=== PATIENT | male | born 1955 | race Caucasian/White ===

== ENCOUNTER → 2020-03-17 15:31 | Outpatient (BNVA) | payer OTHER, SELFPAY | PROVIDERS: PCP Nurse Practitioner; Referring Provider Nurse Practitioner; Visit Provider Urology | DX: R39.12 Poor urinary stream (principal); R35.1 Nocturia; R97.20 Elevated prostate specific antigen [PSA]; N40.1 Benign prostatic hyperplasia with lower urinary tract symptoms; Z12.5 Encounter for screening for malignant neoplasm of prostate | CPT/HCPCS: 99212; Q3014 ==

== ENCOUNTER → 2020-10-25 13:28 | Outpatient (BNVA) | payer OTHER, SELFPAY | PROVIDERS: Visit Provider Student in an Organized Health Care Education/Training Program | DX: R76.8 Other specified abnormal immunological findings in serum (principal) | CPT/HCPCS: 99212 ==

== ENCOUNTER 2020-12-15 06:02 | Outpatient (REF) | payer OTHER, SELFPAY ==
[2020-12-15 11:56] LABS: Alanine Aminotransferase 12 U/L (0-40); Albumin Level 4.4 g/dL (3.5-5.0); Alkaline Phosphatase 126 U/L (39-117); Anion Gap 13 (12-20); Aspartate Amino Transferase 17 U/L (5-37); Bilirubin Total 1.8 mg/dL (0.0-1.0); Blood Urea Nitrogen 9 mg/dL (9-16); Calcium 9.5 mg/dL (8.4-10.2); Carbon Dioxide 26 mmol/L (22-29); Chloride 106 mmol/L (96-108); Cholesterol 173 mg/dL; Estimated Glomerular Filt Rate > 60; Glucose Fasting 87 mg/dL (60-99); HDL Cholesterol 46 mg/dL; LDL Cholesterol Calculated 108 mg/dl; Potassium 4.5 mmol/L (3.3-5.1); Sodium 140 mmol/L (135-145); Total Protein 6.6 g/dL (6.5-8.0); Triglycerides 99 mg/dL
[2020-12-15 12:19] LABS: TSH reflex Free T4 1.37 uIU/mL (0.32-4.0); Vitamin D 25-OH Total 28.1 ng/mL (>30)
== END 2020-12-15 06:03 | disposition home or self-care (01) ==
LOC: HO.HMGCLDS 06:02
PROVIDERS: PCP Nurse Practitioner Family; Visit Provider Nurse Practitioner Family
DX: Z00.00 Encounter for general adult medical examination without abnormal findings (principal)
CPT/HCPCS: 36415; 80053; 80061; 82306; 84443

== ENCOUNTER 2021-03-15 13:13 | Outpatient (REF) | payer OTHER, SELFPAY ==
[2021-03-15 14:43] LABS: PSA,Total (Free>4and<10) 2.87 ng/mL (0.00-4.00)
== END 2021-03-15 13:14 | disposition home or self-care (01) ==
LOC: HO.HMGCLDS 13:13
PROVIDERS: PCP Nurse Practitioner Family; Visit Provider Urology
DX: R97.20 Elevated prostate specific antigen [PSA] (principal); Z12.5 Encounter for screening for malignant neoplasm of prostate
CPT/HCPCS: 36415; 84153

== ENCOUNTER → 2021-04-05 13:38 | Outpatient (BNVA) | payer OTHER, SELFPAY | PROVIDERS: PCP Nurse Practitioner Family; Referring Provider Nurse Practitioner Family; Visit Provider Nurse Practitioner | DX: R17 Unspecified jaundice (principal); R74.8 Abnormal levels of other serum enzymes; Z80.0 Family history of malignant neoplasm of digestive organs | CPT/HCPCS: 99212 ==

== ENCOUNTER 2021-06-01 13:38 | Outpatient (REF) | payer OTHER, SELFPAY ==
[2021-06-01 17:30] LABS: Prostate Specific Antigen 2.71 ng/mL (<0.05-4.0)
== END 2021-06-01 13:39 | disposition home or self-care (01) ==
LOC: HO.HMGCLDS 13:38
PROVIDERS: PCP Nurse Practitioner Family; Visit Provider Urology
DX: Z12.5 Encounter for screening for malignant neoplasm of prostate (principal); R97.20 Elevated prostate specific antigen [PSA]
CPT/HCPCS: 36415; 84153

== ENCOUNTER → 2021-06-19 15:33 | Outpatient (BNVA) | payer MEDICARE, SELFPAY | PROVIDERS: PCP Nurse Practitioner Family; Visit Provider Urology | DX: R97.20 Elevated prostate specific antigen [PSA] (principal) ==

== ENCOUNTER → 2021-06-20 11:16 | Outpatient (BNVA) | payer MEDICARE, SELFPAY | PROVIDERS: Visit Provider Urology | CPT/HCPCS: Q3014 ==

== ENCOUNTER 2021-06-26 09:24 | Outpatient (REF) | payer MEDICARE, SELFPAY ==
[2021-06-26 12:11] LABS: Alanine Aminotransferase 19 U/L (0-40); Albumin Level 4.4 g/dL (3.5-5.0); Alkaline Phosphatase 141 U/L (39-117); Aspartate Amino Transferase 17 U/L (5-37); Bilirubin Direct 0.6 mg/dL (0.0-0.5); Bilirubin Total 1.9 mg/dL (0.0-1.0); Total Protein 6.8 g/dL (6.5-8.0)
[2021-06-26 12:13] LABS: Gamma Glutamyl Transpeptidase 19 U/L (11-51)
[2021-06-26 12:27] LABS: Ferritin 78 ng/mL (20-250)
[2021-06-27 07:47] LABS: HBc Num1 0.09 S/CO (0.00-0.79); HBsAGNum1 0.19 S/CO (0.00-0.99); Hepatitis B Core Antibody Nonreactive (Nonreactive); Hepatitis B Surface Antigen Negative (Negative); ~HepC Num1 0.06 S/CO (0.00-0.79); ~Hepatitis C Antibody Nonreactive (Nonreactive)
[2021-06-27 08:27] LABS: HBS Num1 0.36 mIU/mL (0-7.99); Hepatitis A Antibody IgM 0.16 Index (0-0.79); ~Hepatitis A Antibody IgM Nonreactive (Nonreactive); ~Hepatitis B Surface Antibody NONREACTIVE (Nonreactive)
[2021-06-28 12:16] LABS: Alpha Fetoprotein 3.3 ng/mL (<6.1)
[2021-06-28 13:12] LABS: Anti Nuclear Antibody Screen NEGATIVE (NEGATIVE)
[2021-06-28 15:31] LABS: Mitochondrial Antibodies NEGATIVE (NEGATIVE)
[2021-07-02 10:22] LABS: Smooth Muscle Antibody <20 U (<20)
== END 2021-06-26 09:25 | disposition home or self-care (01) ==
LOC: HO.HMGCLDS 09:24
PROVIDERS: PCP Nurse Practitioner Family; Visit Provider Nurse Practitioner
DX: R17 Unspecified jaundice (principal); R74.8 Abnormal levels of other serum enzymes
CPT/HCPCS: 36415; 80076; 82105; 82728; 82977; 86015; 86038; 86039; 86255; 86256; 86704; 86706; 86709; 86803; 87340

== ENCOUNTER 2021-07-05 08:09 | Outpatient (REF) | payer MEDICARE, SELFPAY ==
--- NOTE | ~2021-07-05 | US_ITS ---
EXAMINATION: US ABDOMEN COMPLETE CLINICAL INFORMATION: Unspecified jaundice. COMPARISON: Ultrasound abdomen complete 04/16/2019. TECHNIQUE: Real-time imaging of the abdominal viscera. FINDINGS: PANCREAS: Normal. ABDOMINAL AORTA: The mid and the distal abdominal aorta are normal caliber. The proximal abdominal aorta is not visualized. INFERIOR VENA CAVA: Visualized portions are normal. LIVER: The liver is normal in size. The liver contour is normal. There is increased liver echogenicity. No focal hepatic lesion. There is no intrahepatic biliary duct dilatation seen. GALLBLADDER: The gallbladder is physiologically distended. Multiple mobile gallstones are present. No evidence of gallbladder wall thickening or pericholecystic fluid. COMMON BILE DUCT: Normal in caliber measuring 0.43 cm in diameter. RIGHT KIDNEY: No hydronephrosis or renal calculi. The kidney measures 11.2 cm in maximum dimension. There are several anechoic cysts. A lower pole cyst measures 0.76 x 0.63 x 0.47 cm, in midpole cyst measures 1.4 x 0.98 x 1.6 cm and a midpole cyst measures 3.3 x 2.4 x 2.7 cm. LEFT KIDNEY: No hydronephrosis or renal calculi. The kidney measures 12.1 cm in maximum dimension. There is anechoic cyst in the lower pole measuring 2.1 x 1.5 x 1.3 cm. SPLEEN: Normal. The spleen measures 10.7 cm in maximum dimension. FREE FLUID: None. US/US abdomen complete IMPRESSION: Bilateral simple renal cyst. No echogenic renal calculi or hydronephrosis. Gallstones with borderline wall thickness of 0.27 cm. Mild hepatic steatosis without focal lesions.
== END 2021-07-05 08:10 | disposition home or self-care (01) ==
LOC: HO.HMGCX 08:09
PROVIDERS: Visit Provider Nurse Practitioner
DX: R17 Unspecified jaundice (principal); R74.8 Abnormal levels of other serum enzymes
CPT/HCPCS: 76700

== ENCOUNTER → 2021-08-28 13:13 | Outpatient (BNVA) | payer MEDICARE, SELFPAY | PROVIDERS: PCP Nurse Practitioner Family; Visit Provider Nurse Practitioner | DX: K80.20 Calculus of gallbladder without cholecystitis without obstruction (principal); R74.8 Abnormal levels of other serum enzymes; R17 Unspecified jaundice | CPT/HCPCS: 99212 ==

== ENCOUNTER 2021-10-10 12:18 | Outpatient (REF) | payer MEDICARE, SELFPAY ==
[2021-10-10 14:00] LABS: Alanine Aminotransferase 24 U/L (0-40); Albumin Level 4.5 g/dL (3.5-5.0); Alkaline Phosphatase 121 U/L (39-117); Aspartate Amino Transferase 30 U/L (5-37); Bilirubin Direct 0.7 mg/dL (0.0-0.5); Bilirubin Total 2.6 mg/dL (0.0-1.0); Total Protein 6.7 g/dL (6.5-8.0)
== END 2021-10-10 12:19 | disposition home or self-care (01) ==
LOC: HO.LAB 12:18
PROVIDERS: PCP Nurse Practitioner Family; Visit Provider Nurse Practitioner
DX: K80.20 Calculus of gallbladder without cholecystitis without obstruction (principal); R17 Unspecified jaundice; R74.8 Abnormal levels of other serum enzymes
CPT/HCPCS: 36415; 80076

== ENCOUNTER → 2021-10-22 14:26 | Outpatient (BNVA) | payer MEDICARE, SELFPAY | PROVIDERS: PCP Nurse Practitioner Family; Referring Provider Nurse Practitioner Family; Visit Provider Nurse Practitioner | DX: K80.20 Calculus of gallbladder without cholecystitis without obstruction (principal); R74.8 Abnormal levels of other serum enzymes; R17 Unspecified jaundice | CPT/HCPCS: 99212 ==

== ENCOUNTER → 2021-10-24 15:12 | Outpatient (BNVA) | payer MEDICARE, SELFPAY | PROVIDERS: PCP Nurse Practitioner Family; Visit Provider Surgery | DX: K80.20 Calculus of gallbladder without cholecystitis without obstruction (principal) | CPT/HCPCS: 99202 ==

== ENCOUNTER → 2022-05-02 13:47 | Outpatient (BNVA) | payer MEDICARE, SELFPAY | PROVIDERS: PCP Nurse Practitioner Family; Visit Provider Nurse Practitioner | DX: K80.20 Calculus of gallbladder without cholecystitis without obstruction (principal); R74.8 Abnormal levels of other serum enzymes; R17 Unspecified jaundice; Z98.890 Other specified postprocedural states | CPT/HCPCS: 99212 ==

== ENCOUNTER 2022-06-07 09:32 | Outpatient (REF) | payer MEDICARE, SELFPAY ==
[2022-06-07 11:22] LABS: MANUAL DIFF FLAG NO
[2022-06-07 11:29] LABS: Basophils Absolute Auto 0.1 X10*3/uL (0.0-0.2); Basophils Percent Auto 1.3 % (0-2); Eosinophils Absolute Auto 0.2 X10*3/uL (0.0-0.4); Eosinophils Percent Auto 4.1 % (0-4); Hematocrit 45.7 % (42.0-52.0); Hemoglobin 15.3 g/dl (14.0-18.0); Lymphocytes Absolute Auto 1.3 X10*3/uL (1.2-4.9); Lymphocytes Percent Auto 29.1 % (20-40); Mean Corpuscular HGB Conc 33.5 g/dl (31.0-36.0); Mean Corpuscular Hemoglobin 30.9 pg (27.0-33.0); Mean Corpuscular Volume 92.3 fL (80.0-98.0); Mean Platelet Volume 10.2 fL (9.4-12.4); Monocytes Absolute Auto 0.6 X10*3/uL (0.1-1.2); Monocytes Percent Auto 13.7 % (2-11); Neutrophils Absolute Auto 2.4 x10*3/uL (2.0-8.3); Neutrophils Percent Auto 51.8 % (45-73); Platelet Count 233 X10*3/uL (160-400); Red Blood Count 4.95 X10*6/uL (4.60-5.80); White Blood Count 4.6 X10*3/uL (4.8-10.8)
[2022-06-07 11:32] LABS: Appearance Urine Cloudy; Color Urine Yellow; Glucose Urine UA Negative (Negative); Leukocyte Esterase Urine Trace (Negative); Nitrite Urine Negative (Negative); PH 8.5 (5.0-9.0); Specific Gravity - Urine 1.015 (1.005-1.025); UMIC TRIGGER UACC YES; Urine Blood Negative (Negative); Urine Ketones Negative (Negative); Urine Protein Negative (Neg-Trace)
[2022-06-07 11:38] LABS: Bacteria Urine None Seen (None Seen); Hyaline Casts Urine 0-2 /LPF (0-2); RBC Urine 0-2 /HPF (0-2); Squamous Epithelial Cell Urine 0-2 /HPF (0-2); UACC Culture Trigger YES
[2022-06-07 12:02] LABS: Alanine Aminotransferase 40 U/L (0-40); Albumin Level 4.2 g/dL (3.5-5.0); Alkaline Phosphatase 129 U/L (39-117); Anion Gap 11 (12-20); Aspartate Amino Transferase 28 U/L (5-37); Bilirubin Total 1.9 mg/dL (0.0-1.0); Blood Urea Nitrogen 10 mg/dL (9-16); Calcium 9.5 mg/dL (8.4-10.2); Carbon Dioxide 31 mmol/L (22-29); Chloride 104 mmol/L (96-108); Cholesterol 158 mg/dL; Estimated Glomerular Filt Rate > 60; Glucose Fasting 96 mg/dL (60-99); HDL Cholesterol 36 mg/dL; LDL Cholesterol Calculated 94 mg/dl; Potassium 4.2 mmol/L (3.3-5.1); Prostate Specific Antigen 1.93 ng/mL (<0.05-4.0); Sodium 142 mmol/L (135-145); Total Protein 6.5 g/dL (6.5-8.0); Triglycerides 141 mg/dL
== END 2022-06-07 09:33 | disposition home or self-care (01) ==
LOC: HO.HMGCLDS 09:32
PROVIDERS: Absent Provider Urology; PCP Nurse Practitioner Family; Visit Provider Nurse Practitioner Family
DX: Z00.00 Encounter for general adult medical examination without abnormal findings (principal); Z12.5 Encounter for screening for malignant neoplasm of prostate; N40.1 Benign prostatic hyperplasia with lower urinary tract symptoms; N13.8 Other obstructive and reflux uropathy
CPT/HCPCS: 36415; 80053; 80061; 81001; 84153; 84443; 85025; 87086

== ENCOUNTER → 2022-06-19 14:26 | Outpatient (BNVA) | payer MEDICARE, SELFPAY | PROVIDERS: PCP Nurse Practitioner Family; Visit Provider Urology | DX: N40.1 Benign prostatic hyperplasia with lower urinary tract symptoms (principal); N13.8 Other obstructive and reflux uropathy; R35.1 Nocturia | CPT/HCPCS: 51798; 99212 ==

== ENCOUNTER 2022-07-01 09:58 | Outpatient (REF) | payer MEDICARE, SELFPAY ==
[2022-07-05 13:33] LABS: Alk.Phos Iso. Macrohepatic 0 % (<=0); Alk.Phos Isoenzymes Bone 32 % (28-66); Alk.Phos Isoenzymes Intest 10 % (1-24); Alk.Phos Isoenzymes Liver 58 % (25-69); Alk.Phos Isoenzymes Placental 0 % (<=0); Alk.Phos Isoenzymes Total 108 U/L (35-144)
== END 2022-07-01 09:59 | disposition home or self-care (01) ==
LOC: HO.HMGCLDS 09:58
PROVIDERS: PCP Nurse Practitioner Family; Visit Provider Nurse Practitioner Family
DX: R74.8 Abnormal levels of other serum enzymes (principal)
CPT/HCPCS: 36415; 84080

== ENCOUNTER 2023-01-07 08:47 | Outpatient (AMB) | payer MEDICARE, SELFPAY ==
--- NOTE | 2023-01-07 09:02 | MHC.OFFVIS ---
Intake Vital Signs 01/07/23 09:03 Height 6 ft 3 in Weight 252 lb 10.396 oz BMI 31.6 BP 135/75 Blood Pressure Location Lt brachial Position Sitting Pulse 65 Intake Visit Reasons: 6 months follow up. Intake Note: Patient presents to in office visit today in 6 months follow up of elevated alkaline phosphate level. CC: Patient states he is doing fine. Denies having any GI symptoms or concerns today. C.O.D. Audit Clerk Required: No Accompanied by: Self / Same As Patient Allergies chlorthalidone [CHLORTHALIDONE] Allergy (Mild, Verified 01/07/23 09:04) RASH , Rash zinc [ZINC] Allergy (Mild, Verified 01/07/23 09:04) RASH, TINGLING IN MOUTH, Rash HPI 6 months follow up. HPI Details Assessment & Plan (1) Gallstones: Code(s): K80.20 - Calculus of gallbladder without cholecystitis without obstruction Plan: e lost his job so he is not taking the creon - but no worse for this. Say surgery and they do not feel the GB needs to come out. He will be eligible for Medicare in Jul.. At that time we can decide if he wants to go back on the Creon depending on how he is feeling. Will continue to monitor his bilirubin level but I strongly feel that this is probably Gilbert's syndrome syndrome. He will be flying out to see his daughter since they have frequent Flyer miles available and she feeds them and puts them out at her house in [place] so this is a nice little get away for he and his . ROV 6 mos. (2) Elevated alkaline phosphatase level: Code(s): R74.8 - Abnormal levels of other serum enzymes (3) Elevated bilirubin: Code(s): R17 - Unspecified jaundice (4) H/O colonoscopy: Code(s): Z98.890 - Other specified postprocedural states TODAY'S VISIT He is asymptomatic with regards to the the gallstones. Will repeat labs, (adding chol panel for his PCP ad favor). Reviewed alarm sg/sx. He is originally sent here because of concerns of elevated bilirubin alk-phos but since he is asymptomatic I think this is mostly Gilbert's syndrome syndrome. Again, he consult to General surgery and they did not feel cholecystectomy was appropriate. Given his lack of symptoms I do not think he needs Creon. His only new diagnosis is MGUS. He continues to go to [place] to visit grand daughter! ROV 6 mos. At the next appointment we should again discussed possible repeat colonoscopy since he has a family history of colon cancer any put office 2019 procedure because of an insurance lapse. He is now on Medicare. [facility], [facility] Medical History (Updated 01/07/23 @ 09:34 by SANKET Hardin) NARINDER positive BPH (benign prostatic hyperplasia) Elevated PSA Heart murmur History of recurrent UTIs Hyperlipidemia Hypertension Monoclonal gammopathy of unknown significance (MGUS) Normal colonoscopy Osteoarthritis Surgical History (Updated 01/07/23 @ 09:07 by CATY Ghosh) H/O colonoscopy H/O vasectomy History of arthroscopy of knee Family History Father Lung cancer HTN (hypertension) Mother CVD (cardiovascular disease) Kidney disease Cancer Other Mental health disorder Substance use disorder Social History Housing: House Alcohol intake: never Patient Tobacco Use Status: Never used Tobacco e-Cigarette/Vaping Use: Never Used Second Hand Smoke Exposure: Yes service: No Current 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 occupational exposures/hazards: No Cognitive needs: No Hearing needs: No Vision needs: Yes Review of Systems Const Denies fatigue, Denies fever(s), Denies night sweats, Denies poor appetite and Denies weight loss Eyes Details: glasses Reports requires corrective lenses ENT Reports Normal hearing present, Denies dental pain, Denies dysphagia, Denies hearing loss, Denies mouth pain, Denies odynophagia, Denies throat swelling, Denies tongue swelling and Reports other (Dentition adequate) Card Reports no additional complaints Resp Reports no additional complaints GI Denies abdominal pain, Denies melena, Denies bloating, Denies hematochezia, Denies constipation, Denies GI cramping, Denies dysphagia, Denies excessive flatus, Denies early satiety, Denies heartburn, Denies diarrhea, Denies nausea, Denies odynophagia, Denies vomiting and Denies hematemesis Skin/Breast Denies pruritus, Denies lesions, Denies rash and Denies jaundice Neuro Reports Normal hearing present and Denies Abnormal speech present Endo Denies fatigue Aller/Immun Denies throat swelling and Denies tongue swelling Physical Exam Vital Signs: Last Vital Signs Pulse 65 01/07/23 09:03 BP 135/75 01/07/23 09:03 BMI result Body Mass Index 31.6 Const General: cooperative, no acute distress, well developed and well groomed Nutritional Appearance: well nourished and overweight Orientation/consciousness: oriented to person, oriented to place and oriented to time Limitations: No language barrier HEENT Head: Yes normocephalic and Yes atraumatic Eyes General: appearance normal, both eyes and all related structures Pupils: Equal, round and reactive pupils present Neck Neck: Yes normal visual inspection and Yes no lymphadenopathy Thyroid: Thyroid normal Resp Effort & Inspection: normal respiratory effort and able to speak in complete sentences Auscultation: clear to auscultation bilaterally Cardio Rate: regular rate Rhythm: regular rhythm Heart sounds: Normal, physiologic split S2 sound present Peripheral pulses: radial pulses present and posterior tibial pulses present GI Inspection: No distended, No Abdominal panniculus present and Yes obesity Palpation (GI): Soft to palpation, nontender, no guarding, not rigid and No hepatosplenomegaly present Percussion: Yes normal to percussion Auscultation: normal bowel sounds Rectal Exam - Male: Yes deferred Skin General skin exam: no rashes or lesions noted, turgor normal, skin not dry, no jaundice, No spider nevi and no striae Rashes: no rashes Nails: normal Neuro General: oriented to person, oriented to place and oriented to time Cranial nerves: Yes Equal, round and reactive pupils present and Yes Normal hearing present Speech: No Abnormal speech present Extrem General: Yes normal to inspection, No clubbing, No cyanosis and No edema Psych Appearance: grossly normal and well kempt Mental Status: mental status grossly normal Speech and movement: Normal speech and movement present Affect: normal affect Attitude: cooperative Thought process: Normal thought process present and not confabulating Thought content: Normal thought content present Insight: Fair insight present (Psych) Judgement: Fair judgement present (Psych) Assessment & Plan Assessment & Plan (1) Gallstones: Code(s): K80.20 - Calculus of gallbladder without cholecystitis without obstruction Plan: He is asymptomatic with regards to the the gallstones. Will repeat labs, (adding chol panel for his PCP ad favor). Reviewed alarm sg/sx. He is originally sent here because of concerns of elevated bilirubin alk-phos but since he is asymptomatic I think this is mostly Gilbert's syndrome syndrome. Again, he consult to General surgery and they did not feel cholecystectomy was appropriate. Given his lack of symptoms I do not think he needs Creon. His only new diagnosis is MGUS. He continues to go to [place] to visit grand daughter! ROV 6 mos. At the next appointment we should again discussed possible repeat colonoscopy since he has a family history of colon cancer any put office 2019 procedure because of an insurance lapse. He is now on Medicare. (2) Elevated alkaline phosphatase level: Code(s): R74.8 - Abnormal levels of other serum enzymes (3) Elevated bilirubin: Code(s): R17 - Unspecified jaundice (4) High cholesterol: Code(s): E78.00 - Pure hypercholesterolemia, unspecified Orders: Orders Comprehensive Met. Panel Today E78.00 - Pure hypercholesterolemia, unspecified, R17 - Unspecified jaundice, R74.8 - Abnormal levels of other serum enzymes Lipid Panel Today E78.00 - Pure hypercholesterolemia, unspecified, R17 - Unspecified jaundice, R74.8 - Abnormal levels of other serum enzymes Bilirubin Direct Today E78.00 - Pure hypercholesterolemia, unspecified, R17 - Unspecified jaundice, R74.8 - Abnormal levels of other serum enzymes TSH reflex Free T4 Today E78.00 - Pure hypercholesterolemia, unspecified, R17 - Unspecified jaundice, R74.8 - Abnormal levels of other serum enzymes Coding Level of Care Code Est Pt Level 3 (71782) Diagnoses Gallstones K80.20 Elevated alkaline phosphatase level R74.8 Elevated bilirubin R17 High cholesterol E78.00
[2023-01-07 09:03] VITALS: BP 135/75; PULSE 65; BMI 31.6
== END 2023-01-07 09:38 | disposition home or self-care (01) ==
PROVIDERS: PCP Nurse Practitioner Family; Visit Provider Nurse Practitioner
DX: K80.20 Calculus of gallbladder without cholecystitis without obstruction (principal); R74.8 Abnormal levels of other serum enzymes; R17 Unspecified jaundice; E78.00 Pure hypercholesterolemia, unspecified
CPT/HCPCS: 99213

== ENCOUNTER → 2023-01-07 08:47 | Outpatient (BNVA) | payer MEDICARE, SELFPAY | PROVIDERS: PCP Nurse Practitioner Family; Visit Provider Nurse Practitioner | DX: K80.20 Calculus of gallbladder without cholecystitis without obstruction (principal); R74.8 Abnormal levels of other serum enzymes; R17 Unspecified jaundice; E78.00 Pure hypercholesterolemia, unspecified | CPT/HCPCS: 99212 ==

== ENCOUNTER 2023-01-08 08:06 | Outpatient (REF) | payer MEDICARE, SELFPAY ==
[2023-01-08 12:07] LABS: Alanine Aminotransferase 22 U/L (0-40); Albumin Level 4.3 g/dL (3.5-5.0); Alkaline Phosphatase 118 U/L (39-117); Anion Gap 10 (12-20); Aspartate Amino Transferase 21 U/L (5-37); Bilirubin Direct 0.5 mg/dL (0.0-0.5); Bilirubin Total 1.7 mg/dL (0.0-1.0); Blood Urea Nitrogen 13 mg/dL (9-16); Calcium 9.5 mg/dL (8.4-10.2); Carbon Dioxide 26 mmol/L (22-29); Chloride 109 mmol/L (96-108); Cholesterol 169 mg/dL; Estimated Glomerular Filt Rate > 60; Glucose Random 93 mg/dL (60-115); HDL Cholesterol 41 mg/dL; LDL Cholesterol Calculated 109 mg/dl; Potassium 4.3 mmol/L (3.3-5.1); Sodium 141 mmol/L (135-145); Total Protein 6.7 g/dL (6.5-8.0); Triglycerides 97 mg/dL
[2023-01-08 12:19] LABS: TSH reflex Free T4 1.03 uIU/mL (0.32-4.0)
== END 2023-01-08 08:07 | disposition home or self-care (01) ==
LOC: HO.HMGCLDS 08:06
PROVIDERS: PCP Nurse Practitioner Family; Visit Provider Nurse Practitioner
DX: R17 Unspecified jaundice (principal); R74.8 Abnormal levels of other serum enzymes; E78.00 Pure hypercholesterolemia, unspecified
CPT/HCPCS: 36415; 80053; 80061; 82248; 84443

== ENCOUNTER 2023-02-03 09:18 | Outpatient (AMB) | payer MEDICARE, SELFPAY ==
--- NOTE | 2023-02-03 09:18 | A.OFFPC_ITS ---
Vital Signs 02/03/23 09:20 Height 6 ft 3 in Weight 259 lb 2 oz BMI 32.4 BP 132/68 Blood Pressure Location Lt brachial Position Sitting Pulse 63 Pulse Source Pulse Oximeter Pulse Oximetry (%) 97 Oxygen Delivery Method Room Air Intake Visit Reasons: 4 month follow up Allergies chlorthalidone [CHLORTHALIDONE] Allergy (Mild, Verified 02/03/23 09:22) RASH , Rash zinc [ZINC] Allergy (Mild, Verified 02/03/23 09:22) RASH, TINGLING IN MOUTH, Rash Medication List - Last Reconciled 02/03/23 by FELICITAS Hunt-JOHN amlodipine 10 mg PO DAILY cholecalciferol (vitamin D3) (Vitamin D3) 50 mcg PO DAILY finasteride 5 mg PO .every other day lisinopril 40 mg PO DAILY metoprolol succinate ER 50 mg PO DAILY sildenafil 100 mg PO NEEDED PRN 20 days tamsulosin 0.4 mg PO BEDTIME 90 days vit C,B-Jw-xoucc-lutein-zeaxan 250-90-40-1 mg (PreserVision AREDS-2) 1 tab PO BID Tobacco use date assessed: 02/03/23 Fall risk assessment: No Falls in past year Last assessed Fall Risk: 02/03/23 Dental Screening Dental Screen Date: 02/03/23 Did you have a dental visit in the last 12 months?: No Did you have a dental problem in the last 6 months where you did not have access to dental care?: No Was dental information given to patient?: Patient has dentist HPI 4 month follow up HPI Details Pt reports one episode of hematuria. He does not have any pain with this. Will order US and UA. Pt has refused CT due to vertigo. Pt is also following up with urology. Denies any flank pain. HTN: Blood pressure is stable, managed with amlodipine 10mg, lisinopril 40mg, and metoprolol 50mg. Denies chest pain, shortness of breath, headache, dizziness, and blurred vision. [facility] Medical History (Updated 02/03/23 @ 09:43 by EVER Hunt) NARINDER positive BPH (benign prostatic hyperplasia) Elevated PSA Heart murmur History of recurrent UTIs Hyperlipidemia Hypertension Monoclonal gammopathy of unknown significance (MGUS) Normal colonoscopy Osteoarthritis Surgical History (Updated 01/07/23 @ 09:07 by CATY Ghosh) H/O colonoscopy H/O vasectomy History of arthroscopy of knee Family History Father Lung cancer HTN (hypertension) Mother CVD (cardiovascular disease) Kidney disease Cancer Other Mental health disorder Substance use disorder Social History Housing: House Alcohol intake: never Patient Tobacco Use Status: Never used Tobacco e-Cigarette/Vaping Use: Never Used Second Hand Smoke Exposure: Yes service: No Current 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 Rafi Johnson, Carla Thurman, Rivera Benites and colleagues, with an educational samir from [employer]. Review of Systems Const Reports as per HPI Physical exam (Primary Care) Vital Signs: Last Vital Signs Pulse 63 02/03/23 09:20 BP 132/68 02/03/23 09:20 Pulse Ox 97 02/03/23 09:20 Oxygen Delivery Method Room Air 02/03/23 09:20 BMI result Body Mass Index 32.4 Tobacco/Smoking Status: Tobacco use Status Tobacco use date assessed 02/03/23 02/03/23 09:26 Patient Tobacco Use Status Never used Tobacco 02/03/23 09:18 e-Cigarette/Vaping Use Never Used 02/03/23 09:18 Thrive Assessment: Date of Thrive Assessment Date Thrive assessed 07/01/22 02/03/23 09:18 Const General: cooperative Nutritional Appearance: obese Orientation/consciousness: patient oriented x3 Resp Effort & Inspection: normal respiratory effort Auscultation: clear to auscultation bilaterally Cardio Rate: regular rate Rhythm: regular rhythm Heart sounds: S1 normal heart sound present and S2 normal heart sound present Other: no CVA tenderness bilat Neuro General: patient oriented x3 Extrem Right lower extremity: edema (trace) Left lower extremity: edema (trace) Psych Appearance: grossly normal Mental Status: mental status grossly normal Speech and movement: Normal speech and movement present Affect: normal affect Attitude: cooperative Thought process: Normal thought process present Thought content: Normal thought content present Insight: Good insight present (Psych) Judgement: Good judgement present (Psych) Assessment and Plan Assessment & Plan (1) Hematuria: Code(s): R31.9 - Hematuria, unspecified Plan: ordering retro US, pt sees urology (2) Hypertension: Code(s): I10 - Essential (primary) hypertension Plan: Continue current meds Plan The patient agreed to the use of a medical attendant for this encounter. Scribed for FELICITAS Briceno-BC by Aretha Medley medical attendant, on 02/03/2023 at 09:40 EST. Orders: Orders UA CC w/rflx Micro + Cult Today R31.9 - Hematuria, unspecified US retroperitoneal comp Today R31.9 - Hematuria, unspecified Comprehensive Met. Panel Today R31.9 - Hematuria, unspecified Complete Blood Count Auto Diff Today R31.9 - Hematuria, unspecified Coding Level of Care Code Est Pt Level 3 (00476) Diagnoses Hematuria R31.9 Hypertension I10
[2023-02-03 09:20] VITALS: BP 132/68; PULSE 63; O2SAT 97; BMI 32.4
== END 2023-02-03 09:54 | disposition home or self-care (01) ==
PROVIDERS: Visit Provider Nurse Practitioner Family
DX: R31.9 Hematuria, unspecified (principal); I10 Essential (primary) hypertension
CPT/HCPCS: 99213

== ENCOUNTER 2023-02-14 11:19 | Outpatient (REF) | payer MEDICARE, SELFPAY ==
--- NOTE | ~2023-02-14 | US_ITS ---
EXAMINATION: US RETROPERITONEAL COMPLETE (RENAL) CLINICAL INFORMATION: Hematuria, unspecified. COMPARISON: Ultrasound abdomen complete 07/05/2021 and 04/16/2019. TECHNIQUE: Real-time imaging of the kidneys and bladder. FINDINGS: RIGHT KIDNEY: 13.7 x 6.5 x 7.1 cm (SAG x AP x TRV). The kidney is normal in size, contour, and echogenicity. Renal cortical thickness is normal. No renal calculi or hydronephrosis. There multiple simple anechoic cysts. They measure 3.6 x 3.2 x 3.6 and 1.4 x 1.1 x 1.3 cm in midpole and 0.8 x 0.6 x 0.7 cm in lower pole. LEFT KIDNEY: 12.2 x 5.4 x 5.3 cm (SAG x AP x TRV). The kidney is normal in size, contour, and echogenicity. Renal cortical thickness is normal. No renal calculi or hydronephrosis. There are multiple anechoic cysts. Upper pole cyst measures 2.3 x 2.3 x 2.3 cm and lower pole cyst measures 2.7 x 1.7 x 1.8 and 0.8 x 0.6 x 1.0). BLADDER: Well distended and normal. The bladder wall is calculated and mildly thickened measuring 0.29 seen. There is a mobile echogenic stone measuring 2.1 x 1.0 x 2.0 cm in the dependent portion. Bilateral ureteral jets are demonstrated. Prevoid bladder volume is 194 mL. Postvoid bladder volume is 104 mL. ADDITIONAL FINDINGS: Prostate volume measures 57 mL. US/US retroperitoneal comp IMPRESSION: Mobile echogenic bladder stone. Moderate postvoid residual volume of 10 4 mL. Normal bilateral ureteral jets. Mild prostate enlargement. Simple bilateral renal cysts for which no further workup is needed.
== END 2023-02-14 11:20 | disposition home or self-care (01) ==
LOC: HO.HMGCX 11:19
PROVIDERS: PCP Nurse Practitioner Family; Visit Provider Nurse Practitioner Family
DX: R31.9 Hematuria, unspecified (principal)
CPT/HCPCS: 76770

== ENCOUNTER 2023-05-05 09:26 | Outpatient (REF) | payer MEDICARE, SELFPAY ==
[2023-05-05 13:07] LABS: Prostate Specific Antigen 2.51 ng/mL (<0.05-4.0)
== END 2023-05-05 09:27 | disposition home or self-care (01) ==
LOC: HO.HMGCLDS 09:26
PROVIDERS: PCP Nurse Practitioner Family; Visit Provider Urology
DX: Z12.5 Encounter for screening for malignant neoplasm of prostate (principal); N40.1 Benign prostatic hyperplasia with lower urinary tract symptoms
CPT/HCPCS: 36415; 84153

== ENCOUNTER 2023-05-14 09:56 | Outpatient (AMB) | payer MEDICARE, SELFPAY ==
--- NOTE | 2023-05-14 10:27 | A.OFFVIS_ITS ---
Intake Intake Visit Reasons: 1Y PSA/Bladder Issues(set) Intake Note: Patient is present for PSA/PVR Follow Up Urology Med: Tamsulosin, Finasteride Blood Thinner: None PVR: 24mL Household Appliances Salesperson Required: No Accompanied by: Self / Same As Patient Allergies chlorthalidone [CHLORTHALIDONE] Allergy (Mild, Verified 05/14/23 10:28) RASH , Rash zinc [ZINC] Allergy (Mild, Verified 05/14/23 10:28) RASH, TINGLING IN MOUTH, Rash HPI HPI Comments History of Present Illness Details Shaka is a pleasant male. He is a patient of Dr. Monsivais. He is seen for the following urologic conditions - lower urinary tract symptoms - elevated PSA - erectile dysfunction - bladder stone Had been having urgency and frequency PCP did retroperitoneal ultrasound 2 cm stone noted in bladder Recommend cystoscopy with laser bladder stone PSA remains stable Bladder Stone Imaging - 05/08 There is a mobile echogenic ston e measuring 2.1 x 1.0 x 2.0 cm in the dependent portion. Bilateral ureteral jets are demonstrated. Prevoid bladder volume is 194 mL. Postvoid bladder volume is 104 mL. Prostate volume measures 57 mL. Elevated PSA/Abnormal MARY: Continue with finasteride PSA dropped appropriately to 50% initial value He presents for further evaluation of elevated PSA. Current management is observation. Laboratory investigations include 04/03 , a total PSA evaluation 5.4 - PSA 08/05 3.1, 03/05 3.1, 06/05 2.7, 06/06 2.0, 05/08 2.5 Therapeutic plan will be continue with finasteride and review in 12 months [facility] Medical History (Updated 02/03/23 @ 09:43 by Cole Zelaya, [facility]) Monoclonal gammopathy of unknown significance (MGUS) NARINDRE positive Normal colonoscopy Heart murmur Osteoarthritis Hyperlipidemia Elevated PSA History of recurrent UTIs BPH (benign prostatic hyperplasia) Hypertension Surgical History (Updated 01/07/23 @ 09:07 by CATY Ghosh) H/O colonoscopy H/O vasectomy History of arthroscopy of knee Family History Father Lung cancer HTN (hypertension) Mother CVD (cardiovascular disease) Kidney disease Cancer Other Mental health disorder Substance use disorder Social History Housing: House Alcohol intake: never Patient Tobacco Use Status: Never used Tobacco e-Cigarette/Vaping Use: Never Used Second Hand Smoke Exposure: Yes service: No Current 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 occupational exposures/hazards: No Cognitive needs: No Hearing needs: No Vision needs: Yes Review of Systems Const Denies chills and Denies fever(s) Card Reports no additional complaints and Denies syncope Resp Denies cough GI Denies abdominal pain and Denies heartburn Reports as per HPI and Denies change in libido Neuro Denies syncope Psych Denies change in libido Endo Denies change in libido Physical Exam Const General: cooperative, healthy appearing, comfortable and no acute distress Orientation/consciousness: patient oriented x3 HEENT Face and sinus: Yes normal facial exam Mouth: moist mucous membranes Neck Neck: Yes normal visual inspection, Yes full ROM and Yes trachea midline Chest Chest palpation & inspection: normal inspection of the chest Resp Effort & Inspection: normal respiratory effort, able to speak in complete sentences and no respiratory distress GI Inspection: Yes normal to inspection Back/Spine/Pelvis Cervical Spine: normal cervical lordosis Thoracic/Lumbar Spine: thoracic and lumbar spine normal to inspection Skin General skin exam: no rashes or lesions noted Neuro General: patient oriented x3, gait normal, tone normal and moves all extremities Extrem General: Yes normal to inspection and Yes capillary refill normal Office Procedures Post Void Residual Post Residual Void Post Void Residual (PVR): 24 [id number] Void Residual by ultrasound Assessment & Plan Assessment & Plan (1) BPH loc w urin obs/LUTS: Code(s): N40.1 - Benign prostatic hyperplasia with lower urinary tract symptoms (2) Nocturia more than twice per night: Code(s): R35.1 - Nocturia Plan Risks, benefits and alternatives to therapy were discussed. These include but are not limited to infection, bleeding, damage to local organs and tissues, need for further interventions. Anesthetic risks regarding cardiac arrhythmia, blood clots, and potential mortality were discussed. The patient understands the typical recovery time and the outpatient nature of the procedure. After consideration of these risks the patient gives full informed consent and they wish to move ahead with the procedure. Cystoscopy, bladder stone laser Orders: Orders AMB Post Void Residual by ultrasound Today N39.8 - Other specified disorders of urinary system Patient Instructions: Imaging studies, laboratory and physical exam results were discussed and reviewed in detail. No major barriers to patient understanding were identified. An opportunity to ask questions regarding the treatment plan was provided. All questions were answered. The patient expressed understanding and agreement with the above treatment plan. The patient is aware they should contact our office by phone for worsening of their current condition or the appearance of new urologic symptoms. Compliance is encouraged with any medications and followup testing that is ordered. It is a privilege to participate in the urologic care of your patient. If you have any questions or concerns regarding treatment for the above conditions, or other urologic issues, please do not hesitate to contact me. The office telephone contact is [phone]. This note is constructed using voice recognition software. While every effort has been made to ensure accuracy court messenger errors may have been included. Yours sincerely, Dr Jamal Vital MD, [facility] - Urology Providers of Expert, Compassionate Care for the Genitourinary System Coding Level of Care Code Est Pt Level 4 (88744) Diagnoses BPH loc w urin obs/LUTS N40.1 Nocturia more than twice per night R35.1 CPT Codes Post Residual Void - PVR CPT Code: 44546-Rulm Void Residual by ultrasound ([id number])
== END 2023-05-14 11:23 | disposition home or self-care (01) ==
PROVIDERS: Visit Provider Urology
DX: N40.1 Benign prostatic hyperplasia with lower urinary tract symptoms (principal); R35.1 Nocturia
CPT/HCPCS: 99214

== ENCOUNTER → 2023-05-14 09:56 | Outpatient (BNVA) | payer MEDICARE, SELFPAY | PROVIDERS: Visit Provider Urology | DX: N40.1 Benign prostatic hyperplasia with lower urinary tract symptoms (principal); R35.1 Nocturia | CPT/HCPCS: 51798; 99212 ==

== ENCOUNTER 2023-06-05 12:09 | Outpatient (REF) | payer MEDICARE, SELFPAY ==
[2023-06-05 13:19] LABS: MANUAL DIFF FLAG NO
[2023-06-05 13:37] LABS: Basophils Absolute Auto 0.1 X10*3/uL (0.0-0.2); Basophils Percent Auto 0.9 % (0-2); Eosinophils Absolute Auto 0.1 X10*3/uL (0.0-0.4); Eosinophils Percent Auto 1.7 % (0-4); Hematocrit 44.7 % (42.0-52.0); Imm Gran Abs Auto 0.03 X10*3/uL (0.00-0.03); Imm Gran Pct Auto 0.4 % (0.0-0.4); Lymphocytes Percent Auto 13.7 % (20-40); Mean Corpuscular HGB Conc 33.6 g/dl (31.0-36.0); Mean Corpuscular Hemoglobin 31.8 pg (27.0-33.0); Mean Corpuscular Volume 94.9 fL (80.0-98.0); Monocytes Absolute Auto 0.6 X10*3/uL (0.1-1.2); Monocytes Percent Auto 8.3 % (2-11); Neutrophils Absolute Auto 5.6 x10*3/uL (2.0-8.3); Platelet Count 257 X10*3/uL (160-400); Red Blood Count 4.71 X10*6/uL (4.60-5.80); Red Cell Distribution Width 12.5 % (11.0-16.0); White Blood Count 7.4 X10*3/uL (4.8-10.8)
[2023-06-05 14:24] LABS: Alanine Aminotransferase 17 U/L (0-40); Albumin Level 4.6 g/dL (3.5-5.0); Alkaline Phosphatase 130 U/L (39-117); Anion Gap 13 (12-20); Aspartate Amino Transferase 20 U/L (5-37); Blood Urea Nitrogen 17 mg/dL (9-16); Calcium 10.1 mg/dL (8.4-10.2); Carbon Dioxide 28 mmol/L (22-29); Chloride 106 mmol/L (96-108); Estimated Glomerular Filt Rate > 60; Glucose Random 99 mg/dL (60-115); Potassium 4.7 mmol/L (3.3-5.1); Sodium 142 mmol/L (135-145); Total Protein 7.2 g/dL (6.5-8.0)
[2023-06-05 16:16] LABS: Appearance Urine Cloudy; Color Urine Yellow; Glucose Urine UA Negative (Negative); Leukocyte Esterase Urine Moderate (2+) (Negative); Nitrite Urine Negative (Negative); PH 5.5 (5.0-9.0); Specific Gravity - Urine 1.025 (1.005-1.025); UMIC TRIGGER UACC YES; Urine Blood Moderate (2+) (Negative); Urine Ketones Trace mg/dL (Negative); Urine Protein 100 (2+) mg/dL (Neg-Trace)
[2023-06-05 16:50] LABS: Bacteria Urine 2+ (None Seen); Calcium Oxalate Crystals Urine Present; Hyaline Casts Urine 0-2 /LPF (0-2); RBC Urine >20 /HPF (0-2); Squamous Epithelial Cell Urine 0-2 /HPF (0-2); UACC Culture Trigger YES; WBC Urine >50 /HPF (0-5)
== END 2023-06-05 12:10 | disposition home or self-care (01) ==
LOC: HO.HMGCLDS 12:09
PROVIDERS: PCP Nurse Practitioner Family; Visit Provider Nurse Practitioner Family
DX: R31.9 Hematuria, unspecified (principal)
CPT/HCPCS: 36415; 80053; 81001; 85025; 87086; 87088

== ENCOUNTER 2023-06-30 06:06 | Day surgery (SDC) | payer MEDICARE, SELFPAY ==
[2023-06-25 14:41] VITALS: BMI 32.4
--- NOTE | 2023-06-27 10:18 | HO.ANESPROP2 ---
Documented by User: Abbi Stoner NP 06/27/23 10:19 HPI - Anesthesia Eval Consult details Narrative: 67yo M for Cystoscopy Bladder Stone Laser PMFSH Active Problems Active Problems: All Active Problems (Updated 02/03/23 @ 09:43 by Cole Zelaya, [facility]) Hematuria (Acute) High cholesterol (Acute) Gallstones (Acute) Family history of colon cancer (Acute) Elevated alkaline phosphatase level (Acute) Elevated bilirubin (Acute) Physical exam (Acute) NARINDER positive (Acute) Hypertension (Acute) Elevated PSA (Acute) BPH loc w urin obs/LUTS (Acute) Nocturia more than twice per night (Acute) Weak urinary stream (Acute) Abnormal SPEP (Acute) Past Medical History Medical History Monoclonal gammopathy of unknown significance (MGUS) NARINDER positive Normal colonoscopy Heart murmur Osteoarthritis Hyperlipidemia Elevated PSA History of recurrent UTIs BPH (benign prostatic hyperplasia) Hypertension Family History Family History Father Lung cancer HTN (hypertension) Mother CVD (cardiovascular disease) Kidney disease Cancer Other Mental health disorder Substance use disorder Surgical History Surgical History H/O colonoscopy H/O vasectomy History of arthroscopy of knee Social History Social History Housing: House Alcohol intake: never Patient Tobacco Use Status: Never used Tobacco e-Cigarette/Vaping Use: Never Used Second Hand Smoke Exposure: Yes Use of substances other than those prescribed or required for medical reasons: No Are you DNR?: No Advance Directives: No Advance Directives Information Provided: Yes service: No Current 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 occupational exposures/hazards: No Cognitive needs: No Hearing needs: No Vision needs: Yes Meds Allergies Allergy/AdvReac Type Severity Reaction Status Date / Time chlorthalidone Allergy Mild RASH , Rash Verified 06/30/23 06:54 [CHLORTHALIDONE] zinc [ZINC] Allergy Mild RASH, Verified 06/30/23 06:54 TINGLING IN MOUTH, Rash Home Medications Medication Instructions Recorded Confirmed Last Taken Type vit C 250 mg-vit E 90 mg-zinc 40 1 tab PO BID 10/25/20 06/30/23 06/30/23 00:05 History mg-copper 1 [id number] capsule (PreserVision AREDS-2) finasteride 5 mg tablet 5 mg PO .every other day 01/07/23 06/25/23 Unknown History Exam Height,Weight and Vital Signs: Height 6 ft 3 in Weight 117.48 kg Pertinent Lab Results Pertinent Lab Results: Laboratory Tests 06/05/23 12:20 WBC 7.4 Hgb 15.0 Hct 44.7 Plt Count 257 Sodium 142 Potassium 4.7 Chloride 106 Carbon Dioxide 28 BUN 17 H Creatinine 0.90 Assessment and Plan Assessment Anesthesia Assessment: Chart Reviewed Documented by User: Cat Miranda MD 06/30/23 08:04 PMFSH Past Medical History Medical History Monoclonal gammopathy of unknown significance (MGUS) NARINDER positive Normal colonoscopy Heart murmur Osteoarthritis Hyperlipidemia Elevated PSA History of recurrent UTIs BPH (benign prostatic hyperplasia) Hypertension Family History Family History Father Lung cancer HTN (hypertension) Mother CVD (cardiovascular disease) Kidney disease Cancer Other Mental health disorder Substance use disorder Family history of problems with anesthesia: No Surgical History Surgical History H/O colonoscopy H/O vasectomy History of arthroscopy of knee History of Problems with Anesthesia: No Social History Social History Housing: House Alcohol intake: never Patient Tobacco Use Status: Never used Tobacco e-Cigarette/Vaping Use: Never Used Second Hand Smoke Exposure: Yes Use of substances other than those prescribed or required for medical reasons: No Are you DNR?: No Advance Directives: No Advance Directives Information Provided: Yes service: No Current 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 occupational exposures/hazards: No Cognitive needs: No Hearing needs: No Vision needs: Yes Meds Allergies Allergy/AdvReac Type Severity Reaction Status Date / Time chlorthalidone Allergy Mild RASH , Rash Verified 06/30/23 06:54 [CHLORTHALIDONE] zinc [ZINC] Allergy Mild RASH, Verified 06/30/23 06:54 TINGLING IN MOUTH, Rash Home Medications Medication Instructions Recorded Confirmed Last Taken Type vit C 250 mg-vit E 90 mg-zinc 40 1 tab PO BID 10/25/20 06/30/23 06/30/23 00:05 History mg-copper 1 uq-beqhya-evjqag capsule (PreserVision AREDS-2) finasteride 5 mg tablet 5 mg PO .every other day 01/07/23 06/25/23 Unknown History Exam Airway Mallampati Class: III (morbid obesity) TM Dist: >3cm Neck ROM: Full Heart: rrr Lungs: cta Assessment and Plan Assessment Anesthesia Assessment: Anesthesia Plan Discussed Final Anesthetic Review Family History of Problems with Anesthesia: No History of Problems with Anesthesia: No NPO: Yes ASA Class: III (vertigo, with head movement and positioning, ok when sitting up) Final Preanesthetic Review: No Changes in Pt Med Stat, Meds/Allgs Chart Reviewed, Consent Obtained/Reviewed and Anes Risks/Benef Reviewed Patient Risk: Intermediate Procedure Risk: Low Anesthetic Plan Anesthetic Plan: GA Disposition: Standard PACU
[2023-06-30 06:46] VITALS: BMI 33.2
[2023-06-30 06:59] VITALS: BP 155/84; PULSE 60; RESP 16; TEMP 36.8; O2SAT 95
[2023-06-30] MEDS: Lactated Ringers 1,000 ML 100 ML IVCONT (07:16)
--- NOTE | 2023-06-30 07:46 | MHC.SHP ---
Pre-Procedural Eval Section A Date of Service: 06/30/23 The patient is an INPATIENT: No Changes since office visit: No Cold of Flu in the past 2 weeks, No New Medical Problems, No Changes in Medication and No Patient answered all questions The History & Physical has been completed within 30 days and I have reviewed it.: No Section B Chief Complaint: Benign prostatic hyperplasia with lower urinary tr Details of Present Illness: Bladder stone Relevant Family History (Specify if Yes): No Relevant Social History: None Present Medications: see Short Stay Collaborative assessment Medical History: No relevant PMH History of Previous Operations: No relevant previous surgery Allergies: Allergies Allergy/AdvReac Type Severity Reaction Status Date / Time chlorthalidone Allergy Mild RASH , Rash Verified 06/30/23 06:54 [CHLORTHALIDONE] zinc [ZINC] Allergy Mild RASH, Verified 06/30/23 06:54 TINGLING IN MOUTH, Rash Review of Systems Sugical H&P ROS: Negative: Constitution, Cardiovascular, Respiratory, Neurological, Psychiatric, Hem-Onc, Allergic/Immunologic, Gastrointestinal, Genitourinary, Musculoskeletal, Integumentary, Endocrine and Eyes/Ears/Nose/Throat Exam Surgical H&P Exam: Normal: HEENT, Normal: Heart, Normal: Lungs, Normal: Extremities, Normal: Abdomen, Normal: Skin and Normal: Neurological Plan Diagnosis/Plan: Unchanged (cystoscopy with bladder stone laser) I have reviewed the history and physical and performed a pertinent physical examination on my patient. No changes have occurred unless specified. Time Spent With Patient Time: Total time managing care of this patient today ____ minutes.
[2023-06-30] MEDS: levoFLOXacin 500 MG TABLET PO (08:05)
--- NOTE | 2023-06-30 09:04 | W.PM.OPN ---
Operative Note Operative Note Date of Service: 06/30/23 Narrative: PreOperative Diagnosis: bladder stone Post Operative Diagnosis: greater than 2cm bladder stone Procedure: Cystoscopy with laser of bladder stone Surgeon: Dr Jamal Vital Anesthesia: LMA Indications for procedure: urinary urgency and frequency, ultrasound with 2 cm bladder stone Procedure: After informed consent was verified the patient was brought to the operating room and placed in a supine position. Anesthesia was administered per protocol. The patient was prepped and draped in a sterile fashion. Safety pause time-out was performed. Antibiotics being given. 24 [place] continuous-flow resectoscope was placed per urethra. Noted to have high-riding bladder neck. 2 cm bladder stone seen on entry to bladder. Inflamed bladder mucosa seen. Ureteric orifices normal position. Using the 940nm holmium laser fiber and laser settings to equal 30 w the stone was broken into small pieces and removed. No other pathology was detected during the procedure. He tolerated the procedure well and was extubated in operating room transferred in stable condition to recovery area total power used 150 KJ Pathology: stones Drains:
[2023-06-30 09:06] VITALS: BP 128/77; PULSE 62; RESP 14; TEMP 37.2; O2SAT 93
[2023-06-30 09:11] VITALS: BP 136/71; PULSE 64; RESP 14; O2SAT 95
[2023-06-30 09:16] VITALS: BP 131/75; PULSE 62; RESP 16; O2SAT 96
[2023-06-30] MEDS: Phenazopyridine HCL 100 MG TABLET PO (09:20)
[2023-06-30] MEDS: Acetaminophen 325 MG TABLET 975 MG PO (09:20)
[2023-06-30 09:21] VITALS: BP 128/66; PULSE 62; RESP 16; O2SAT 96
[2023-06-30 09:36] VITALS: BP 125/70; PULSE 59; RESP 16; TEMP 36.6; O2SAT 95
== END 2023-06-30 10:10 | disposition home or self-care (01) ==
PROVIDERS: PCP Nurse Practitioner Family; Visit Provider Urology
PROC: (CPT 52317; principal; 2023-06-30 08:20)
DX: N40.1 Benign prostatic hyperplasia with lower urinary tract symptoms (principal); R35.1 Nocturia; R39.15 Urgency of urination; R35.0 Frequency of micturition; N21.0 Calculus in bladder; I10 Essential (primary) hypertension; E78.5 Hyperlipidemia, unspecified; D47.2 Monoclonal gammopathy; Z79.899 Other long term (current) drug therapy; Z88.8 Allergy status to other drugs, medicaments and biological substances; Z98.52 Vasectomy status
CPT/HCPCS: 52317; 88300; J2704; J3010

== ENCOUNTER → 2023-06-30 06:06 | Outpatient (BNV) | payer MEDICARE, SELFPAY | PROVIDERS: PCP Nurse Practitioner Family; Visit Provider Urology | DX: N21.0 Calculus in bladder (principal) | CPT/HCPCS: 52317 ==

== ENCOUNTER → 2023-07-04 08:43 | Outpatient (BNVA) | payer MEDICARE, SELFPAY | PROVIDERS: PCP Nurse Practitioner Family; Visit Provider Urology | DX: N40.1 Benign prostatic hyperplasia with lower urinary tract symptoms (principal) | CPT/HCPCS: 51700; 51798 ==

== ENCOUNTER 2023-07-14 09:28 | Outpatient (AMB) | payer MEDICARE, SELFPAY ==
--- NOTE | 2023-07-14 10:51 | AM.OFFWIN_ITS ---
Intake Vital Signs 07/14/23 10:59 Height 6 ft 3 in Weight 273 lb BMI 34.1 BP 150/80 H Blood Pressure Location Lt brachial Position Sitting Pulse 63 Pulse Source Pulse Oximeter Pulse Oximetry (%) 96 Oxygen Delivery Method Room Air Intake Visit Reasons: EP Blister on Big toe/blister [id number] Intake Note: pt is here today for blister on big toe started friday Patient Tobacco Use Status: Never used Tobacco Allergies chlorthalidone [CHLORTHALIDONE] Allergy (Mild, Verified 07/14/23 11:23) RASH , Rash zinc [ZINC] Allergy (Mild, Verified 07/14/23 11:23) RASH, TINGLING IN MOUTH, Rash Medication List - Last Reconciled 07/14/23 by Diego Serna MD amlodipine 10 mg PO DAILY cholecalciferol (vitamin D3) (Vitamin D3) 50 mcg PO DAILY finasteride 5 mg PO .every other day lisinopril 40 mg PO DAILY metoprolol succinate ER 50 mg PO DAILY sildenafil 100 mg PO NEEDED PRN 20 days sulfamethoxazole-trimethoprim 400-80 mg (Bactrim) 1 tab PO DAILY Do you need a note to return to daycare/school/sports/work: No HPI EP Blister on Big toe/blister [id number] HPI Details 67-year-old male presents to the office for a sick visit. Over the weekend a large piece of wood fell on the left foot. The great toe his badly bruised. [facility] Medical History Monoclonal gammopathy of unknown significance (MGUS) NARINDER positive Normal colonoscopy Heart murmur Osteoarthritis Hyperlipidemia Elevated PSA History of recurrent UTIs BPH (benign prostatic hyperplasia) Hypertension Surgical History H/O colonoscopy H/O vasectomy History of arthroscopy of knee Family History Father Lung cancer HTN (hypertension) Mother CVD (cardiovascular disease) Kidney disease Cancer Other Mental health disorder Substance use disorder Social History Housing: House Alcohol intake: never Patient Tobacco Use Status: Never used Tobacco e-Cigarette/Vaping Use: Never Used Second Hand Smoke Exposure: Yes service: No Current 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 Office Procedures I&D Drain Details: Area cleaned with betadine and using a sterile needle the heamatoma was evacuated. [id number] of Hematoma/Fluid (Left foot) All charges added?: Additional procedure code (CPT) needed Assessment & Plan Assessment & Plan (1) Contusion, foot: Code(s): S90.30XA - Contusion of unspecified foot, initial encounter Plan: X-ray images were personally reviewed by me. Nondisplaced fracture of the distal phalanx of the left foot.. Dressing was applied to covered the hematoma on the left foot. Boot given. Ortho appointment was given for appropriate splinting. Orders: Orders AMB Incision & Drainage Today S90.30XA - Contusion of unspecified foot, initial encounter XR foot LT 2V Today S90.30XA - Contusion of unspecified foot, initial encounter Referrals Orthopedics Referral S90.30XA - Contusion of unspecified foot, initial encounter Coding Level of Care Code Est Pt Level 4 (40447) Diagnoses Contusion, foot S90.30XA CPT Codes I&D Drain - Drain 5: [id number] of Hematoma/Fluid ([id number])
[2023-07-14 10:59] VITALS: BP 150/80; PULSE 63; O2SAT 96; BMI 34.1
== END 2023-07-14 13:38 | disposition home or self-care (01) ==
PROVIDERS: PCP Nurse Practitioner Family; Visit Provider Internal Medicine
DX: S90.32XA Contusion of left foot, initial encounter (principal)
CPT/HCPCS: 10140; 99214

== ENCOUNTER 2023-07-14 11:21 | Outpatient (REF) | payer MEDICARE, SELFPAY ==
--- NOTE | ~2023-07-14 | XR_ITS ---
EXAMINATION: XR FOOT, LEFT CLINICAL INFORMATION: Left foot contusion. COMPARISON: None available. TECHNIQUE: AP, lateral, and oblique views of the left foot. FINDINGS: Oblique, linear lucency through the medial aspect of the 1st distal phalanx which likely represents an oblique, nondisplaced fracture. Correlate for focal tenderness. Mild joint space narrowing with small marginal osteophytes at the tibiotalar joint. No concerning lytic or blastic osseous lesion. Prominent plantar calcaneal enthesophyte. Atherosclerotic calcifications. XR/XR foot LT 2V IMPRESSION: 1. Oblique, nondisplaced fracture through the medial aspect of the 1st distal phalanx. Correlate for focal tenderness. 2. 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
== END 2023-07-14 11:22 | disposition home or self-care (01) ==
LOC: HO.HMGCX 11:21
PROVIDERS: PCP Nurse Practitioner Family; Visit Provider Internal Medicine
DX: S90.32XA Contusion of left foot, initial encounter (principal)
CPT/HCPCS: 73620

== ENCOUNTER 2023-07-21 09:24 | Outpatient (AMB) | payer MEDICARE, SELFPAY ==
--- NOTE | 2023-07-21 09:30 | MHC.OFFVIS ---
Intake Vital Signs 07/21/23 09:33 Height 6 ft 3 in Weight 273 lb BMI 34.1 Intake Visit Reasons: fc- Contusion, left foot Intake Note: Shaka titus 68 year old male presents today as a new patient for an evaluation of left foot, DOI 07/12/23. Patient reports that he dropped a piece of wood on his foot, injuring his big toe and bruising his 2nd toe. He was seen [place] [facility] [place] where his blister was drained and placed in a post op shoe. Currently complains of some discomfort with walking. States blister continues to have a little drainage. Allergies chlorthalidone [CHLORTHALIDONE] Allergy (Mild, Verified 07/21/23 09:35) RASH , Rash zinc [ZINC] Allergy (Mild, Verified 07/21/23 09:35) RASH, TINGLING IN MOUTH, Rash HPI fc- Contusion, left foot HPI Details 68-year-old male who presents to the office today for evaluation of left foot injury s/p dropping a piece of wood on his foot, injuring his big toe and bruising his 2nd toe, 07/12/23. He was seen at walk-in clinic where his blister was drained and he was placed in a post op shoe. He currently states he has mild discomfort in his foot with walking as well as his blister continues to have some drainage. He has tried cortisone injection in the past with no relief. [facility] Medical History Monoclonal gammopathy of unknown significance (MGUS) NARINDER positive Normal colonoscopy Heart murmur Osteoarthritis Hyperlipidemia Elevated PSA History of recurrent UTIs BPH (benign prostatic hyperplasia) Hypertension Surgical History H/O colonoscopy H/O vasectomy History of arthroscopy of knee Family History Father Lung cancer HTN (hypertension) Mother CVD (cardiovascular disease) Kidney disease Cancer Other Mental health disorder Substance use disorder Social History Housing: House Alcohol intake: never Patient Tobacco Use Status: Never used Tobacco e-Cigarette/Vaping Use: Never Used Second Hand Smoke Exposure: Yes service: No Current 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 There is tenderness to palpation over distal end of the great toe and faint bruising over the 2nd toe. NVI. Office Procedures Fracture Care Fracture Billing Code: Fracture Billing Code Results Reviewed Results Reviewed: X-rays of the left foot obtained at ED on 07/14/23 show a nondisplaced fracture through the 1st distal phalanx of the great toe. Assessment & Plan Assessment & Plan (1) Toe fracture, right: Code(s): S92.911A - Unspecified fracture of right toe(s), initial encounter for closed fracture Qualifiers: Encounter type: initial encounter Toe: unspecified toe Fracture type: closed Fracture alignment: nondisplaced Qualified Code(s): S92.911A - Unspecified fracture of right toe(s), initial encounter for closed fracture Plan He was fit a for a short toe in the office today and he will weight bearing as tolerated. I did explain that this will heal on its own without any surgical intervention. As far as wearing regular street shoe, he can transition based on his tolerance and pain level. He can increase activity as tolerated. I did educate him that it usually takes about 6-8 weeks before he can perform activities without discomfort and 12 weeks before his fracture is strong. If symptoms persist or worsens, patient will contact the office, otherwise follow-up as needed. Patient Instructions: Scribed for Alyx Madison PA-C, by Jose Alvarez biomedical scientist, on 07/21/2023 at 9:45 AM EST. I, Alyx Madison PA-C, have personally reviewed and agree with the information entered by the scribe. Coding Level of Care Code New Pt Level 3 (43169) Diagnoses Closed nondisplaced fracture of phalanx of toe of right foot, unspecified toe, initial encounter S92.911A Encounter type: initial encounter Toe: unspecified toe Fracture type: closed Fracture alignment: nondisplaced CPT Codes Fracture Care - Fracture Billing Code: Fracture Billing Code ([id number])
[2023-07-21 09:33] VITALS: BMI 34.1
== END 2023-07-21 09:57 | disposition home or self-care (01) ==
PROVIDERS: PCP Nurse Practitioner Family; Visit Provider Physician Assistant
DX: S92.911A Unspecified fracture of right toe(s), initial encounter for closed fracture (principal); W20.8XXA Other cause of strike by thrown, projected or falling object, initial encounter
CPT/HCPCS: 99203

== ENCOUNTER → 2023-07-21 09:24 | Outpatient (BNVA) | payer MEDICARE, SELFPAY | PROVIDERS: PCP Nurse Practitioner Family; Visit Provider Physician Assistant | DX: S92.911A Unspecified fracture of right toe(s), initial encounter for closed fracture (principal) | CPT/HCPCS: 99202 ==

== ENCOUNTER 2023-07-24 08:26 | Outpatient (AMB) | payer MEDICARE, SELFPAY ==
--- NOTE | 2023-07-24 08:26 | A.OFFVIS_ITS ---
Intake Intake Visit Reasons: Post-Op (Bladder Stone removal) Intake Note: Patient presents today for a follow-up Meds- Finasteride, Sildenafil Allergies to Antibiotic- No Known Allergies Blood Thinner- None Allergies chlorthalidone [CHLORTHALIDONE] Allergy (Mild, Verified 07/24/23 08:28) RASH , Rash zinc [ZINC] Allergy (Mild, Verified 07/24/23 08:28) RASH, TINGLING IN MOUTH, Rash HPI HPI Comments History of Present Illness Details Shaka is a pleasant male. He is a patient of Dr. Alvaro moore. He is seen for the following urologic conditions - lower urinary tract symptoms - elevated PSA - erectile dysfunction - bladder stone Telemedicine Evaluation 15 min Consultation [employer] Regine Video attempted Significant improvement following stone Procedure States 90% improvement in symptoms Will continue with finasteride and review in 6 months Understands that laser procedure on prostate may be likely in future Bladder Stone Imaging - 05/08 There is a mobile echogenic ston e measuring 2.1 x 1.0 x 2.0 cm in the dependent portion. Bilateral ureteral jets are demonstrated. Prevoid bladder volume is 194 mL. Postvoid bladder volume is 104 mL. Prostate volume measures 57 mL. Elevated PSA/Abnormal MARY: Continue with finasteride PSA dropped appropriately to 50% initial value He presents for further evaluation of elevated PSA. Current management is observation. Laboratory investigations include 04/03 , a total PSA evaluation 5.4 - PSA 08/05 3.1, 03/05 3.1, 06/05 2.7, 06/06 2.0, 05/08 2.5 Therapeutic plan will be continue with finasteride and review in 12 months [facility] Medical History Monoclonal gammopathy of unknown significance (MGUS) NARINDER positive Normal colonoscopy Heart murmur Osteoarthritis Hyperlipidemia Elevated PSA History of recurrent UTIs BPH (benign prostatic hyperplasia) Hypertension Surgical History H/O colonoscopy H/O vasectomy History of arthroscopy of knee Family History Father Lung cancer HTN (hypertension) Mother CVD (cardiovascular disease) Kidney disease Cancer Other Mental health disorder Substance use disorder Social History Housing: House Alcohol intake: never Patient Tobacco Use Status: Never used Tobacco e-Cigarette/Vaping Use: Never Used Second Hand Smoke Exposure: Yes service: No Current 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 occupational exposures/hazards: No Cognitive needs: No Hearing needs: No Vision needs: Yes Review of Systems Const All systems reviewed & are unremarkable except as noted in HPI and below Reports no additional complaints Resp Reports no additional complaints GI Reports no additional complaints Reports as per HPI Musc Reports no additional complaints Physical Exam Telemedicine evaluation Appropriate responses Regular breathing rate and rhythm HEENT Head: Yes normal to inspection Ears: hearing grossly normal bilaterally Eyes General: appearance normal, both eyes and all related structures Neck Neck: Yes normal visual inspection Chest Chest palpation & inspection: normal inspection of the chest Resp Effort & Inspection: normal respiratory effort and able to speak in complete sentences Assessment & Plan Assessment & Plan (1) BPH loc w urin obs/LUTS: Code(s): N40.1 - Benign prostatic hyperplasia with lower urinary tract symptoms (2) Elevated PSA: Code(s): R97.20 - Elevated prostate specific antigen [PSA] Plan 6m f/u PVR Patient Instructions: Imaging studies, laboratory and physical exam results were discussed and reviewed in detail. No major barriers to patient understanding were identified. An opportunity to ask questions regarding the treatment plan was provided. All questions were answered. The patient expressed understanding and agreement with the above treatment plan. The patient is aware they should contact our office by phone for worsening of their current condition or the appearance of new urologic symptoms. Compliance is encouraged with any medications and followup testing that is ordered. It is a privilege to participate in the urologic care of your patient. If you have any questions or concerns regarding treatment for the above conditions, or other urologic issues, please do not hesitate to contact me. The office telephone contact is [phone]. This note is constructed using voice recognition software. While every effort has been made to ensure accuracy medical billing instructor errors may have been included. Yours sincerely, Dr Jamal Vital MD, [facility] Providers of Expert, Compassionate Care for the Genitourinary System Telehealth Telehealth Location of provider rendering services: practice address Location of patient: address on file Patient Identification confirmed using: Name, : Yes Telehealth method: voice only Patient verbally consented to treatment: Yes Patient verbally consented to billing insurance company: Yes Patient informed of any privacy concerns related to visit: Yes Coding Level of Care Code Tele Est Pt Level 3 (99297) Diagnoses BPH loc w urin obs/LUTS N40.1 Elevated PSA R97.20
== END 2023-07-24 09:43 | disposition home or self-care (01) ==
LOC: HO.HUSH 08:26
PROVIDERS: PCP Nurse Practitioner Family; Visit Provider Urology
DX: N40.1 Benign prostatic hyperplasia with lower urinary tract symptoms (principal); R97.20 Elevated prostate specific antigen [PSA]
CPT/HCPCS: 99442

== ENCOUNTER → 2023-07-24 08:26 | Outpatient (BNVA) | payer MEDICARE, SELFPAY | PROVIDERS: PCP Nurse Practitioner Family; Visit Provider Urology ==

== ENCOUNTER 2023-08-19 08:13 | Outpatient (AMB) | payer MEDICARE, SELFPAY ==
--- NOTE | 2023-08-19 08:17 | MHC.OFFVIS ---
Intake Vital Signs 08/19/23 08:35 Height 6 ft 3 in Weight 268 lb 15.423 oz BMI 33.6 BP 141/74 H Blood Pressure Location Lt brachial Position Sitting Pulse 67 Intake Visit Reasons: 6 month follow up Intake Note: Patient presents to in office visit today in 6 months follow up of elevated alkaline phosphate level. CC: Patient denies having any GI symptoms or concerns today. He reports he had a fractured toe and underwent cystoscopy back in [facility].. Leader Writer Required: No Accompanied by: Self / Same As Patient Allergies chlorthalidone [CHLORTHALIDONE] Allergy (Mild, Verified 08/19/23 08:47) RASH , Rash zinc [ZINC] Allergy (Mild, Verified 08/19/23 08:47) RASH, TINGLING IN MOUTH, Rash HPI 6 month follow up HPI Details Assessment & Plan (1) Gallstones: Code(s): K80.20 - Calculus of gallbladder without cholecystitis without obstruction Plan: He is asymptomatic with regards to the the gallstones. Will repeat labs, (adding chol panel for his PCP ad favor). Reviewed alarm sg/sx. He is originally sent here because of concerns of elevated bilirubin alk-phos but since he is asymptomatic I think this is mostly Gilbert's syndrome syndrome. Again, he consult to General surgery and they did not feel cholecystectomy was appropriate. Given his lack of symptoms I do not think he needs Creon. His only new diagnosis is MGUS. He continues to go to [place] to visit grand daughter! ROV 6 mos. At the next appointment we should again discussed possible repeat colonoscopy since he has a family history of colon cancer any put office 2019 procedure because of an insurance lapse. He is now on Medicare. (2) Elevated alkaline phosphatase level: Code(s): R74.8 - Abnormal levels of other serum enzymes (3) Elevated bilirubin: Code(s): R17 - Unspecified jaundice (4) High cholesterol: Code(s): E78.00 - Pure hypercholesterolemia, unspecified Orders: Orders Comprehensive Met. Panel Today E78.00 - Pure hype rcholesterolemia, unspecified, R17 - Unspecified jaund ice, R74.8 - Abnor mal levels of othe r serum enzymes Lipid Panel Today E78.00 - Pure hype rcholesterolemia, unspecified, R17 - Unspecified jaund ice, R74.8 - Abnor mal levels of othe r serum enzymes Bilirubin Direct Today E78.00 - Pure hype rcholesterolemia, unspecified, R17 - Unspecified jaund ice, R74.8 - Abnor mal levels of othe r serum enzymes TSH reflex Free T4 Today E78.00 - Pure hype rcholesterolemia, unspecified, R17 - Unspecified jaund ice, R74.8 - Abnor mal levels of othe r serum enzymes Labs: Laboratory Tests 01/08/23 01/08/23 06/05/23 08:11 08:11 12:20 Estimated GFR > 60 Total Bilirubin 1.7 H 2.0 H Direct Bilirubin 0.5 AST 21 20 ALT 22 17 Alkaline Phosphata se 118 H 130 H TSH 1.03 TODAY'S VISIT. He just returned from [place] where he sees his grand daughter. He is gained some weight due to inactivity, mostly because he dropped a 4 x 4 on his toe and fractured it! On the good side he did have lithotripsy to remove a very large bladder stone and this has cure all of his urinary problems that really were impairing his quality of life. His alk-phos and his bilirubin a creeping up. I believe this is because he has multiple mobile gallstones. We again discussed possible alarm signs and symptoms that would necessitate an ER presentation, and he also was counseled to avoid fatty and fried foods as much as possible as this could trigger gallbladder attack. Will get some labs to check and see where he is at especially since he just returned from [place] where he admits he was not eating so well because there eating out at restaurants quite a lot. Return office visit in 6 months. [facility] Medical History Monoclonal gammopathy of unknown significance (MGUS) NARINDER positive Normal colonoscopy Heart murmur Osteoarthritis Hyperlipidemia Elevated PSA History of recurrent UTIs BPH (benign prostatic hyperplasia) Hypertension Surgical History H/O colonoscopy H/O vasectomy History of arthroscopy of knee Family History Father Lung cancer HTN (hypertension) Mother CVD (cardiovascular disease) Kidney disease Cancer Other Mental health disorder Substance use disorder Social History Housing: House Alcohol intake: never Patient Tobacco Use Status: Never used Tobacco e-Cigarette/Vaping Use: Never Used Second Hand Smoke Exposure: Yes service: No Current 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 occupational exposures/hazards: No Cognitive needs: No Hearing needs: No Vision needs: Yes Review of Systems Const Denies fatigue, Denies fever(s), Denies night sweats, Denies poor appetite and Denies weight loss Eyes Details: glasses Reports requires corrective lenses ENT Reports Normal hearing present, Denies dental pain, Denies dysphagia, Denies hearing loss, Denies mouth pain, Denies odynophagia, Denies throat swelling, Denies tongue swelling and Reports other (Dentition adequate) Card Reports no additional complaints Resp Reports no additional complaints GI Details: Denies abdominal pain, Denies melena, Denies bloating, Denies hematochezia, Denies constipation, Denies GI cramping, Denies dysphagia, Denies excessive flatus, Denies early satiety, Denies heartburn, Denies diarrhea, Denies nausea, Denies odynophagia, Denies vomiting and Denies hematemesis Skin/Breast Denies pruritus, Denies lesions, Denies rash and Denies jaundice Neuro Reports Normal hearing present and Denies Abnormal speech present Endo Denies fatigue Aller/Immun Denies throat swelling and Denies tongue swelling Physical Exam Vital Signs: Last Vital Signs Pulse 67 08/19/23 08:35 BP 141/74 H 08/19/23 08:35 BMI result Body Mass Index 33.6 Const General: cooperative, no acute distress, well developed and well groomed Nutritional Appearance: well nourished and obese Orientation/consciousness: oriented to person, oriented to place and oriented to time Limitations: No language barrier HEENT Head: Yes normocephalic and Yes atraumatic Eyes General: appearance normal, both eyes and all related structures Pupils: Equal, round and reactive pupils present Neck Neck: Yes normal visual inspection and Yes no lymphadenopathy Thyroid: Thyroid normal Resp Effort & Inspection: normal respiratory effort and able to speak in complete sentences Auscultation: clear to auscultation bilaterally Cardio Rate: regular rate Rhythm: regular rhythm Heart sounds: Normal, physiologic split S2 sound present Peripheral pulses: radial pulses present and posterior tibial pulses present GI Inspection: No distended, No Abdominal panniculus present and Yes obesity Palpation (GI): Soft to palpation, nontender, no guarding, not rigid and No hepatosplenomegaly present Percussion: Yes normal to percussion Auscultation: normal bowel sounds Rectal Exam - Male: Yes deferred Skin General skin exam: no rashes or lesions noted, turgor normal, skin not dry, no jaundice, No spider nevi and no striae Rashes: no rashes Nails: normal Neuro General: oriented to person, oriented to place and oriented to time Cranial nerves: Yes Equal, round and reactive pupils present and Yes Normal hearing present Speech: No Abnormal speech present Extrem General: Yes normal to inspection, No clubbing, No cyanosis and No edema Psych Appearance: grossly normal and well kempt Mental Status: mental status grossly normal Speech and movement: Normal speech and movement present Affect: normal affect Attitude: cooperative Thought process: Normal thought process present and not confabulating Thought content: Normal thought content present Insight: Fair insight present (Psych) Judgement: Fair judgement present (Psych) Results Reviewed Results Reviewed: Laboratory Tests 01/08/23 01/08/23 06/05/23 08:11 08:11 12:20 Estimated GFR > 60 Total Bilirubin 1.7 H 2.0 H Direct Bilirubin 0.5 AST 21 20 ALT 22 17 Alkaline Phosphatase 118 H 130 H TSH 1.03 Assessment & Plan Assessment & Plan (1) Gallstones: Code(s): K80.20 - Calculus of gallbladder without cholecystitis without obstruction (2) Elevated alkaline phosphatase level: Code(s): R74.8 - Abnormal levels of other serum enzymes (3) Elevated bilirubin: Code(s): R17 - Unspecified jaundice Plan He just returned from [place] where he sees his grand daughter. He is gained some weight due to inactivity, mostly because he dropped a 4 x 4 on his toe and fractured it! On the good side he did have lithotripsy to remove a very large bladder stone and this has cure all of his urinary problems that really were impairing his quality of life. His alk-phos and his bilirubin a creeping up. I believe this is because he has multiple mobile gallstones. We again discussed possible alarm signs and symptoms that would necessitate an ER presentation, and he also was counseled to avoid fatty and fried foods as much as possible as this could trigger gallbladder attack. Will get some labs to check and see where he is at especially since he just returned from [place] where he admits he was not eating so well because there eating out at restaurants quite a lot. Return office visit in 6 months. Orders: Orders Mitochondrial Antibody Today R17 - Unspecified jaundice, R74.8 - Abnormal levels of other serum enzymes US abdomen complete Today K80.20 - Calculus of gallbladder without cholecystitis without obstruction, R17 - Unspecified jaundice, R74.8 - Abnormal levels of other serum enzymes Liver Panel Today R17 - Unspecified jaundice, R74.8 - Abnormal levels of other serum enzymes Coding Level of Care Code Est Pt Level 3 (91629) Diagnoses Gallstones K80.20 Elevated alkaline phosphatase level R74.8 Elevated bilirubin R17
[2023-08-19 08:35] VITALS: BP 141/74; PULSE 67; BMI 33.6
== END 2023-08-19 08:59 | disposition home or self-care (01) ==
PROVIDERS: PCP Nurse Practitioner Family; Visit Provider Nurse Practitioner
DX: K80.20 Calculus of gallbladder without cholecystitis without obstruction (principal); R74.8 Abnormal levels of other serum enzymes; R17 Unspecified jaundice
CPT/HCPCS: 99213

== ENCOUNTER 2023-08-19 08:13 | Outpatient (REF) | payer MEDICARE, SELFPAY ==
[2023-08-19 10:06] LABS: Alanine Aminotransferase 14 U/L (0-40); Albumin Level 4.3 g/dL (3.5-5.0); Alkaline Phosphatase 144 U/L (39-117); Aspartate Amino Transferase 18 U/L (5-37); Bilirubin Direct 0.3 mg/dL (0.0-0.5); Bilirubin Total 1.6 mg/dL (0.0-1.0); Total Protein 6.9 g/dL (6.5-8.0)
[2023-08-21 16:14] LABS: Mitochondrial Antibodies NEGATIVE (NEGATIVE)
== END 2023-08-19 08:14 | disposition home or self-care (01) ==
LOC: HO.LAB 08:13
PROVIDERS: PCP Nurse Practitioner Family; Visit Provider Nurse Practitioner
DX: R17 Unspecified jaundice (principal); R74.8 Abnormal levels of other serum enzymes; E78.00 Pure hypercholesterolemia, unspecified; R63.5 Abnormal weight gain; K80.20 Calculus of gallbladder without cholecystitis without obstruction
CPT/HCPCS: 36415; 80076; 86381; 99212

== ENCOUNTER 2023-08-20 06:32 | Outpatient (REF) | payer MEDICARE, SELFPAY ==
--- NOTE | ~2023-08-20 | XR_ITS ---
EXAMINATION: 1. RADIOGRAPHS STANDING BILATERAL KNEES 2. RADIOGRAPHS RIGHT KNEE 3. RADIOGRAPHS LEFT KNEE CLINICAL INFORMATION: Bilateral knee pain COMPARISON: None TECHNIQUE: Standing AP views of both knees were obtained in addition to lateral and patellar sunrise views of both knees. FINDINGS: Right knee: No fracture or dislocation. Trace suprapatellar joint effusion. Moderate to severe narrowing of the medial joint space height. Small tricompartmental marginal osteophytes. No localized soft tissue swelling of the anterior knee. Mild vascular calcifications. Left knee: No fracture or dislocation. No suprapatellar joint effusion. Moderate narrowing of the medial joint space height. Tiny tricompartmental marginal osteophytes. No localized soft tissue swelling of the anterior knee. Minimal vascular calcifications. XR/XR knee RT 2V IMPRESSION: Moderate degenerative changes of both knees, right greater than left.
--- NOTE | ~2023-08-20 | XR_ITS ---
EXAMINATION: 1. RADIOGRAPHS STANDING BILATERAL KNEES 2. RADIOGRAPHS RIGHT KNEE 3. RADIOGRAPHS LEFT KNEE CLINICAL INFORMATION: Bilateral knee pain COMPARISON: None TECHNIQUE: Standing AP views of both knees were obtained in addition to lateral and patellar sunrise views of both knees. FINDINGS: Right knee: No fracture or dislocation. Trace suprapatellar joint effusion. Moderate to severe narrowing of the medial joint space height. Small tricompartmental marginal osteophytes. No localized soft tissue swelling of the anterior knee. Mild vascular calcifications. Left knee: No fracture or dislocation. No suprapatellar joint effusion. Moderate narrowing of the medial joint space height. Tiny tricompartmental marginal osteophytes. No localized soft tissue swelling of the anterior knee. Minimal vascular calcifications. XR/XR knee standing BI IMPRESSION: Moderate degenerative changes of both knees, right greater than left.
--- NOTE | ~2023-08-20 | XR_ITS ---
EXAMINATION: 1. RADIOGRAPHS STANDING BILATERAL KNEES 2. RADIOGRAPHS RIGHT KNEE 3. RADIOGRAPHS LEFT KNEE CLINICAL INFORMATION: Bilateral knee pain COMPARISON: None TECHNIQUE: Standing AP views of both knees were obtained in addition to lateral and patellar sunrise views of both knees. FINDINGS: Right knee: No fracture or dislocation. Trace suprapatellar joint effusion. Moderate to severe narrowing of the medial joint space height. Small tricompartmental marginal osteophytes. No localized soft tissue swelling of the anterior knee. Mild vascular calcifications. Left knee: No fracture or dislocation. No suprapatellar joint effusion. Moderate narrowing of the medial joint space height. Tiny tricompartmental marginal osteophytes. No localized soft tissue swelling of the anterior knee. Minimal vascular calcifications. XR/XR knee LT 2V IMPRESSION: Moderate degenerative changes of both knees, right greater than left.
== END 2023-08-20 06:33 | disposition home or self-care (01) ==
LOC: HO.HOSX 06:32
PROVIDERS: Visit Provider Physician Assistant
DX: M17.0 Bilateral primary osteoarthritis of knee (principal); Z79.899 Other long term (current) drug therapy
CPT/HCPCS: 20610; 73560; 73565; 99212; J1040

== ENCOUNTER 2023-08-20 10:01 | Outpatient (AMB) | payer MEDICARE, SELFPAY ==
--- NOTE | 2023-08-20 10:16 | MHC.OFFVIS ---
Intake Vital Signs 08/20/23 10:17 Height 6 ft 3 in Weight 268 lb BMI 33.5 Intake Visit Reasons: Newprob-B/L knee pain/arthritis Intake Note: Shaka a 68 year old male presents today for an evaluation of bilateral knee pain. Patient reports his right knee is currently worse. States he has hx of O.A in knees for 10-15 years. Hx of last arthroscopic surgery in 2014 and 2004. Currently his knee locks when walking up or down stairs. Pain when walking on an incline. He has tried cortisone injection in with no help. Allergies chlorthalidone [CHLORTHALIDONE] Allergy (Mild, Verified 08/20/23 10:22) RASH , Rash zinc [ZINC] Allergy (Mild, Verified 08/20/23 10:22) RASH, TINGLING IN MOUTH, Rash Medication List - Last Reconciled 08/20/23 by Alyx Madison PA-C amlodipine 10 mg PO DAILY cholecalciferol (vitamin D3) (Vitamin D3) 50 mcg PO DAILY finasteride 5 mg PO .every other day lisinopril 40 mg PO DAILY metoprolol succinate ER 50 mg PO DAILY sildenafil 100 mg PO NEEDED PRN 20 days HPI Newprob-B/L knee pain/arthritis HPI Details 68-year-old male who presents to the office today for evaluation of bilateral knee pain. He was seen at [facility] in the past for his knee pain. He currently states he has pain in his bilateral knee which is worse on his right knee. His pain is aggravated with walking on an incline and he also c/o locking and cracking with stair use. He has tried cortisone injection on with no relief. He has a history of bilateral knee OA for 10-15 years. He also had his last arthroscopic surgery in 2014 and 2004. He does not have a history of diabetes. He is currently retired. [facility] Medical History Monoclonal gammopathy of unknown significance (MGUS) NARINDER positive Normal colonoscopy Heart murmur Osteoarthritis Hyperlipidemia Elevated PSA History of recurrent UTIs BPH (benign prostatic hyperplasia) Hypertension Surgical History H/O colonoscopy H/O vasectomy History of arthroscopy of knee Family History Father Lung cancer HTN (hypertension) Mother CVD (cardiovascular disease) Kidney disease Cancer Other Mental health disorder Substance use disorder Social History (Updated 08/20/23 @ 10:22 by Tamra Vicente [facility]) Housing: House Alcohol intake: never Patient Tobacco Use Status: Never used Tobacco e-Cigarette/Vaping Use: Never Used Second Hand Smoke Exposure: Yes service: No 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 No tenderness along the medial or lateral joint line. Full ROM with crepitus. Negative Reynaldo?s. No ligamentous laxity. NVI. Right knee: Skin intact, no erythema or joint effusion. Tenderness along the medial joint line. Full ROM with crepitus. Negative Reynaldo?s. No ligamentous laxity. NVI. Office Procedures Joint Injection/Drain Joint Injection/Drain Primary Site: right knee Prep: site was prepped using aseptic technique, ethochloride spray was applied and injection warnings given Injected: 80 mg of, DepoMedrol, with 8 mL of, 1% plain lidocaine and in the joint Approach Used: anterolateral Procedure: The patient tolerated the procedure well and there was some relief with the local anesthesia Coding 52623 - Glenohumeral/Tronchanteric Bursa/Intraarticular Procedure code (CPT) selection complete Assessment & Plan Assessment & Plan (1) Osteoarthritis of knees, bilateral: Code(s): M17.0 - Bilateral primary osteoarthritis of knee Qualifiers: Osteoarthritis type: primary Qualified Code(s): M17.0 - Bilateral primary osteoarthritis of knee Plan We discussed options today which include steroid injection. They did consent to move forward with the right knee injection, which was tolerated well. I recommended rest, ice and elevation and OTC anti-inflammatories PRN for discomfort. We will also obtain a prior authorization for gel injection on bilateral knees. If symptoms persist or worsens over the next 6-8 weeks, patient will contact the office, otherwise follow-up as needed. Orders: Orders XR knee standing BI 08/20/23 M25.561 - Pain in right knee, M25.562 - Pain in left knee XR knee RT 2V 08/20/23 M25.569 - Pain in unspecified knee XR knee LT 2V 08/20/23 M25.562 - Pain in left knee Patient Instructions: Scribed for Alyx Madison PA-C, by Jose Alvarez medical registrar, on 08/20/2023 at 10:15 AM RICKIE. Alyx De La Cruz PA-C, have personally reviewed and agree with the information entered by the scribe. Coding Level of Care Code Est Pt Level 3 (34625) Diagnoses Primary osteoarthritis of both knees M17.0 Osteoarthritis type: primary CPT Codes Coding - Joint 7: 52857 - Glenohumeral/Tronchanteric Bursa/Intraarticular ([id number])
[2023-08-20 10:17] VITALS: BMI 33.5
== END 2023-08-20 11:10 | disposition home or self-care (01) ==
PROVIDERS: PCP Nurse Practitioner Family; Visit Provider Physician Assistant
DX: M17.0 Bilateral primary osteoarthritis of knee (principal)
CPT/HCPCS: 20610; 99213

== ENCOUNTER 2023-08-28 09:42 | Outpatient (REF) | payer MEDICARE, SELFPAY ==
--- NOTE | ~2023-08-28 | US_ITS ---
EXAMINATION: US ABDOMEN COMPLETE CLINICAL INFORMATION: Calculus of gallbladder without cholecystitis without obstruction. COMPARISON: Ultrasound kidneys and bladder 02/14/2023. Ultrasound abdomen complete 07/05/2021. TECHNIQUE: Real-time imaging of the abdominal viscera. Limited visualization due to bowel gas. FINDINGS: PANCREAS: Limited visualization of pancreatic tail and head. Imaged portion of pancreatic body is unremarkable. ABDOMINAL AORTA: Limited visualization. INFERIOR VENA CAVA: Visualized portions are normal. LIVER: Increased hepatic parenchymal heterogeneity and echogenicity could be associated with hepatocellular disease/hepatic steatosis and severely limits visualization. Correlation with liver function tests and clinical exam recommended to determine further management. GALLBLADDER: Borderline gallbladder wall thickening 0.33 cm. Cholelithiasis. COMMON BILE DUCT: Normal in caliber measuring 0.5 cm in diameter. RIGHT KIDNEY: No hydronephrosis. No renal calculi. Renal cortical thickness is normal. Redemonstration of 1.4 cm and 3.5 cm mid pole right renal cysts. There is no indication for additional imaging at this time. The kidney measures 11.5 cm in maximum dimension. LEFT KIDNEY: No hydronephrosis. No renal calculi. Limited visualization. Redemonstration of 2.2 cm lower pole cyst. There is no indication for additional imaging. A 2.4 cm upper pole cyst. The kidney measures 11.5 cm in maximum dimension. SPLEEN: Normal. The spleen measures 10.9 cm in maximum dimension. FREE FLUID: None. US/US abdomen complete IMPRESSION: 1 Increased hepatic parenchymal heterogeneity and echogenicity could be associated with hepatocellular disease/hepatic steatosis and severely limits visualization. Correlation with liver function tests and clinical exam recommended to determine further management. 2. Borderline gallbladder wall thickening 0.33 cm. Cholelithiasis.
== END 2023-08-28 09:43 | disposition home or self-care (01) ==
LOC: HO.HMGCX 09:42
PROVIDERS: PCP Nurse Practitioner Family; Visit Provider Nurse Practitioner
DX: K80.20 Calculus of gallbladder without cholecystitis without obstruction (principal); R17 Unspecified jaundice; R74.8 Abnormal levels of other serum enzymes
CPT/HCPCS: 76700

== ENCOUNTER 2023-09-03 09:13 | Outpatient (AMB) | payer MEDICARE, SELFPAY ==
[2023-09-03 09:15] VITALS: BP 150/80; PULSE 68; O2SAT 97; BMI 33.7
--- NOTE | 2023-09-03 09:15 | MHC.PC.OV ---
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 Chipper Required: No Accompanied by: Self / Same As Patient Allergies chlorthalidone [CHLORTHALIDONE] Allergy (Mild, Verified 09/03/23 09:54) RASH , Rash zinc [ZINC] Allergy (Mild, Verified 09/03/23 09:54) RASH, TINGLING IN MOUTH, Rash Medication List - Last Reconciled 09/03/23 by FELICITAS Hunt- amlodipine 10 mg PO DAILY cholecalciferol (vitamin D3) (Vitamin D3) 50 mcg PO DAILY finasteride 5 mg PO .every other day lisinopril 40 mg PO DAILY metoprolol succinate ER 50 mg PO DAILY sildenafil 100 mg PO NEEDED PRN 20 days Tobacco use date assessed: 09/03/23 Fall risk assessment: No Falls in past year Last assessed Fall Risk: 09/03/23 Dental Screening Dental Screen Date: 09/03/23 Did you have a dental visit in the last 12 months?: Yes Did you have a dental problem in the last 6 months where you did not have access to dental care?: No Was dental information given to patient?: Patient has dentist HPI 6M FU, rescheduled from 08/11/23 HPI Details HTN: Blood pressure is managed with amlodipine 10mg, lisinopril 40mg, and metopolol 50mg. Pt reports that his blood pressure is mostly in the 130s/70s at home. Pt will call me if he sustains above 140/90. Will order labs. Denies chest pain, shortness of breath, headache, dizziness, and blurred vision. [facility] Medical History Monoclonal gammopathy of unknown significance (MGUS) NARINDER positive Normal colonoscopy Heart murmur Osteoarthritis Hyperlipidemia Elevated PSA History of recurrent UTIs BPH (benign prostatic hyperplasia) Hypertension Surgical History H/O colonoscopy H/O vasectomy History of arthroscopy of knee Family History Father Lung cancer HTN (hypertension) Mother CVD (cardiovascular disease) Kidney disease Cancer Other Mental health disorder Substance use disorder Social History Housing: House Alcohol intake: never Patient Tobacco Use Status: Never used Tobacco e-Cigarette/Vaping Use: Never Used Second Hand Smoke Exposure: Yes service: No 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 1. Little interest or pleasure in doing things: not at all 2. Feeling down, depressed, or hopeless: not at all 3. Trouble falling or staying asleep, or sleeping too much: several days 4. Feeling tired or having little energy: not at all 5. Poor appetite or overeating: several days 6. Feeling bad about yourself - or that you are a failure or have let yourself or your family down: not at all 7. Trouble concentrating on things, such as reading the newspaper or watching television: not at all 8. Moving or speaking so slowly that other people could have noticed. Or the opposite - being so fidgety or restless that you have been moving around a lot more than usual: not at all 9. Thoughts that you would be better off or of hurting yourself in some way: not at all Total score: 2 Depression Screening Interpretation: Negative Depression Screening Done: Yes 38802 - PHQ-9 Billing: Yes Source: Developed by Drs. Rafi Johnson, Carla Thurman, Rivera Benites and colleagues, with an educational samir from [employer]. Thrive Questionnaire Date Thrive assessed: 07/01/22 CAILIN-7 AMB Questionnaire CAILIN-7 Date CAILIN - 7 assessed: 07/01/22 Source: Developed by Drs. Rafi Johnson, Carla Thurman, Rivera Benites and colleagues, with an educational samir from [employer] Review of Systems Const Reports as per HPI Physical exam (Primary Care) Vital Signs: Last Vital Signs Pulse 68 09/03/23 09:15 BP 150/80 H 09/03/23 09:15 Pulse Ox 97 09/03/23 09:15 BMI result Body Mass Index 33.7 Tobacco/Smoking Status: Tobacco use Status Tobacco use date assessed 09/03/23 09/03/23 09:18 Patient Tobacco Use Status Never used Tobacco 09/03/23 09:18 e-Cigarette/Vaping Use Never Used 09/03/23 09:18 PHQ-9: PHQ-9 Score PHQ-9: Total score 2 09/03/23 09:46 Depression Screening Interpretation: Negative Thrive Assessment: Date of Thrive Assessment Date Thrive assessed 07/01/22 09/03/23 09:18 Const General: cooperative Nutritional Appearance: obese Orientation/consciousness: patient oriented x3 Resp Effort & Inspection: normal respiratory effort Auscultation: clear to auscultation bilaterally Cardio Rate: regular rate Rhythm: regular rhythm Heart sounds: S1 normal heart sound present and S2 normal heart sound present Neuro General: patient oriented x3 Extrem Right lower extremity: no edema Left lower extremity: no edema Psych Appearance: grossly normal Mental Status: mental status grossly normal Speech and movement: Normal speech and movement present Affect: normal affect Attitude: cooperative Thought process: Normal thought process present Thought content: Normal thought content present Insight: Good insight present (Psych) Judgement: Good judgement present (Psych) Assessment and Plan Assessment & Plan (1) Hypertension: Code(s): I10 - Essential (primary) hypertension Plan: Pt will call me if BP sustains above 140/90, labs ordered Plan The patient agreed to the use of a medical imaging specialist for this encounter. Scribed for EVER Briceno by Aretha Medley medical imaging specialist, on 09/03/2023 at 09:45 EST. Orders: Orders Comprehensive [place]. Panel Fast Today I10 - Essential (primary) hypertension TSH reflex Free T4 Today I10 - Essential (primary) hypertension UA CC w/rflx Micro + Cult Today I10 - Essential (primary) hypertension Lipid Panel Today I10 - Essential (primary) hypertension Complete Blood Count Auto Diff Today I10 - Essential (primary) hypertension Coding Level of Care Code Est Pt Level 3 (62179) Diagnoses Hypertension I10
[2023-09-03 09:59] VITALS: BP 142/78
== END 2023-09-03 10:01 | disposition home or self-care (01) ==
PROVIDERS: PCP Nurse Practitioner Family; Visit Provider Nurse Practitioner Family
DX: I10 Essential (primary) hypertension (principal)
CPT/HCPCS: 99213

== ENCOUNTER 2023-09-22 12:43 | Outpatient (AMB) | payer MEDICARE, SELFPAY ==
--- NOTE | 2023-09-22 12:46 | A.OFFVIS_ITS ---
Intake Vital Signs 09/22/23 13:07 Height 6 ft 3 in Weight 270 lb BMI 33.7 Intake Visit Reasons: ov- Bilateral knee Durolane injection Intake Note: Shaka a 68 year old male who presents today for bilateral knee Durolane injections. Allergies chlorthalidone [CHLORTHALIDONE] Allergy (Mild, Verified 09/22/23 13:07) RASH , Rash zinc [ZINC] Allergy (Mild, Verified 09/22/23 13:07) RASH, TINGLING IN MOUTH, Rash HPI ov- Bilateral knee Durolane injection HPI Details 68-year-old male who returns to the [facility] today for a bilateral knee Durolane injection. [facility] Medical History Monoclonal gammopathy of unknown significance (MGUS) NARINDER positive Normal colonoscopy Heart murmur Osteoarthritis Hyperlipidemia Elevated PSA History of recurrent UTIs BPH (benign prostatic hyperplasia) Hypertension Surgical History H/O colonoscopy H/O vasectomy History of arthroscopy of knee Family History Father Lung cancer HTN (hypertension) Mother CVD (cardiovascular disease) Kidney disease Cancer Other Mental health disorder Substance use disorder Social History Housing: House Alcohol intake: never Patient Tobacco Use Status: Never used Tobacco e-Cigarette/Vaping Use: Never Used Second Hand Smoke Exposure: Yes service: No 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 No tenderness along the medial or lateral joint line. Full ROM with crepitus. Negative Reynaldo?s. No ligamentous laxity. NVI. Right knee: Skin intact, no erythema or joint effusion. Tenderness along the medial joint line. Full ROM with crepitus. Negative Reynaldo?s. No ligamentous laxity. NVI. Office Procedures Joint Injection/Drain Joint Injection/Drain Details: bilat knee durolane injections Primary Site: right knee Secondary Site: left knee Prep: site was prepped using aseptic technique, ethochloride spray was applied and injection warnings given Injected: in the joint Approach Used: anterolateral Procedure: The patient tolerated the procedure well Coding 81969 - Glenohumeral/Tronchanteric Bursa/Intraarticular Procedure code (CPT) selection complete Assessment & Plan Assessment & Plan (1) Osteoarthritis of knees, bilateral: Code(s): M17.0 - Bilateral primary osteoarthritis of knee Qualifiers: Osteoarthritis type: primary Qualified Code(s): M17.0 - Bilateral primary osteoarthritis of knee Plan We discussed options today which include Durolane injection. They did consent to move forward with the bilateral knee Durolane injection, which was tolerated well. I recommended rest, ice and elevation and OTC anti-inflammatories PRN for discomfort. If symptoms persist or worsens over the next 6-8 weeks, patient will contact the office, otherwise follow-up as needed. Patient Instructions: Scribed for Alyx Madison PA-C, by Jose Alvarez medical chief technician, on 09/22/2023 at 1:00 PM EST. I, Alyx Madison PA-C, have personally reviewed and agree with the information entered by the scribe. Coding Level of Care Code Procedure Only Diagnoses Primary osteoarthritis of both knees M17.0 Osteoarthritis type: primary CPT Codes Coding - Joint 7: 00665 - Glenohumeral/Tronchanteric Bursa/Intraarticular ([id number])
[2023-09-22 13:07] VITALS: BMI 33.7
== END 2023-09-22 14:04 | disposition home or self-care (01) ==
PROVIDERS: PCP Nurse Practitioner Family; Visit Provider Physician Assistant
DX: M17.0 Bilateral primary osteoarthritis of knee (principal)
CPT/HCPCS: 20610

== ENCOUNTER → 2023-09-22 12:43 | Outpatient (BNVA) | payer MEDICARE, SELFPAY | PROVIDERS: PCP Nurse Practitioner Family; Visit Provider Physician Assistant | DX: M17.0 Bilateral primary osteoarthritis of knee (principal) | CPT/HCPCS: 20610; J7318 ==

== ENCOUNTER 2023-11-04 09:00 | Outpatient (RCR) | payer MEDICARE, SELFPAY ==
--- NOTE | 2023-10-10 14:06 | MHC.PT.EP ---
[facility] [place] Office [place] Office [place] Office [address] [phone] F: [phone] F: [phone] F: [phone] F: [phone] Physical Therapy Plan of Care Date of Evaluation: 10/08/23 Date of Surgery: NA Diagnosis: KNEE OA (KP) Assessment: ALTAGRACIA IS A PLEASANT 68 YO MALE WHO PRESENTS WITH JARAD KNEE PAIN, RIGHT GREATER THAN LEFT. HE STATES RECENT GEL INJECTIONS HAVE HELPED PAIN LEVELS. HIS GREATEST DIFFICULTY IS ON STAIRS. DENIES BRUISING, SWELLING OR CHANGE IN SENSATION. DENIES NAYLA. UPON EXAM IMPAIRMENTS INCLUDE DECREASED ROM, DECREASED STRENGTH OF HIP MUSCULATURE, ALTERED GAIT AND INCREASED PAIN. FUNCTIONAL LIMITATIONS INCLUDE DECREASED STAIR NEGOTIATION, DECREASED TOLERANCE TO FITNESS AND RECREATIONAL ACTIVITIES. Frequency and Duration: The patient will be seen 2 X WEEK FOR 4 WEEKS Short Term Goals: INITIATE HEP AND PROMOTE SELF MANAGEMENT OF SYMPTOMS Hvac Tech Goals: FULL KNEE ROM FULL LE STRENGTH EQUAL JARAD TO PERFORM RECIPROCAL GAIT ON STAIRS WITHOUT PAIN TO RETURN TO FULL GYM PROGRAM Treatment Plan: Modalities to reduce pain, spasms and effusion. Manual therapy to restore motion and function. Therapeutic exercise to improve strength and flexibility. Neuromuscular re-education for posture and balance. Therapeutic activities to return to functional activities of daily living. Electronically signed by: JUSTICE RASHID PT DPT Please sign and return to therapist. Thank you for your referral.
== END 2023-11-04 10:54 | disposition home or self-care (01) ==
LOC: HO.PT 09:00
PROVIDERS: PCP Nurse Practitioner Family; Visit Provider Physician Assistant
DX: M17.0 Bilateral primary osteoarthritis of knee (principal)
CPT/HCPCS: 97110; 97161; 97530

== ENCOUNTER 2023-11-21 09:44 | Outpatient (REF) | payer MEDICARE, SELFPAY ==
[2023-11-21 13:15] LABS: MANUAL DIFF FLAG NO
[2023-11-21 13:18] LABS: Appearance Urine Clear; Color Urine Yellow; Glucose Urine UA Negative (Negative); Leukocyte Esterase Urine Negative (Negative); Nitrite Urine Negative (Negative); PH 7.5 (5.0-9.0); Urine Blood Negative (Negative); Urine Ketones Negative (Negative); Urine Protein Negative (Neg-Trace)
[2023-11-21 13:29] LABS: Basophils Absolute Auto 0.1 X10*3/uL (0.0-0.2); Basophils Percent Auto 0.5 % (0-2); Eosinophils Absolute Auto 0.1 X10*3/uL (0.0-0.4); Hematocrit 43.7 % (42.0-52.0); Hemoglobin 14.9 g/dl (14.0-18.0); Imm Gran Abs Auto 0.03 X10*3/uL (0.00-0.03); Imm Gran Pct Auto 0.3 % (0.0-0.4); Lymphocytes Absolute Auto 1.1 X10*3/uL (1.2-4.9); Lymphocytes Percent Auto 10.9 % (20-40); Mean Corpuscular HGB Conc 34.1 g/dl (31.0-36.0); Mean Corpuscular Volume 93.8 fL (80.0-98.0); Mean Platelet Volume 10.8 fL (9.4-12.4); Monocytes Absolute Auto 0.9 X10*3/uL (0.1-1.2); Monocytes Percent Auto 9.1 % (2-11); Neutrophils Absolute Auto 7.7 x10*3/uL (2.0-8.3); Neutrophils Percent Auto 78.2 % (45-73); Platelet Count 229 X10*3/uL (160-400); Red Blood Count 4.66 X10*6/uL (4.60-5.80); Red Cell Distribution Width 12.7 % (11.0-16.0); White Blood Count 9.9 X10*3/uL (4.8-10.8)
[2023-11-21 13:50] LABS: Alanine Aminotransferase 20 U/L (0-40); Albumin Level 4.1 g/dL (3.5-5.0); Alkaline Phosphatase 125 U/L (39-117); Anion Gap 12 (12-20); Aspartate Amino Transferase 20 U/L (5-37); Bilirubin Total 1.8 mg/dL (0.0-1.0); Blood Urea Nitrogen 12 mg/dL (9-16); Calcium 9.1 mg/dL (8.4-10.2); Carbon Dioxide 26 mmol/L (22-29); Chloride 106 mmol/L (96-108); Cholesterol 159 mg/dL (<200); Estimated Glomerular Filt Rate > 60; Glucose Fasting 96 mg/dL (60-99); HDL Cholesterol 34 mg/dL (>40); LDL Cholesterol Calculated 101 mg/dL (<100); Potassium 3.9 mmol/L (3.3-5.1); Sodium 140 mmol/L (135-145); Total Protein 6.5 g/dL (6.5-8.0); Triglycerides 123 mg/dL (<150)
== END 2023-11-21 09:45 | disposition home or self-care (01) ==
LOC: HO.HMGCLDS 09:44
PROVIDERS: PCP Nurse Practitioner Family; Visit Provider Nurse Practitioner Family
DX: I10 Essential (primary) hypertension (principal)
CPT/HCPCS: 36415; 80053; 80061; 81003; 84443; 85025

== ENCOUNTER 2024-01-19 10:00 | Outpatient (REF) | payer MEDICARE, SELFPAY ==
[2024-01-19 14:00] LABS: Prostate Specific Antigen 2.41 ng/mL (<0.05-4.0)
== END 2024-01-19 10:01 | disposition home or self-care (01) ==
LOC: HO.HMGCLDS 10:00
PROVIDERS: PCP Nurse Practitioner Family; Visit Provider Urology
DX: R97.20 Elevated prostate specific antigen [PSA] (principal); Z12.5 Encounter for screening for malignant neoplasm of prostate
CPT/HCPCS: 36415; 84153

== ENCOUNTER 2024-01-28 10:31 | Outpatient (AMB) | payer MEDICARE, SELFPAY ==
--- NOTE | 2024-01-28 10:46 | A.OFFVIS_ITS ---
Intake Visit Reasons: 6M Follow Up-PVR/PSA(set) Intake Note: Patient is Present for PVR/PSA Urology Med: Finasteride, Sildenafil Antibiotic Allergy: None Blood Thinner: None Last PVR: 24 Todays PVR:18 Web Marketing Strategist Required: No Accompanied by: Self / Same As Patient Allergies chlorthalidone [CHLORTHALIDONE] Allergy (Mild, Verified 01/28/24 10:48) RASH , Rash zinc [ZINC] Allergy (Mild, Verified 01/28/24 10:48) RASH, TINGLING IN MOUTH, Rash Medication List - Last Reconciled 01/28/24 by Jamal Vital MD amlodipine 10 mg PO DAILY cholecalciferol (vitamin D3) (Vitamin D3) 50 mcg PO DAILY finasteride 5 mg PO ONCE 90 days lisinopril 40 mg PO DAILY metoprolol succinate ER 50 mg PO DAILY sildenafil 100 mg PO NEEDED PRN 20 days tamsulosin (Flomax) 0.4 mg PO BEDTIME 30 days HPI Comments Details: Shaka is a pleasant male. He is a patient of Dr. Monsivais. He is seen for the following urologic conditions - lower urinary tract symptoms - elevated PSA - erectile dysfunction - bladder stone PVR 20 cc Six-month follow-up Has been on finasteride since stones procedure. Prior recommendation for laser prostate. Would like to try tamsulosin for nocturia. Prescription provided. If not successful would recommend GreenLight laser prostatectomy Refill finasteride Bladder Stone Imaging - 05/08 There is a mobile echogenic stone measuring 2.1 x 1.0 x 2.0 cm in the dependent portion. Bilateral ureteral jets are demonstrated. Prevoid bladder volume is 194 mL. Postvoid bladder volume is 104 mL. Prostate volume measures 57 mL. Elevated PSA/Abnormal MARY: Continue with finasteride PSA dropped appropriately to 50% initial value He presents for further evaluation of elevated PSA. Current management is observation. Laboratory investigations include 04/03 , a total PSA evaluation 5.4 - PSA 08/05 3.1, 03/05 3.1, 06/05 2.7, 06/06 2.0, 05/08 2.5, 02/06 2.4 [facility] Medical History [place] syndrome Monoclonal gammopathy of unknown significance (MGUS) NARINDER positive Normal colonoscopy Heart murmur Osteoarthritis Hyperlipidemia Elevated PSA History of recurrent UTIs BPH (benign prostatic hyperplasia) Hypertension Surgical History H/O colonoscopy H/O vasectomy History of arthroscopy of knee Family History Father Lung cancer HTN (hypertension) Mother CVD (cardiovascular disease) Kidney disease Cancer Other Mental health disorder Substance use disorder Social History Housing: House Alcohol intake: never Patient Tobacco Use Status: Never used Tobacco e-Cigarette/Vaping Use: Never Used Second Hand Smoke Exposure: Yes service: No 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 Current occupational exposures/hazards: No Cognitive needs: No Hearing needs: No Vision needs: Yes Review of Systems Const Denies chills and Denies fever(s) Card Reports no additional complaints and Denies syncope Resp Denies cough GI Denies abdominal pain and Denies heartburn Reports as per HPI and Denies change in libido Neuro Denies syncope Psych Denies change in libido Endo Denies change in libido Physical Exam Const General: cooperative, healthy appearing, comfortable and no acute distress Orientation/consciousness: patient oriented x3 HEENT Face and sinus: Yes normal facial exam Mouth: moist mucous membranes Neck Neck: Yes normal visual inspection, Yes full ROM and Yes trachea midline Chest Chest palpation & inspection: normal inspection of the chest Resp Effort & Inspection: normal respiratory effort, able to speak in complete sentences and no respiratory distress GI Inspection: Yes normal to inspection Back/Spine/Pelvis Cervical Spine: normal cervical lordosis Thoracic/Lumbar Spine: thoracic and lumbar spine normal to inspection Skin General skin exam: no rashes or lesions noted Neuro General: patient oriented x3, gait normal, tone normal and moves all extremities Extrem General: Yes normal to inspection and Yes capillary refill normal Office Procedures Post Void Residual Post Residual Void Post Void Residual (PVR): 18 [id number] Void Residual by ultrasound Assessment & Plan Assessment & Plan (1) BPH loc w urin obs/LUTS: Code(s): N40.1 - Benign prostatic hyperplasia with lower urinary tract symptoms Category: Medical (2) Nocturia more than twice per night: Code(s): R35.1 - Nocturia Category: Medical Plan Add tamsulosin Six-month follow-up He will call if effective Orders: Orders Prostate Specific Antigen 01/19/24 R97.20 - Elevated prostate specific antigen [PSA] AMB Post Void Residual by ultrasound Today N40.1 - Benign prostatic hyperplasia with lower urinary tract symptoms Medications: New tamsulosin (Flomax) 0.4 mg PO BEDTIME 30 days 30 tabs 0RF R39.12 - Poor urinary stream Patient Instructions: Imaging studies, laboratory and physical exam results were discussed and reviewed in detail. No major barriers to patient understanding were identified. An opportunity to ask questions regarding the treatment plan was provided. All questions were answered. The patient expressed understanding and agreement with the above treatment plan. The patient is aware they should contact our office by phone for worsening of their current condition or the appearance of new urologic symptoms. Compliance is encouraged with any medications and followup testing that is ordered. It is a privilege to participate in the urologic care of your patient. If you have any questions or concerns regarding treatment for the above conditions, or other urologic issues, please do not hesitate to contact me. The office telephone contact is [phone]. This note is constructed using voice recognition software. While every effort has been made to ensure accuracy entry level chemist errors may have been included. Yours sincerely, Dr Jamal Vital MD, [facility] - Urology Providers of Expert, Compassionate Care for the Genitourinary System Coding Level of Care Code Est Pt Level 4 (54820) Diagnoses BPH loc w urin obs/LUTS N40.1 Nocturia more than twice per night R35.1 CPT Codes Post Residual Void - PVR CPT Code: 07157-Gntx Void Residual by ultrasound ([id number])
== END 2024-01-28 11:08 | disposition home or self-care (01) ==
PROVIDERS: PCP Nurse Practitioner Family; Visit Provider Urology
DX: N40.1 Benign prostatic hyperplasia with lower urinary tract symptoms (principal); R35.1 Nocturia
CPT/HCPCS: 99214

== ENCOUNTER → 2024-01-28 10:31 | Outpatient (BNVA) | payer MEDICARE, SELFPAY | PROVIDERS: PCP Nurse Practitioner Family; Visit Provider Urology | DX: N40.1 Benign prostatic hyperplasia with lower urinary tract symptoms (principal); N52.9 Male erectile dysfunction, unspecified; R35.1 Nocturia; R39.12 Poor urinary stream; Z79.899 Other long term (current) drug therapy | CPT/HCPCS: 51798; 99212 ==

== ENCOUNTER 2024-02-17 11:58 | Outpatient (AMB) | payer MEDICARE, SELFPAY ==
--- NOTE | 2024-02-17 12:00 | A.OFFVIS_ITS ---
Vital Signs 02/17/24 12:03 Height 6 ft 3 in Weight 256 lb 2.834 oz BMI 32.0 BP 150/72 H Blood Pressure Location Rt brachial Position Sitting Pulse 66 Pulse Source Pulse Oximeter Pulse Oximetry (%) 97 Oxygen Delivery Method Room Air Intake Visit Reasons: Follow up US Intake Note: Shaka presents in office today for a scheduled FUV. CC; Pt is here to discuss US results. Pt reports that they have remained stable since their last visit. Pt denies any new concerns or sx at this time. Pt does not need any medication refills. 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 He is gained some weight due to inactivity, mostly because he dropped a 4 x 4 on his toe and fractured it! On the good side he did have lithotripsy to remove a very large bladder stone a nd this has cure all of his urinary problems that really were impairing his quality of life. His alk-phos and his bilirubin a creeping up. I believe this is because he has multiple mobile gallstones. We again discussed possible alarm signs and symptoms that would necessitate an ER presentation, and he also was counseled to avoid fatty and fried foods as much as possible as this could trigger ga llbladder attack. Will get some labs to check and see where he is at especially since he just returned from [place] where he admits he was not eating so well because there eating out at restaurants quite a lot. Return office visit in 6 months. Orders: Orders Mitochondrial Antibody Today R17 - Unspecified jaundice, R74.8 - Abnormal levels of other serum enzymes US abdomen complete Today K80.20 - Calculus of gallbladder without cholecystitis without obstruction, R17 - Unspecified jaundice, R74.8 - Abnormal levels of other serum enzymes Liver Panel Today R17 - Unspecified jaundice, R74.8 - Abnormal levels of other serum enzymes Labs: Laboratory Tests 08/19/23 11/21/23 09:28 09:54 Total Bilirubin 1.8 H AST 20 ALT 20 Alkaline Phosphatase 125 H Anti-Mitochondrial Ab NEGATIVE Ultrasound of the abdomen 09/01/23 FINDINGS: PANCREAS: Limited visualization of pancreatic tail and head. Imaged portion of pancreatic body is unremarkable. ABDOMINAL AORTA: Limited visualization. INFERIOR VENA CAVA: Visualized portions are normal. LIVER: Increased hepatic parenchymal heterogeneity and echogenicity could be associated with hepatocellular disease/hepatic steatosis and severely limits visualization. Correlation with liver function tests and clinical exam recommended to determine further management. GALLBLADDER: Borderline gallbladder wall thickening 0.33 cm. Cholelithiasis. COMMON BILE DUCT: Normal in caliber measuring 0.5 cm in diameter. RIGHT KIDNEY: No hydronephrosis. No renal calculi. Renal cortical thickness is normal. Redemonstration of 1.4 cm and 3.5 cm mid pole right renal cysts. There is no indication for additional imaging at this time. The kidney measures 11.5 cm in maximum dimension. LEFT KIDNEY: No hydronephrosis. No renal calculi. Limited visualization. Redemonstration of 2.2 cm lower pole cyst. There is no indication for additional imaging. A 2.4 cm upper pole cyst. The kidney measures 11.5 cm in maximum dimension. SPLEEN: Normal. The spleen measures 10.9 cm in maximum dimension. FREE FLUID: None. US/US abdomen complete IMPRESSION: 1 Increased hepatic parenchymal heterogeneity and echogenicity could be associated with hepatocellular disease/hepatic steatosis and severely limits visualization. Correlation with liver function tests and clinical exam recommended to determine further management. 2. Borderline gallbladder wall thickening 0.33 cm. Cholelithiasis. TODAY'S VISIT He continues to be well and w/o any GB sx. He does not have any autoimmune markers to indicate PBC, so we again discuss sn/sx that would necessitate and ER visit. At this time he is not in favor of an elective gavin, and he saw Dr. Santos who also agreed. ZOEY westn. [facility] Medical History (Updated 02/17/24 @ 12:35 by SANKET Hardin) Physical exam Bladder stone (~07/2023) [place] syndrome Monoclonal gammopathy of unknown significance (MGUS) NARINDER positive Normal colonoscopy Heart murmur Osteoarthritis Hyperlipidemia Elevated PSA History of recurrent UTIs BPH (benign prostatic hyperplasia) Hypertension Surgical History H/O colonoscopy H/O vasectomy History of arthroscopy of knee Family History Father Lung cancer HTN (hypertension) Mother CVD (cardiovascular disease) Kidney disease Cancer Other Mental health disorder Substance use disorder Social History Housing: House Alcohol intake: never Patient Tobacco Use Status: Never used Tobacco e-Cigarette/Vaping Use: Never Used Second Hand Smoke Exposure: Yes service: No 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 Current occupational exposures/hazards: No Cognitive needs: No Hearing needs: No Vision needs: Yes Review of Systems Const Denies fatigue, Denies fever(s), Denies night sweats, Denies poor appetite and Denies weight loss Eyes Details: glasses Reports requires corrective lenses ENT Reports Normal hearing present, Denies dental pain, Denies dysphagia, Denies hearing loss, Denies mouth pain, Denies odynophagia, Denies throat swelling, Denies tongue swelling and Reports other (Dentition adequate) Card Reports no additional complaints Resp Reports no additional complaints GI Details: Denies abdominal pain, Denies melena, Denies bloating, Denies hematochezia, Denies constipation, Denies GI cramping, Denies dysphagia, Denies excessive flatus, Denies early satiety, Denies heartburn, Denies diarrhea, Denies nausea, Denies odynophagia, Denies vomiting and Denies hematemesis Skin/Breast Denies pruritus, Denies lesions, Denies rash and Denies jaundice Neuro Reports Normal hearing present and Denies Abnormal speech present Endo Denies fatigue Aller/Immun Denies throat swelling and Denies tongue swelling Physical Exam Vital Signs: Last Vital Signs Pulse 66 02/17/24 12:03 BP 150/72 H 02/17/24 12:03 Pulse Ox 97 02/17/24 12:03 Oxygen Delivery Method Room Air 02/17/24 12:03 BMI result Body Mass Index 32.0 Const General: cooperative, no acute distress, well developed and well groomed Nutritional Appearance: well nourished and obese Orientation/consciousness: oriented to person, oriented to place and oriented to time Limitations: No language barrier HEENT Head: Yes normocephalic and Yes atraumatic Eyes General: appearance normal, both eyes and all related structures Pupils: Equal, round and reactive pupils present Neck Neck: Yes normal visual inspection and Yes no lymphadenopathy Thyroid: Thyroid normal Resp Effort & Inspection: normal respiratory effort and able to speak in complete sentences Auscultation: clear to auscultation bilaterally Cardio Rate: regular rate Rhythm: regular rhythm Heart sounds: Normal, physiologic split S2 sound present Peripheral pulses: radial pulses present and posterior tibial pulses present GI Inspection: No distended, Yes Abdominal panniculus present and Yes obesity Palpation (GI): Soft to palpation, nontender, no guarding, not rigid and No hepatosplenomegaly present Percussion: Yes normal to percussion Auscultation: normal bowel sounds Rectal Exam - Male: Yes deferred Skin General skin exam: no rashes or lesions noted, turgor normal, skin not dry, no jaundice, No spider nevi and no striae Rashes: no rashes Nails: normal Neuro General: oriented to person, oriented to place and oriented to time Cranial nerves: Yes Equal, round and reactive pupils present and Yes Normal hearing present Speech: No Abnormal speech present Extrem General: Yes normal to inspection, No clubbing, No cyanosis and No edema Psych Appearance: grossly normal and well kempt Mental Status: mental status grossly normal Speech and movement: Normal speech and movement present Affect: normal affect Attitude: cooperative Thought process: Normal thought process present and not confabulating Thought content: Normal thought content present Insight: Good insight present (Psych) Judgement: Good judgement present (Psych) Results Reviewed Results Reviewed: Laboratory Tests 08/19/23 11/21/23 09:28 09:54 Total Bilirubin 1.8 H AST 20 ALT 20 Alkaline Phosphatase 125 H Anti-Mitochondrial Ab NEGATIVE Ultrasound of the abdomen 09/01/23 FINDINGS: PANCREAS: Limited visualization of pancreatic tail and head. Imaged portion of pancreatic body is unremarkable. ABDOMINAL AORTA: Limited visualization. INFERIOR VENA CAVA: Visualized portions are normal. LIVER: Increased hepatic parenchymal heterogeneity and echogenicity could be associated with hepatocellular disease/hepatic steatosis and severely limits visualization. Correlation with liver function tests and clinical exam recommended to determine further management. GALLBLADDER: Borderline gallbladder wall thickening 0.33 cm. Cholelithiasis. COMMON BILE DUCT: Normal in caliber measuring 0.5 cm in diameter. RIGHT KIDNEY: No hydronephrosis. No renal calculi. Renal cortical thickness is normal. Redemonstration of 1.4 cm and 3.5 cm mid pole right renal cysts. There is no indication for additional imaging at this time. The kidney measures 11.5 cm in maximum dimension. LEFT KIDNEY: No hydronephrosis. No renal calculi. Limited visualization. Redemonstration of 2.2 cm lower pole cyst. There is no indication for additional imaging. A 2.4 cm upper pole cyst. The kidney measures 11.5 cm in maximum dimension. SPLEEN: Normal. The spleen measures 10.9 cm in maximum dimension. FREE FLUID: None. US/US abdomen complete IMPRESSION: 1 Increased hepatic parenchymal heterogeneity and echogenicity could be associated with hepatocellular disease/hepatic steatosis and severely limits visualization. Correlation with liver function tests and clinical exam recommended to determine further management. 2. Borderline gallbladder wall thickening 0.33 cm. Cholelithiasis. Assessment & Plan Assessment & Plan (1) Gallstones: Code(s): K80.20 - Calculus of gallbladder without cholecystitis without obstruction Category: Medical (2) Elevated alkaline phosphatase level: Code(s): R74.8 - Abnormal levels of other serum enzymes Category: Medical (3) Elevated bilirubin: Code(s): R17 - Unspecified jaundice Category: Medical Plan He continues to be well and w/o any GB sx. He does not have any autoimmune markers to indicate PBC, so we again discuss sn/sx that would necessitate and ER visit. At this time he is not in favor of an elective gavin, and he saw Dr. Santos who also agreed. ROV prn. Coding Level of Care Code Est Pt Level 3 (93468) Diagnoses Gallstones K80.20 Elevated alkaline phosphatase level R74.8 Elevated bilirubin R17
[2024-02-17 12:03] VITALS: BP 150/72; PULSE 66; O2SAT 97; BMI 32.0
== END 2024-02-17 12:49 | disposition home or self-care (01) ==
PROVIDERS: PCP Nurse Practitioner Family; Visit Provider Nurse Practitioner
DX: K80.20 Calculus of gallbladder without cholecystitis without obstruction (principal); R74.8 Abnormal levels of other serum enzymes; R17 Unspecified jaundice
CPT/HCPCS: 99213

== ENCOUNTER → 2024-02-17 11:58 | Outpatient (BNVA) | payer MEDICARE, SELFPAY | PROVIDERS: PCP Nurse Practitioner Family; Visit Provider Nurse Practitioner | DX: K80.20 Calculus of gallbladder without cholecystitis without obstruction (principal); R74.8 Abnormal levels of other serum enzymes; R17 Unspecified jaundice | CPT/HCPCS: 99212 ==

== ENCOUNTER 2024-03-04 10:15 | Outpatient (AMB) | payer MEDICARE, SELFPAY ==
--- NOTE | 2024-03-04 10:28 | AM.OFFVISMDC ---
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 Required: No Allergies chlorthalidone [CHLORTHALIDONE] Allergy (Mild, Verified 03/04/24 10:30) RASH , Rash zinc [ZINC] Allergy (Mild, Verified 03/04/24 10:30) RASH, TINGLING IN MOUTH, Rash Medication List - Last Reconciled 03/04/24 by EVER Hunt amlodipine 10 mg PO DAILY cholecalciferol (vitamin D3) (Vitamin D3) 50 mcg PO DAILY finasteride 5 mg PO DAILY 90 days lisinopril 40 mg PO DAILY metoprolol succinate ER 50 mg PO DAILY sildenafil 100 mg PO NEEDED PRN 20 days tamsulosin (Flomax) 0.4 mg PO BEDTIME 90 days Do you need a note to return to daycare/school/sports/work: No HPI AWV G4038 HPI Details Pt is here for an AWV. Denies fever, chills, and dizziness. [place] of care in scan pile. PPP will be scanned in chart and copy will be given to pt. [facility] Medical History Macular degeneration Physical exam Bladder stone (~07/2023) [place] syndrome Monoclonal gammopathy of unknown significance (MGUS) NARINDER positive Normal colonoscopy Heart murmur Osteoarthritis Hyperlipidemia Elevated PSA History of recurrent UTIs BPH (benign prostatic hyperplasia) Hypertension Surgical History H/O colonoscopy H/O vasectomy History of arthroscopy of knee Family History Father Lung cancer HTN (hypertension) Mother CVD (cardiovascular disease) Kidney disease Cancer Other Mental health disorder Substance use disorder Social History Housing: House Alcohol intake: never Patient Tobacco Use Status: Never used Tobacco e-Cigarette/Vaping Use: Never Used Second Hand Smoke Exposure: Yes service: No 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 Current occupational exposures/hazards: No Cognitive needs: No Hearing needs: No Vision needs: Yes Questionnaire Medicare Wellness Checkup [age] 65-70 What gender do you identify with?: male During the past 4 weeks, how much have you been bothered by emotional problems such as feeling anxious, depressed, irritable, sad or downhearted, and blue?: slightly During the past 4 weeks, has your physical & emotional health limited your social activities with family, friends, neighbors, or groups?: not at all During the past 4 weeks, how much bodily pain have you generally had?: mild pain During the past 4 weeks, was someone available to help you if you needed & wanted help?: yes, as much as I wanted During the past 4 weeks, what was the hardest physical activity you could do for at least 2 minutes?: moderate Can you get to places out of walking distance without help? (For eg., can you travel alone on buses, taxis or drive your car?): Yes Can you go shopping for groceries or clothes without someone's help?: Yes Can you prepare your own meals?: Yes Can you do your housework without help?: Yes Because of any health problems, do you need the help of another person with your personal care needs such as eating, bathing, dressing or getting around the house?: No Can you handle your own money without help?: Yes During the past 4 weeks, how would you rate your health in general?: good During the past 4 weeks how have things been going for you?: pretty well Are you having difficulties driving your car?: no Do you always fasten your seat belt when you are in a car?: yes, usually During past 4 weeks, have you been bothered by the following: never: Falling or dizzy when standing up, Sexual problems?, Trouble eating well?, Teeth or denture problems?, Problems using the telephone? and Tiredness or fatigue? Have you fallen 2 or more times in the past year?: No Are you afraid of falling?: Yes Are you a smoker?: no During the past 4 weeks, how many drinks of wine, beer, or other alcoholic beverages did you have?: no alcohol at all Do you exercise for about 20 minutes 3 or more times a week?: yes, most of the time Have you been given information to help with the following?: no: Hazards in your house that might hurt you? and no: Keeping track of your medications? How often do you have trouble taking medicines the way you have been told to take them?: I always take medicine as prescribed How confident are you that you can control & manage most of your health problems?: very confident What is your race?: White Mini Mental State Exam (MMSE) Orientation What is the (year) (season) (date) (day) (month)?: year, season, date, day and month Where are we (state) (county) (town or city) (hospital) (floor)?: state, county, town or city, hospital/clinic and floor Registration Name of 3 unrelated objects clearly and slowly, then ask patient to repeat all 3 of them. (1st repeat determines score. Make sure they can repeat all three): object 1, object 2 and object 3 Attention & Calculation (CHOOSE ONE) Spell WORLD backwards (DLROW): 5 letters Recall Ask patient to repeat the 3 items from question #3.: object 1, object 2 and object 3 Language Show patient a wristwatch & ask what it is. Repeat for pencil.: watch and pencil Ask the patient to repeat the phrase 'No ifs, ands, or buts' after you.: correct Ask the patient to 'take a piece of paper with their right hand' 'fold paper in half' 'place paper on floor': take paper in right hand, fold paper in half and place paper on floor Print the sentence 'CLOSE YOUR EYES' on a piece. If patient actually closes eyes then score.: followed written direction Give patient a blank piece of paper & ask to write a sentence. Score if it contains a noun & verb.: sentence contains subject and verb Ask patient to copy figure of intersecting pentagons exactly. Score if all 10 angles & 2 intersects are included.: all 10 angles present & 2 are intersected Score Score: 30 Activity of Daily Living Bathing - sponge bath, tub bath or shower: receives no assistance (gets in/out by self, if usual bathing means Dressing - getting clothes from closets & drawers, including inner/outer garments & fasteners.: gets clothes & gets completely dressed without help Toileting - going to the 'toilet room' for urine/bowel elimination & cleaning self/arranging clothes: goes to toilet room, cleans self, arranges clothes without help Transfer: moves in & out of bed and chair without help (may use support object) Continence: controls urination/bowel movements completely by self Feeding: feeds self without help Total Score: 0 Information obtained from: patient Using telephone: independent Traveling: independent Shopping: independent Preparing meals: independent Housework: independent Taking medicine: independent Managing money: independent PHQ-9 Over the last 2 weeks, how often have you been bothered by any of the following problems? 1. Little interest or pleasure in doing things: not at all 2. Feeling down, depressed, or hopeless: not at all 3. Trouble falling or staying asleep, or sleeping too much: not at all 4. Feeling tired or having little energy: not at all 5. Poor appetite or overeating: not at all 6. Feeling bad about yourself - or that you are a failure or have let yourself or your family down: not at all 7. Trouble concentrating on things, such as reading the newspaper or watching television: not at all 8. Moving or speaking so slowly that other people could have noticed. Or the opposite - being so fidgety or restless that you have been moving around a lot more than usual: not at all 9. Thoughts that you would be better off or of hurting yourself in some way: not at all Total score: 0 Depression Screening Interpretation: Negative Depression Screening Done: Yes 25048 - PHQ-9 Billing: Yes Source: Developed by Drs. Rafi Johnson, Carla Thurman, iRvera Benites and colleagues, with an educational samir from [employer] Review of Systems Const Reports as per HPI Physical Exam Vital Signs: Last Vital Signs Pulse 86 03/04/24 10:29 BP 132/80 03/04/24 10:29 Pulse Ox 97 03/04/24 10:29 BMI result Body Mass Index 32.0 Const General: cooperative Orientation/consciousness: patient oriented x3 Neuro Other: - romberg, can tandem walk, can walk and turn, can rise from sitting to standing, passed whisper test General: patient oriented x3 Psych Appearance: grossly normal Mental Status: mental status grossly normal Speech and movement: Normal speech and movement present Affect: normal affect Attitude: cooperative Thought process: Normal thought process present Thought content: Normal thought content present Insight: Good insight present (Psych) Judgement: Good judgement present (Psych) Assessment & Plan Assessment & Plan (1) Vertigo: Code(s): R42 - Dizziness and giddiness (2) Screening for colon cancer: Code(s): Z12.11 - Encounter for screening for malignant neoplasm of colon (3) Encounter for subsequent annual wellness visit (AWV) in Medicare patient: Code(s): Z00.00 - Encounter for general adult medical examination without abnormal findings Plan The patient agreed to the use of a medical records specialist for this encounter. Scribed for EVER Briceno by Aretha Medley medical records specialist, on 03/04/2024 at 10:45 EST. Orders: Orders PT Evaluation and Treatment Today R42 - Dizziness and giddiness Referrals Gastroenterology Referral Z12.11 - Encounter for screening for malignant neoplasm of colon Quality Reporting (2019) Depression/Bipolar (159/160/161/177) PHQ-9: Total score: 0 Coding Level of Care Code Medicare First (G0438) Diagnoses Vertigo R42 Screening for colon cancer Z12.11 Encounter for subsequent annual wellness visit (AWV) in Medicare patient Z00.00 CPT Codes Advance Care Planning - Time spent: 1-15 minutes, on File ([id number]) Advance Care Planning Forms completed: Health Care Proxy (form given to pt), MOLST (form given to pt to fill out) and Living will (recommended this gets completed) Time spent: 1-15 minutes, on File Actual minutes spent: 15
[2024-03-04 10:29] VITALS: BP 132/80; PULSE 86; O2SAT 97; BMI 32.0
== END 2024-03-04 11:06 | disposition home or self-care (01) ==
PROVIDERS: PCP Nurse Practitioner Family; Visit Provider Nurse Practitioner Family
DX: Z00.00 Encounter for general adult medical examination without abnormal findings (principal); R42 Dizziness and giddiness; Z12.11 Encounter for screening for malignant neoplasm of colon

== ENCOUNTER → 2024-03-04 10:15 | Outpatient (BNVA) | payer MEDICARE, SELFPAY | PROVIDERS: PCP Nurse Practitioner Family; Visit Provider Nurse Practitioner Family ==

== ENCOUNTER 2024-04-05 14:00 | Outpatient (RCR) | payer MEDICARE, SELFPAY ==
[2024-03-31 10:01] VITALS: BP 131/63; PULSE 63
--- NOTE | 2024-03-31 10:43 | MHC.PT.EP ---
[facility] [place] [facility] [place] [facility] [place] [facility] [address] Tricia Pinon [address] [phone] F: [phone] F: [phone] F: [phone] F: [phone] Physical Therapy Plan of Care Date of Evaluation: 03/31/24 Date of Surgery: NA Diagnosis: Dizziness and giddiness Assessment: Shaka is a 68 year old male who is referred to PT for dizziness and giddiness . He reports of having symptoms of dizziness for about 1 month. He has had vertigo in the past and it was managed by PT. He currently reports of room spinning dizziness with looking up, sit to supine and rolling in bed. His symptoms lasts for a few seconds. He also reports of having mild nausea. Denies vomiting. On PT examination he presented with intact saccades, smooth pursuit, intact visual tracking, negative VBI and head thrust. He was positive for R PC BPPV- only reported of dizziness, no nystagmus noted. He is independent with all ADLS but moves slowly through them due to dizziness. He is retired. He would benefit from skilled PT to address the aforementioned impairments and improve tolerance to functional activities. Frequency and Duration: The patient will be seen 2/week for 4 weeks Short Term Goals: Hand Iii Cutter Goals: Patient to be educated on symptoms and indications to return to therapy when needed min 4 weeks. Pt will be negative for nystagmus or reports of vertigo in all diagnostic positions bilaterally to resolution of BPPV in 4 weeks. Patient to be able to functionally move in all planes and directions without provocation of dizziness to show return to PLOF in 4 weeks. Treatment Plan: Modalities to reduce pain, spasms and effusion. Manual therapy to restore motion and function. Therapeutic exercise to improve strength and flexibility. Neuromuscular re-education for posture and balance. Therapeutic activities to return to functional activities of daily living. Electronically signed by: Madyson Caldwell PT DPT Please sign and return to therapist. Thank you for your referral.
--- NOTE | 2024-05-07 16:02 | MHC.PT.DC ---
[facility] [place] Office [place] Office [place] Office [address] Pin[address] [phone] F: [phone] F: [phone] F: [phone] F: [phone] Physical Therapy Discharge Report Diagnosis: Dizziness and giddiness Date of Surgery: NA Date of Evaluation: 03/31/24 Date of Discharge: 05/07/24 Treatments to Date: 2 Cancellations to Date: 0 No Shows to Date: 0 Discharge Status: Achieved Goals Improved Function Independent with HEP Discharge Summary: Shaka has not had any symptoms of vestibular dysfunction in over a month. He is therefore being d/c from PT. Electronically signed by: Madyson Caldwell PT DPT Please sign and return to therapist. Thank you for your referral.
== END 2024-05-07 16:02 | disposition home or self-care (01) ==
LOC: HO.PT 14:00
PROVIDERS: PCP Nurse Practitioner Family; Visit Provider Nurse Practitioner Family
DX: H81.399 Other peripheral vertigo, unspecified ear (principal)
CPT/HCPCS: 95992; 97112; 97161

== ENCOUNTER 2024-07-03 08:47 | Emergency (ER) | payer MEDICARE, SELFPAY ==
--- NOTE | ~2024-07-03 | XR_ITS ---
CLINICAL HISTORY: cough 2 view chest x-ray Comparison: None Findings: Lungs are well inflated. Heart size and pulmonary vasculature are within normal limits. No focal areas of consolidation. No pleural effusions. IMPRESSION: 1. No acute findings. This document has been electronically signed by: Tino Matute MD on 07/03/2024 09:22:11
[2024-07-03 08:53] VITALS: BP 138/71; PULSE 95; RESP 19; TEMP 36.6; O2SAT 95; BMI 31.2
--- NOTE | 2024-07-03 09:44 | ED.URI ---
HPI - URI/Sore Throat General Chief Complaint: Upper Respiratory Symptoms Stated Complaint: cough chest congestion Time Seen by Provider: 07/03/24 09:09 Source: patient Mode of arrival: ambulatory Limitations: no limitations History of Present Illness ED Provider: Karely Tobin NP HPI Narrative: Patient is a 68-year-old male who presents emergency department for evaluation of intermittent productive cough and chest congestion progressive over the past week. Reports that he was visiting with his granddaughter for the entirety of last week who became quite ill with cough and congestion, she was brought to the hospital and tested positive for Haemophilus influenzae in addition to human metapneumovirus. He became ill soon after that. Denies fevers, chills, headache, dizziness, neck pain, neck stiffness, chest pain, sore throat, nausea, vomiting, abdominal pain, numbness or tingling of the extremities, genitourinary symptoms. Related Data Previous Rx's ?Medication ?Instructions ?Recorded sildenafil 100 mg tablet 100 mg PO NEEDED PRN sexual 04/28/21 activity 20 days #20 tabs cholecalciferol (vitamin D3) 50 50 mcg PO DAILY #90 tabs 01/12/24 mcg (2,000 unit) tablet (Vitamin D3) finasteride 5 mg tablet 5 mg PO DAILY 90 days #90 tabs 01/29/24 amlodipine 10 mg tablet 10 mg PO DAILY #90 tabs 04/14/24 lisinopril 40 mg tablet 40 mg PO DAILY #90 tabs 04/14/24 metoprolol succinate 50 mg 50 mg PO DAILY #90 tabs 04/14/24 tablet,extended release 24 hr tamsulosin 0.4 mg capsule (Flomax) 0.4 mg PO BEDTIME 90 days #90 tabs 05/18/24 amoxicillin 875 mg-potassium 1 tab PO BID #13 tabs 07/03/24 clavulanate 125 mg tablet Allergies Allergy/AdvReac Type Severity Reaction Status Date / Time chlorthalidone Allergy Mild RASH , Rash Verified 07/03/24 08:56 [CHLORTHALIDONE] zinc [ZINC] Allergy Mild RASH, Verified 07/03/24 08:56 TINGLING IN MOUTH, Rash Review of Systems Review of Systems: Yes all other systems are reviewed and are negative PMFSH Past Medical History Attestation statement: The following information was validated with the patient. Source: old records reviewed Medical History Macular degeneration Physical exam Bladder stone (~07/2023) [place] syndrome Monoclonal gammopathy of unknown significance (MGUS) NARINDER positive Normal colonoscopy Heart murmur Osteoarthritis Hyperlipidemia Elevated PSA History of recurrent UTIs BPH (benign prostatic hyperplasia) Hypertension Surgical History H/O colonoscopy H/O vasectomy History of arthroscopy of knee Family History Family History Father Lung cancer HTN (hypertension) Mother CVD (cardiovascular disease) Kidney disease Cancer Other Mental health disorder Substance use disorder Social History Social History Housing: House Alcohol intake: never Patient Tobacco Use Status: Never used Tobacco e-Cigarette/Vaping Use: Never Used Second Hand Smoke Exposure: Yes Advance Directives: No Advance Directives Information Provided: No Do you have a plan to hurt others: No Plan service: No 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 No acute distress.?Normal affect. Eyes: Pupils equal, round and reactive to light.? ENT: TM normal bilaterally. Pharynx normal.?? Neck: Normal inspection.? Neck supple.??No cervical adenopathy CVS: Heart sounds normal. Normal heart rate and rhythm.? Pulses normal.?? Respiratory: No respiratory distress.? Lung sounds clear to auscultation bilaterally?? Abdomen: Soft and non-tender. Normoactive bowel sounds. Skin: Skin warm and dry.? Normal skin color.? ? Extremities: No lower extremity edema.? Neuro: Moves all extremities spontaneously. Sensation intact bilaterally. No motor deficits. Ambulates with normal steady gait. Medical Decision Making Medical Decision Making [facility] Narrative: Patient is a 68-year-old male with past medical history of macular degeneration, [place] syndrome, MGUS, osteoarthritis, hyperlipidemia, BPH, hypertension, presenting for evaluation of upper respiratory symptoms. COVID-19/influenza/RSV testing is negative. Chest x-ray reveals no consolidation or infiltrate to suggest pneumonia. At this time history and physical exam not consistent with ACS/PE. Well-appearing, nontoxic, afebrile, no tachycardia or tachypnea/hypoxia. Speaking clear full sentences, ambulatory with steady gait. Given his close and prolonged exposure to child who has tested positive for Haemophilus influenza will treat with a course of antibiotics, received 1st dose of Augmentin in the emergency department and sent remainder prescription to pharmacy. Discussed conservative treatment including rest, hydration, Tylenol/ibuprofen as needed for fever and body aches, saline nasal spray, humidifier, [id number] cold medication. Advised to follow-up with primary care provider as needed, discussed reasons to return back to the emergency department. All questions were answered. Patient discharged home in stable condition. Differential Diagnosis Differential Diagnoses: The differential diagnosis associated with the presentation includes ( See narrative above) Admission/Observation Consideration of admission/observation: Escalation of care including admission/observation considered ( see narrative above) Lab Data [facility] Lab Attestation statement: I reviewed the patient's lab results. ( see narrative above) Labs: Lab Results 07/03/24 Range/Units 09:02 Influenza Type A (PCR) NEGATIVE (Negative) Influenza Type B (PCR) NEGATIVE (Negative) RSV RNA Qual (PCR) NEGATIVE (Negative) SARS-CoV-2 RNA (RT-PCR) NEGATIVE (Negative) Independent Interpretation I performed an independent interpretation of an: Plain X-Ray (See narrative above) Radiology Impression Discussion of test interpretation with radiology: I have reviewed the radiologist's reading. Radiologist Impression: 2 view chest x-ray Comparison: None Findings: Lungs are well inflated. Heart size and pulmonary vasculature are within normal limits. No focal areas of consolidation. No pleural effusions. IMPRESSION: 1. No acute findings. External Record Review External record reviewed: Outpatient record Prescription Management I considered prescription management with: Pain Medication ( acetaminophen/ibuprofen) Chronic Conditions Patient?s care impacted by: Other (See narrative above) Discharge Plan Discharge Clinical Impression: Acute lower respiratory infection Patient Disposition: Home, Self-Care Additional Instructions: Testing today for COVID-19/influenza/RSV were negative. Chest x-ray does not show evidence of pneumonia. Given your close exposure to your granddaughter who tested positive for Haemophilus influenzae, you will be treated with a course of antibiotics. You received your first dose in the emergency department take your 2nd dose later this evening and then twice daily for the entirety of the prescription. Do not skip any doses were stop taking early even if you begin to feel better. Be sure to rest, stay well hydrated drinking plenty of fluids, eat small frequent meals. Tylenol/ibuprofen can be used as needed for fever/pain. [id number] cold medications may be helpful as well for symptoms. Saline nasal spray, humidifier may be helpful for nasal congestion. You may return to the emergency department with any new or worsening symptoms or concerns. Follow-up with your primary care provider as needed. Prescriptions: New amoxicillin-pot clavulanate 875-125 mg tablet 1 tab PO BID Qty: 13 0RF No Action sildenafil 100 mg tablet 100 mg PO NEEDED PRN (Reason: sexual activity) 20 Days Qty: 20 4RF cholecalciferol (vitamin D3) [Vitamin D3] 50 mcg (2,000 unit) tablet 50 mcg PO DAILY Qty: 90 1RF finasteride 5 mg tablet 5 mg PO DAILY 90 Days Qty: 90 1RF lisinopril 40 mg tablet 40 mg PO DAILY Qty: 90 1RF amlodipine 10 mg tablet 10 mg PO DAILY Qty: 90 1RF metoprolol succinate 50 mg tablet extended release 24 hr 50 mg PO DAILY Qty: 90 1RF tamsulosin [Flomax] 0.4 mg capsule 0.4 mg PO BEDTIME 90 Days Qty: 90 0RF Referrals: Cole Zelaya, [employer] [Primary Care Provider] - Print Language: Albanian
[2024-07-03 09:49] LABS: Influenza A PCR NEGATIVE (Negative); Influenza B PCR NEGATIVE (Negative); Resp Syncy Virus RNA Qual PCR NEGATIVE (Negative); SARS COV2 PCR INHOUSE NEGATIVE (Negative)
[2024-07-03 09:50] VITALS: BP 166/68; PULSE 94; RESP 18; TEMP 37.2; O2SAT 99
[2024-07-03] MEDS: Amoxicillin/Potassium Clav 875 MG TABLET PO (10:21)
[2024-07-03 10:24] VITALS: BP 166/68; PULSE 94; RESP 18; TEMP 37.2; O2SAT 99
== END 2024-07-03 10:24 | disposition home or self-care (01) ==
PROVIDERS: Emergency Provider Emergency Medicine; PCP Nurse Practitioner Family
DX: J22 Unspecified acute lower respiratory infection (principal); R05.9 Cough, unspecified; Z03.818 Encounter for observation for suspected exposure to other biological agents ruled out
CPT/HCPCS: 0241U; 71046; 99283

== ENCOUNTER → 2024-07-03 08:57 | Outpatient (BNV) | payer MEDICARE, SELFPAY | PROVIDERS: PCP Nurse Practitioner Family; Visit Provider Radiology Diagnostic Radiology | DX: R05.9 Cough, unspecified (principal) | CPT/HCPCS: 71046 ==

== ENCOUNTER 2024-08-17 10:33 | Outpatient (AMB) | payer MEDICARE, SELFPAY ==
--- NOTE | 2024-08-17 11:05 | MHC.OFFVIS ---
Intake Visit Reasons: 6m/PVR(SET) Intake Note: Patient is Present for 6 month/PVR Urology Med: Finasteride, Sildenafil, Tamsulosin Antibiotic Allergy: None Blood Thinner: None Todays PVR:38ml Patient Portal Representative Required: No Accompanied by: Self / Same As Patient Allergies chlorthalidone [CHLORTHALIDONE] Allergy (Mild, Verified 08/17/24 11:09) RASH , Rash zinc [ZINC] Allergy (Mild, Verified 08/17/24 11:09) RASH, TINGLING IN MOUTH, Rash HPI Comments Details: Shaka is a pleasant male. He is a patient of Dr. Monsivais. He is seen for the following urologic conditions - lower urinary tract symptoms - elevated PSA - erectile dysfunction - on demand sildenafil - bladder stone PVR 40 cc Has been on combination therapy Has nocturia 2-3 times Describes adequate force in stream Feels he has good emptying Discussed trial of tadalafil He is amenable Three-month follow-up tele Bladder Stone Imaging - 05/08 There is a mobile echogenic stone measuring 2.1 x 1.0 x 2.0 cm in the dependent portion. Bilateral ureteral jets are demonstrated. Prevoid bladder volume is 194 mL. Postvoid bladder volume is 104 mL. Prostate volume measures 57 mL. Procedure - 07/09 cystoscopy with cystolitholapaxy Elevated PSA/Abnormal MARY: Continue with finasteride PSA dropped appropriately to 50% initial value He presents for further evaluation of elevated PSA. Current management is observation. Laboratory investigations include 04/03 , a total PSA evaluation 5.4 - PSA 08/05 3.1, 03/05 3.1, 06/05 2.7, 06/06 2.0, 05/08 2.5, 02/06 2.4 PFSH Medical History Macular degeneration Physical exam Bladder stone (~07/2023) [place] syndrome Monoclonal gammopathy of unknown significance (MGUS) NARINDER positive Normal colonoscopy Heart murmur Osteoarthritis Hyperlipidemia Elevated PSA History of recurrent UTIs BPH (benign prostatic hyperplasia) Hypertension Surgical History H/O colonoscopy H/O vasectomy History of arthroscopy of knee Family History Father Lung cancer HTN (hypertension) Mother CVD (cardiovascular disease) Kidney disease Cancer Other Mental health disorder Substance use disorder Social History Housing: House Alcohol intake: never Patient Tobacco Use Status: Never used Tobacco e-Cigarette/Vaping Use: Never Used Second Hand Smoke Exposure: Yes service: No 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 Current occupational exposures/hazards: No Cognitive needs: No Hearing needs: No Vision needs: Yes Review of Systems Const Denies chills and Denies fever(s) Card Reports no additional complaints and Denies syncope Resp Denies cough GI Denies abdominal pain and Denies heartburn Reports as per HPI and Denies change in libido Neuro Denies syncope Psych Denies change in libido Endo Denies change in libido Physical Exam Const General: cooperative, healthy appearing, comfortable and no acute distress Orientation/consciousness: patient oriented x3 HEENT Face and sinus: Yes normal facial exam Mouth: moist mucous membranes Neck Neck: Yes normal visual inspection, Yes full ROM and Yes trachea midline Chest Chest palpation & inspection: normal inspection of the chest Resp Effort & Inspection: normal respiratory effort, able to speak in complete sentences and no respiratory distress GI Inspection: Yes normal to inspection Back/Spine/Pelvis Cervical Spine: normal cervical lordosis Thoracic/Lumbar Spine: thoracic and lumbar spine normal to inspection Skin General skin exam: no rashes or lesions noted Neuro General: patient oriented x3, gait normal, tone normal and moves all extremities Extrem General: Yes normal to inspection and Yes capillary refill normal Results AMB Urinalysis, Automated UA Leukoctes 0 Torito/uL Last Edit by Yasmine Roth on 08/17/24 11:21 UA Nitrite Negative Last Edit by Yasmine Roth on 08/17/24 11:21 UA Urobilinogen 3.5 mg/dL Last Edit by Yasmine Roth on 08/17/24 11:21 UA Protein 1 mg/dL Last Edit by Yasmine Roth on 08/17/24 11:21 UA pH 7.0 Last Edit by Yasmine Roth on 08/17/24 11:21 UA Blood 0 Steven/uL Last Edit by Yasmine Roth on 08/17/24 11:21 UA Specific Melbeta 1.015 Last Edit by Yasmine Roth on 08/17/24 11:21 UA Ketone Negative Last Edit by Yasmine Roth on 08/17/24 11:21 UA Bilirubin 0 mg/dL Last Edit by Yasmine Roth on 08/17/24 11:21 UA Glucose 0 mg/dL Last Edit by Yasmine Roth on 08/17/24 11:21 Results Reviewed Results Reviewed: Laboratory Last Values Urine pH (Auto) 7.0 08/17/24 11:19 Specific Melbeta (Auto) 1.015 08/17/24 11:19 Urine Protein (Auto) 1 mg/dL 08/17/24 11:19 Glucose (UA)(Auto) 0 mg/dL 08/17/24 11:19 Urine Ketones (Auto) Negative 08/17/24 11:19 Urine Blood (Auto) 0 Steven/uL 08/17/24 11:19 Urine Nitrite (Auto) Negative 08/17/24 11:19 Urine Bilirubin (Auto) 0 mg/dL 08/17/24 11:19 Urine Urobilinogen (Auto) 3.5 mg/dL 08/17/24 11:19 Leukocyte Esterase (Auto) 0 Torito/uL 08/17/24 11:19 Assessment & Plan Assessment & Plan (1) Nocturia more than twice per night: Code(s): R35.1 - Nocturia Category: Medical (2) Weak urinary stream: Code(s): R39.12 - Poor urinary stream Category: Medical (3) BPH loc w urin obs/LUTS: Code(s): N40.1 - Benign prostatic hyperplasia with lower urinary tract symptoms Category: Medical Plan Trial tadalafil Three-month follow-up Orders: Orders AMB Urinalysis Automated Today Z13.9 - Encounter for screening, unspecified Medications: New tadalafil BIN N Group [facility] DR33 [id number] 5 mg PO DAILY 90 days 90 tabs 0RF sexual activity R35.1 - Nocturia Patient Instructions: This note is constructed using voice recognition software. While every effort has been made to ensure accuracy molding machine tender errors may have been included. Imaging studies, laboratory and physical exam results were discussed and reviewed in detail. No major barriers to patient understanding were identified. An opportunity to ask questions regarding the treatment plan was provided. All questions were answered. The patient expressed understanding and agreement with the above treatment plan. The patient is aware they should contact our office by phone for worsening of their current condition or the appearance of new urologic symptoms. Compliance is encouraged with any medications and followup testing that is ordered. It is a privilege to participate in the urologic care of your patient. If you have any questions or concerns regarding treatment for the above conditions, or other urologic issues, please do not hesitate to contact me. The office telephone contact is [phone]. Sincerely, Dr Jamal Vital MD, [facility] - Urology Compassionate Specialist Care for the Genitourinary System Coding Level of Care Code Est Pt Level 4 (89536) Diagnoses Nocturia more than twice per night R35.1 Weak urinary stream R39.12 BPH loc w urin obs/LUTS N40.1
--- OUTSIDE RECORDS SUMMARY | 2024-08-17 12:52 | XMS_ITS | Encounter Summary ---
Author Organization [employer] Address [address] [facility] [address] [place] [address] Care Team Providers Care Trim Installer Name Role Phone Unavailable Primary Care Provider Unavailabl e Encounter Details Date Type Department Care Team (Latest Contact Info) Description 10/19/2020 Abstract [facility] CONVERSIONS Dental, Provider, DDS Social History Tobacco Use Types Packs/Day Years Used Date Smoking Tobacco: Never Assessed Sex and Gender Information Value Date Recorded Sex Assigned at Male 04/15/2022 10:23 AM EDT Legal Sex Male 10:23 AM EDT Gender Identity Male 04/15/2022 10:23 AM EDT Sexual Orientation Straight 04/15/2022 10 :23 AM EDT documented as of this encounter Plan of Treatment Not on file documented as of this encounter Visit Diagnoses Not on filedocumented in this encounter
--- OUTSIDE RECORDS SUMMARY | 2024-08-17 12:52 | XMS_ITS | Clinical Summary ---
Author Organization [employer] Address [address] [facility] [address] [place] [address] Care Team Providers Care Crew Leader Gluing Name Role Phone Unavailable Primary Care Provider Unavailabl e Social History Tobacco Use Types Packs/Day Years Used Date Smoking Tobacco: Never Assessed Sex and Gender Information Value Date Recorded Sex Assigned at Male 04/15/2022 10:23 AM EDT Legal Sex Male 10:23 AM EDT Gender Identity Male 04/15/2022 10:23 AM EDT Sexual Orientation Straight 04/15/2022 10 :23 AM EDT Plan of Treatment Health Maintenance Due Date Last Done Comments CT Colonography 1956 Colonoscopy 1956 Colorectal Cancer Screening 1956 Depression Screening 1956 FIT DNA/Cologuard 1956 FIT 1956 FOBT 1956 Lipid Panel 1956 Sigmoidoscopy 1956 Alcohol/Substance Use Screening 1968 Tobacco Screening 1968 DTaP/Tdap/Td Vaccines (1 - Tdap) 1975 Pneumococcal Vaccine: 50+ Ye ars (1 of 1 - PCV) 2006 Zoster Vaccines (1 of 2) 2006 COVID-19 Vaccine ( - 2023-2 5 season) 2024 Influenza Vaccine (#1) 2024 RSV Patients and Pa tients Aged 60 years or older (1 - 1-dose 75+ series) 2031 HIB Vaccines Aged Out No longer eligi ble based on patient's age to complete this topic HPV Vaccines Aged Out No longer eligi ble based on patient's age to complete this topic Hepatitis A Vaccines Aged Out No long er eligible based on patient's age to complete this topic Hepatitis B Vaccines Aged Out No long er eligible based on patient's age to complete this topic IPV Vaccines Aged Out No longer eligi ble based on patient's age to complete this topic Meningococcal Vaccine Aged Out No demetrius mariusz eligible based on patient's age to complete this topic RSV under 20 months Aged Out No longe r eligible based on patient's age to complete this topic Rotavirus Vaccines Aged Out No longer eligible based on patient's age to complete this topic
--- OUTSIDE RECORDS SUMMARY | 2024-08-17 12:52 | XMS_ITS | Encounter Summary ---
Author Organization [employer] Address [address] [facility] [address] [place] [address] Care Team Providers Care Buying Agent Name Role Phone Unavailable Primary Care Provider Unavailabl e Encounter Details Date Type Department Care Team (Latest Contact Info) Description 11/25/2018 Abstract [facility] CONVERSIONS Dental, Provider, DDS Social History [...]
--- OUTSIDE RECORDS SUMMARY | 2024-08-17 12:52 | XMS_ITS | Clinical Summary ---
Author Organization [facility] Address [address] [place] [address] Care Team Providers Care Brand Executive Name Role Phone Gil Yanes MD Primary Care Provider [phone] Social History Tobacco Use Types Packs/Day Years Used Date Smoking Tobacco: Never Assessed Sex and Gender Information Value Date Recorded Sex Assigned at Not on file Legal Sex Male 6:15 AM EST Gender Identity Not on file Sexual Orientation Not on file Plan of Treatment Health Maintenance Due Date Last Done Comments DTaP,Tdap,and Td Vaccines (1 - Tdap) 1975 Pneumococcal Vaccine: 50+ Ye ars (1 of 1 - PCV) 2006 Zoster Vaccines (1 of 2) 2006 Abdominal Aortic Aneurysm (A AA) Screen 05/19/2022 Cholesterol Screening (Lipid Panel) 05/19/2022 Colorectal Cancer Screening: Colonoscopy 05/19/2022 Depression Screening 05/19/2022 Falls Risk Assessment 05/19/2022 Hepatitis C Screening 05/19/2022 Social Influencers of Health Screening 05/19/2022 COVID-19 Vaccine ( - 2023-2 5 season) 2024 Influenza Vaccine (#1) 2024 RSV Immunization Patients 60 + Years Old (1 - 1-dose 75+ series) 2031 HIB [...] on patient's age to complete this topic MMR Vaccines Aged Out No longer eligi ble based on patient's age to complete this topic Meningococcal ACWY Vaccine Aged Out N o longer eligible based on patient's age to complete this topic Meningococcal B Vacine Aged Out No lo nger eligible based on patient's age to complete this topic RSV Immunization Patients Un kelly 20 months Aged Out No longer eligible b ased on patient's age to complete this topic Varicella Vaccines Aged Out No longer eligible based on patient's age to complete this topic Care Teams Brand Executive Relationship Specialty Start Date End Date Gil Yanes MD [address] [place] [id number] PCP - General 05/22/16
== END 2024-08-17 11:32 | disposition home or self-care (01) ==
PROVIDERS: PCP Nurse Practitioner Family; Visit Provider Urology
DX: N40.1 Benign prostatic hyperplasia with lower urinary tract symptoms (principal); R39.12 Poor urinary stream; R35.1 Nocturia; Z13.9 Encounter for screening, unspecified
CPT/HCPCS: 99214

== ENCOUNTER → 2024-08-17 10:33 | Outpatient (BNVA) | payer MEDICARE, SELFPAY | PROVIDERS: PCP Nurse Practitioner Family; Visit Provider Urology | DX: N40.1 Benign prostatic hyperplasia with lower urinary tract symptoms (principal); R35.1 Nocturia; R39.12 Poor urinary stream | CPT/HCPCS: 81003; 99212 ==

== ENCOUNTER 2024-11-16 08:50 | Outpatient (AMB) | payer MEDICARE, SELFPAY ==
--- NOTE | 2024-11-16 08:50 | MHC.OFFVIS ---
Intake Visit Reasons: 3m follow up Intake Note: Patient is present for 3M F/U Urology Medication:FINASTERIDE,TADALAFIL Antibiotic Allergy:NONE Blood Thinner:NONE Guest Services Assistant Required: No Allergies chlorthalidone [CHLORTHALIDONE] Allergy (Mild, Verified 11/16/24 08:51) RASH , Rash zinc [ZINC] Allergy (Mild, Verified 11/16/24 08:51) RASH, TINGLING IN MOUTH, Rash HPI Comments Details: Shaka is a pleasant male. He is a patient of Dr. Monsivais. He is seen for the following urologic conditions - lower urinary tract symptoms - elevated PSA - erectile dysfunction - on demand sildenafil - bladder stone Telemedicine Evaluation 15 min Consultation Up[employer]sel Regine Video Tadalafil did not help with nocturia Had previously been on combination therapy with tamsulosin Trial doxazosin 4 mg See in office in three-month Main issue is nocturia 2-3 times Has control of urination during day May be developing change in cyclic urination Bladder Stone Imaging - 05/08 There is a mobile echogenic stone measuring 2.1 x 1.0 x 2.0 cm in the dependent portion. Bilateral ureteral jets are demonstrated. Prevoid bladder volume is 194 mL. Postvoid bladder volume is 104 mL. Prostate volume measures 57 mL. Procedure - 07/09 cystoscopy with cystolitholapaxy Elevated PSA/Abnormal MARY: Continue with finasteride PSA dropped appropriately to 50% initial value He presents for further evaluation of elevated PSA. Current management is observation. 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) NARINDER positive Normal colonoscopy Heart murmur Osteoarthritis Hyperlipidemia Elevated PSA History of recurrent UTIs BPH (benign prostatic hyperplasia) Hypertension Surgical History H/O colonoscopy H/O vasectomy History of arthroscopy of knee Family History Father Lung cancer HTN (hypertension) Mother CVD (cardiovascular disease) Kidney disease Cancer Other Mental health disorder Substance use disorder Social History Housing: House Alcohol intake: never Patient Tobacco Use Status: Never used Tobacco e-Cigarette/Vaping Use: Never Used Second Hand Smoke Exposure: Yes service: No 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 Current occupational exposures/hazards: No Cognitive needs: No Hearing needs: No Vision needs: Yes Review of Systems Const All systems reviewed & are unremarkable except as noted in HPI and below Reports no additional complaints Resp Reports no additional complaints GI Reports no additional complaints Reports as per HPI Musc Reports no additional complaints Physical Exam Telemedicine evaluation Appropriate responses Regular breathing rate and rhythm HEENT Head: Yes normal to inspection Ears: hearing grossly normal bilaterally Eyes General: appearance normal, both eyes and all related structures Neck Neck: Yes normal visual inspection Chest Chest palpation & inspection: normal inspection of the chest Resp Effort & Inspection: normal respiratory effort and able to speak in complete sentences Telehealth Telehealth Location of provider rendering services: practice address Location of patient: address on file Patient Identification confirmed using: Name, : Yes Telehealth method: voice only Patient verbally consented to treatment: Yes Patient verbally consented to billing insurance company: Yes Patient informed of any privacy concerns related to visit: Yes Assessment & Plan Assessment & Plan (1) Elevated PSA: Code(s): R97.20 - Elevated prostate specific antigen [PSA] Category: Medical (2) BPH loc w urin obs/LUTS: Code(s): N40.1 - Benign prostatic hyperplasia with lower urinary tract symptoms Category: Medical (3) Nocturia more than twice per night: Code(s): R35.1 - Nocturia Category: Medical Plan Three-month follow-up office PVR Medications: New doxazosin 4 mg PO BEDTIME 30 days 30 tabs 2RF N40.1 - Benign prostatic hyperplasia with lower urinary tract symptoms Discontinued tadalafil BIN N Group [facility] 33 [id number] Discontinued Reason: Patient Completed Course 5 mg PO DAILY 90 days 90 tabs 0RF sexual activity R35.1 - Nocturia Patient Instructions: This note is constructed using voice recognition software. While every effort has been made to ensure accuracy machine heel seat laster errors may have been included. Imaging studies, laboratory and physical exam results were discussed and reviewed in detail. No major barriers to patient understanding were identified. An opportunity to ask questions regarding the treatment plan was provided. All questions were answered. The patient expressed understanding and agreement with the above treatment plan. The patient is aware they should contact our office by phone for worsening of their current condition or the appearance of new urologic symptoms. Compliance is encouraged with any medications and followup testing that is ordered. It is a privilege to participate in the urologic care of your patient. If you have any questions or concerns regarding treatment for the above conditions, or other urologic issues, please do not hesitate to contact me. The office telephone contact is [phone]. Sincerely, Dr Jamal Vital MD, [facility] - Urology Compassionate Specialist Care for the Genitourinary System Coding Level of Care Code Tele Est Pt Level 3 (69409) Complex EM visit Add On G2211 Diagnoses Elevated PSA R97.20 BPH loc w urin obs/LUTS N40.1 Nocturia more than twice per night R35.1
--- OUTSIDE RECORDS SUMMARY | 2024-11-16 09:25 | XMS_ITS | Clinical Summary ---
Author Organization [facility] Address [address] [place] [address] Care Team Providers Care Deckhand Oyster Dredge Name Role Phone Gil Yanes MD Primary Care Provider [phone] Social History Tobacco Use Types Packs/Day Years [...] - 2023-2 5 season) 2024 Influenza Vaccine (Season Ended) 2025 RSV Immunization Adult Patie nts (1 - 1-dose 75+ series) 2031 HIB [...] age to complete this topic Meningococcal B Vaccine Aged Out No l onger eligible based on patient's age to complete this topic RSV Immunization Patients Un kelly 20 months Aged Out No longer eligible b ased on patient's age to complete this topic Varicella Vaccines Aged Out No longer eligible based on patient's age to complete this topic Care Teams Deckhand Oyster Dredge Relationship Specialty Start Date End Date Gil Yanes MD [address] [place] [phone] PCP - General 05/22/16
== END 2024-11-16 09:58 | disposition home or self-care (01) ==
LOC: HO.HUSH 08:50
PROVIDERS: PCP Nurse Practitioner Family; Visit Provider Urology
DX: R97.20 Elevated prostate specific antigen [PSA] (principal); N40.1 Benign prostatic hyperplasia with lower urinary tract symptoms; R35.1 Nocturia
CPT/HCPCS: 99213; G2211

== ENCOUNTER 2024-12-20 09:59 | Outpatient (AMB) | payer MEDICARE, SELFPAY ==
[2024-12-20 10:06] VITALS: BP 136/74; PULSE 62; O2SAT 96
--- NOTE | 2024-12-20 10:06 | A.OFFPC_ITS ---
Vital Signs 12/20/24 10:06 Height 6 ft 3 in Weight 240 lb BMI 30.0 BP 136/74 Blood Pressure Location Lt brachial Position Sitting Pulse 62 Pulse Source Pulse Oximeter Pulse Oximetry (%) 96 Oxygen Delivery Method Room Air Intake Visit Reasons: 6m follow up Videotape Sales Representative Required: No Accompanied by: Self / Same As Patient Allergies chlorthalidone (CHLORTHALIDONE) Allergy (Mild, Verified 12/20/24 10:07) RASH , Rash zinc (ZINC) Allergy (Mild, Verified 12/20/24 10:07) RASH, TINGLING IN MOUTH, Rash Tobacco use date assessed: 12/20/24 Fall risk assessment: No Falls in past year Last assessed Fall Risk: 12/20/24 Dental Screening Dental Screen Date: 12/20/24 Did you have a dental visit in the last 12 months?: Yes Did you have a dental problem in the last 6 months where you did not have access to dental care?: No Was dental information given to patient?: Patient has dentist HPI 6m follow up HPI Details Chief Complaint The patient presents for a follow-up regarding hypertension management. History of Present Illness The patient is a 69-year-old male presenting with hypertension management. He denies dizziness, blurred vision, chest pain, shortness of breath, or headaches. The patient reports weight loss and increased activity levels, along with dietary improvements. A very faint systolic murmur was noted during the cardiovascular examination, but no edema was present. Social History - Exercise: Increased activity levels re ported - Nutrition: Watching diet more closely Health Maintenance - Lifestyle modification: Increased phys ical activity and dietary improvements Review of Systems - Cardiovascular: Denies dizziness, blur red vision, chest pain - Respiratory: Denies shortness of breat h - Neurological: Denies headaches Physical Exam General: Cooperative, healthy appearing, comfortable, no acute distress and well developed Orientation: Patient oriented x3 Limitations: No limitations Head: Normal to inspection Ears: Hearing grossly normal bilaterally Nose: Normal external nose present Face and sinus: Normal facial exam Eyes: Appearance normal, both eyes and all related structures Neck: Normal visual inspection and Yes full ROM Respiratory: Normal respiratory effort and able to speak in complete sentences. Clear to auscultation bilaterally Cardiovascular: Regular rate and rhythm. Normal S1 and S2, very faint systolic murmur GI: Normal to inspection. Soft to palpation and nontender Skin: No rashes or lesions noted Neuro: Patient oriented x3 Extremities: No edema, normal to inspection Results Plan The patient will continue with current hypertension management, emphasizing lifestyle modifications such as increased physical activity and dietary improvements. Further cardiovascular evaluation may be considered due to the presence of a faint systolic murmur, although no immediate intervention is required. [facility] Medical History Macular degeneration Physical exam Bladder stone (~07/2023) [place] syndrome Monoclonal gammopathy of unknown significance (MGUS) NARINDER positive Normal colonoscopy Heart murmur Osteoarthritis Hyperlipidemia Elevated PSA History of recurrent UTIs BPH (benign prostatic hyperplasia) Hypertension Surgical History H/O colonoscopy H/O vasectomy History of arthroscopy of knee Family History Father Lung cancer HTN (hypertension) Mother CVD (cardiovascular disease) Kidney disease Cancer Other Mental health disorder Substance use disorder Social History Housing: House Alcohol intake: never Patient Tobacco Use Status: Never used Tobacco e-Cigarette/Vaping Use: Never Used Second Hand Smoke Exposure: Yes service: No 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 1. Little interest or pleasure in doing things: not at all 2. Feeling down, depressed, or hopeless: not at all 3. Trouble falling or staying asleep, or sleeping too much: not at all 4. Feeling tired or having little energy: not at all 5. Poor appetite or overeating: not at all 6. Feeling bad about yourself - or that you are a failure or have let yourself or your family down: not at all 7. Trouble concentrating on things, such as reading the newspaper or watching television: not at all 8. Moving or speaking so slowly that other people could have noticed. Or the opposite - being so fidgety or restless that you have been moving around a lot more than usual: not at all 9. Thoughts that you would be better off or of hurting yourself in some way: not at all Total score: 0 Depression Screening Interpretation: Negative Depression Screening Done: Yes 96493 - PHQ-9 Billing: Yes Source: Developed by Drs. Rafi Johnson, Carla Thurman, Rivera Benites and colleagues, with an educational samir from [employer]. Thrive Questionnaire Date Thrive assessed: 12/20/24 I am a: Patient What is your living situation today?: I have a steady place to live Within the past 12 months, did the food you bought not last and you didn't have the money to get more?: Never true Within the past 12 months, did you worry whether your food would run out before you got money to buy more?: Never true Do you have trouble paying for medicines?: No Do you have trouble getting transportation to medical appointments?: No Do you have trouble paying your heating and electricity bill?: No Do you have trouble taking care of your child, family member or friend?: No Do you have trouble with day-to-day activities such as bathing, preparing meals, shopping, managing finances, etc.?: No Are you currently unemployed and looking for a job?: No Are you interested in more education?: No Please select the resources that you would like help with: None Currently or been in a relationship where the following occur: No concerns reported THRIVE Score: 0 AUDIT C Alcohol Use Questionnaire (AUDIT-C) 1. How often do you have a drink containing alcohol?: Never 3. How often do you have six or more drinks on one occasion?: Never Total Score: 0 Score Reviewed/Action Taken: Yes CAILIN-7 AMB Questionnaire CAILIN-7 Date CAILIN - 7 assessed: 12/20/24 Feeling nervous, anxious, or on edge: 0 = Not at all Not being able to stop or control worryin = Not at all Worrying too much about different things: 0 = Not at all Trouble relaxin = Not at all Being so restless that it is hard to sit still: 0 = Not at all Becoming easily annoyed or irritable: 0 = Not at all Feeling afraid as if something awful might happen: 0 = Not at all Total CAILIN-7 score (0-4 normal; 5-9 mild; 10-14 moderate; 15-21 severe): 0 Source: Developed by Drs. Rafi Johnson, Carla Thurman, Rivera Benites and colleagues, with an educational samir from [employer]. CAILIN-7 Assessment Billing CAILIN-7 Assessment Tool: CAILIN-7 Assessment 24387 Physical exam (Primary Care) Vital Signs: Last Vital Signs Pulse 62 12/20/24 10:06 BP 136/74 12/20/24 10:06 Pulse Ox 96 12/20/24 10:06 Oxygen Delivery Method Room Air 12/20/24 10:06 BMI result Body Mass Index 30.0 Tobacco/Smoking Status: Tobacco use Status Tobacco use date assessed 12/20/24 12/20/24 10:08 Patient Tobacco Use Status Never used Tobacco 12/20/24 10:08 e-Cigarette/Vaping Use Never Used 12/20/24 10:08 PHQ-9: PHQ-9 Score PHQ-9: Total score 0 12/20/24 10:14 Depression Screening Interpretation: Negative Thrive Assessment: Date of Thrive Assessment Date Thrive assessed 12/20/24 12/20/24 10:08 Currently or been in a relationship where the following occur: No concerns reported Coding Level of Care Code Est Pt Level 3 (91613) Diagnoses Hypertension I10 Screening for prostate cancer Z12.5 Vitamin D deficiency E55.9 Additional Codes CAILIN-7 Assessment Billing - CAILIN-7 Assessment Tool: CAILIN-7 Assessment 02411 ([id number]) PHQ-9 - 21187 - PHQ-9 Billing: Yes ([id number]) Assessment & Plan Assessment & Plan (1) Hypertension: Code(s): I10 - Essential (primary) hypertension Category: Medical (2) Screening for prostate cancer: Code(s): Z12.5 - Encounter for screening for malignant neoplasm of prostate Category: Medical (3) Vitamin D deficiency: Code(s): E55.9 - Vitamin D deficiency, unspecified Category: Medical Plan . Orders: Orders UA CC w/rflx Micro + Cult Today I10 - Essential (primary) hypertension Lipid Panel Today I10 - Essential (primary) hypertension Vitamin D 25-OH Total Today E55.9 - Vitamin D deficiency, unspecified Complete Blood Count Auto Diff Today I10 - Essential (primary) hypertension Comprehensive Cammal. Panel Fast Today I10 - Essential (primary) hypertension TSH reflex Free T4 Today I10 - Essential (primary) hypertension Prostate Specific Antigen Scr Today Z12.5 - Encounter for screening for malignant neoplasm of prostate
--- OUTSIDE RECORDS SUMMARY | 2024-12-20 10:39 | XMS_ITS | Clinical Summary ---
Author Organization [facility] it Address [address] [place] [address] Care Team Providers Care Slate Splitting Supervisor Name Role Phone Gil Yanes MD Primary Care Provider [phone] Social History Tobacco Use Types Packs/Day Years [...] 2023-2 5 season) 2024 Influenza Vaccine (#1) 2025 RSV Immunization Adult Patie nts (1 [...] age to complete this topic Care Teams Slate Splitting Supervisor Relationship Specialty Start Date End Date Gil Yanes MD [address] [phone] PCP - General 05/22/16
--- OUTSIDE RECORDS SUMMARY | 2024-12-20 10:39 | XMS_ITS | Encounter Summary ---
Author Organization [employer] Address [address] [place] [address] Care Team Providers Care Aging Department Supervisor Name Role Phone Unavailable Primary Care Provider Unavailabl e Encounter Details Date Type Department Care Team (Latest Contact Info) Description 11/25/2018 Abstract [facility] CONVERSIONS Dental, Provider, DDS Social History [...]
== END 2024-12-20 11:10 | disposition home or self-care (01) ==
LOC: HO.HMCC 10:00
PROVIDERS: PCP Nurse Practitioner Family; Visit Provider Nurse Practitioner Family
DX: I10 Essential (primary) hypertension (principal); Z12.5 Encounter for screening for malignant neoplasm of prostate; E55.9 Vitamin D deficiency, unspecified

== ENCOUNTER → 2024-12-20 09:59 | Outpatient (BNVA) | payer MEDICARE, SELFPAY | PROVIDERS: PCP Nurse Practitioner Family; Visit Provider Nurse Practitioner Family | DX: I10 Essential (primary) hypertension (principal); E55.9 Vitamin D deficiency, unspecified | CPT/HCPCS: 96127; 99212 ==

== ENCOUNTER 2024-12-22 09:27 | Outpatient (REF) | payer MEDICARE, SELFPAY ==
--- OUTSIDE RECORDS SUMMARY | 2024-12-22 09:50 | XMS_ITS | Clinical Summary ---
Author Organization [facility] it Address [address] [place] [address] Care Team Providers Care Internal Control Manager Name Role Phone Gil Yanse MD Primary Care Provider [phone] Social History Tobacco Use Types Packs/Day Years [...] age to complete this topic Care Teams Internal Control Manager Relationship Specialty Start Date End Date Gil Yanes MD [address] [phone] PCP - General 05/22/16
--- OUTSIDE RECORDS SUMMARY | 2024-12-22 09:50 | XMS_ITS | Encounter Summary ---
Author Organization [employer] Address [address] [place] [address] Care Team Providers Care Personal Security Specialist Name Role Phone Unavailable Primary Care Provider Unavailabl e Encounter Details Date Type Department Care Team (Latest Contact Info) Description 11/25/2018 Abstract [facility] CONVERSIONS Dental, Provider, DDS Social [...]
[2024-12-22 10:26] LABS: MANUAL DIFF FLAG NO
[2024-12-22 10:42] LABS: Hematocrit 41.1 % (42.0-52.0); Hemoglobin 14.1 g/dl (14.0-18.0); Imm Gran Abs Auto 0.01 X10*3/uL (0.00-0.03); Imm Gran Pct Auto 0.2 % (0.0-0.4); Lymphocytes Absolute Auto 1.1 X10*3/uL (1.2-4.9); Mean Corpuscular HGB Conc 34.3 g/dl (31.0-36.0); Mean Corpuscular Hemoglobin 31.3 pg (27.0-33.0); Mean Corpuscular Volume 91.1 fL (80.0-98.0); NRBC Abs Auto 0.000 X10*3/uL (0.0-0.012); NRBC Pct Auto 0.0 /100WBC (0.0-0.2); Platelet Count 194 X10*3/uL (160-400); Red Blood Count 4.51 X10*6/uL (4.60-5.80); White Blood Count 4.7 X10*3/uL (4.8-10.8)
[2024-12-22 10:57] LABS: Appearance Urine Clear; Glucose Urine UA Negative (Negative); PH 7.5 (5.0-9.0); Specific Gravity - Urine 1.010 (1.005-1.025); UMIC TRIGGER UACC YES
[2024-12-22 11:13] LABS: Alanine Aminotransferase 11 U/L (0-40); Albumin Level 4.3 g/dL (3.5-5.0); Alkaline Phosphatase 101 U/L (39-117); Anion Gap 10 (12-20); Aspartate Amino Transferase 23 U/L (5-37); Blood Urea Nitrogen 10 mg/dL (9-16); Calcium 9.2 mg/dL (8.4-10.2); Carbon Dioxide 28 mmol/L (22-29); Chloride 106 mmol/L (96-108); Cholesterol 162 mg/dL (<200); Estimated Glomerular Filt Rate > 60; HDL Cholesterol 39 mg/dL (>40); Potassium 4.2 mmol/L (3.3-5.1); Sodium 140 mmol/L (135-145); Total Protein 6.3 g/dL (6.5-8.0); Triglycerides 112 mg/dL (<150)
[2024-12-22 11:23] LABS: UACC Culture Trigger YES
== END 2024-12-22 09:28 | disposition home or self-care (01) ==
LOC: HO.HMGCLDS 09:27
PROVIDERS: PCP Nurse Practitioner Family; Visit Provider Nurse Practitioner Family
DX: Z12.5 Encounter for screening for malignant neoplasm of prostate (principal); I10 Essential (primary) hypertension; E55.9 Vitamin D deficiency, unspecified
CPT/HCPCS: 36415; 80053; 80061; 81001; 82306; 84153; 84443; 85025; 87086

== ENCOUNTER 2025-01-27 14:42 | Outpatient (AMB) | payer MEDICARE, SELFPAY ==
[2025-01-27 14:54] VITALS: BP 127/62; PULSE 55; BMI 29.8
--- NOTE | 2025-01-27 14:54 | A.OFFVIS_ITS ---
Vital Signs 01/27/25 14:54 Height 6 ft 3 in Weight 238 lb 1.588 oz BMI 29.8 BP 127/62 Blood Pressure Location Rt brachial Position Sitting Pulse 55 Intake Visit Reasons: Gifford screening. KIMANI 2023 elevated labs Intake Note: Patient in office today for colonoscopy screening. CC: Patient denies having any GI symptoms or concerns today. He states that he is due for colonosocopy. Cable Former Required: No Accompanied by: Self / Same As Patient Allergies chlorthalidone (CHLORTHALIDONE) Allergy (Mild, Verified 01/27/25 15:05) RASH , Rash zinc (ZINC) Allergy (Mild, Verified 01/27/25 15:05) RASH, TINGLING IN MOUTH, Rash HPI HPI Gifford screening. KIMANI 2023 elevated labs: Details: Assessment & Plan (1) Gallstones: Code(s): K80.20 - Calculus of gallbladder without cholecystitis without obstruction Category: Medical (2) Elevated alkaline phosphatase level: Code(s): R74.8 - Abnormal levels of other serum enzymes Category: Medical (3) Elevated bilirubin: Code(s): R17 - Unspecified jaundice Category: Medical Plan He continues to be well and w/o any GB sx. He does not have any autoimmune markers to indicate PBC, so we again discuss sn/sx that would necessitate and ER visit. At this time he is not in favor of an elective gavin, and he saw Dr. Santos who also agreed. ROV prn. PMX MGUS Hypertension BPH High cholesterol Heart murmur Family history of colon cancer [facility]: Laboratory Tests 12/22/24 09:30 WBC 4.7 L Hgb 14.1 Hct 41.1 L MCV 91.1 MCH 31.3 Plt Count 194 Estimated GFR > 60 Total Bilirubin 2.7 H AST 23 ALT 11 Alkaline Phosphatase 101 TSH 0.85 TODAY'S VISIT. HE HAS BEEN LOST TO FOLLOW-UP since 2023 in his apparently here today for screening colonoscopy. He says his last colonoscopy was about 14 years ago with [facility], he has never had polyps.. His mother had colon cancer in her 80s and it was never stressed to him that he should be having a colonoscopy about every 5 years. He denies any bowel or upper GI problems. He denies any cardiac or respiratory problems. There are no prior problems with anesthesia or sedation. There are no infectious disease problems. Again his mother had colorectal cancer. [facility], [facility] Medical History (Updated 01/27/25 @ 15:05 by SANKET Hardin) Elevated alkaline phosphatase level Encounter for subsequent annual wellness visit (AWV) in Medicare patient Screening for prostate cancer Screening for colon cancer Macular degeneration Physical exam Bladder stone (~07/2023) [place] syndrome Monoclonal gammopathy of unknown significance (MGUS) NARINDER positive Normal colonoscopy Heart murmur Osteoarthritis Hyperlipidemia Elevated PSA History of recurrent UTIs BPH (benign prostatic hyperplasia) Hypertension Surgical History (Updated 01/27/25 @ 15:23 by SANKET Hardin) Hx of tonsillectomy H/O colonoscopy H/O vasectomy History of arthroscopy of knee Family History Father Lung cancer HTN (hypertension) Mother CVD (cardiovascular disease) Kidney disease Cancer Other Mental health disorder Substance use disorder Social History Housing: House Alcohol intake: never Patient Tobacco Use Status: Never used Tobacco e-Cigarette/Vaping Use: Never Used Second Hand Smoke Exposure: Yes service: No 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 Current occupational exposures/hazards: No Cognitive needs: No Hearing needs: No Vision needs: Yes Review of Systems Const Denies fatigue, Denies fever(s), Denies night sweats, Denies poor appetite and Denies weight loss Eyes Details: glasses Reports requires corrective lenses ENT Reports Normal hearing present, Denies dysphagia, Denies odynophagia, Denies throat swelling and Denies tongue swelling GI Details: Denies abdominal pain, Denies melena, Denies bloating, Denies hematochezia, Denies constipation, Denies GI cramping, Denies dysphagia, Denies excessive flatus, Denies early satiety, Denies heartburn, Denies diarrhea, Denies nausea, Denies odynophagia, Denies vomiting and Denies hematemesis Skin/Breast Denies pruritus, Denies lesions, Denies rash and Denies jaundice Neuro Reports Normal hearing present and Denies Abnormal speech present Endo Denies fatigue Aller/Immun Denies throat swelling and Denies tongue swelling Physical Exam Vital Signs: Last Vital Signs Pulse 55 01/27/25 14:54 BP 127/62 01/27/25 14:54 BMI result Body Mass Index 29.8 Const General: cooperative, no acute distress, well developed and well groomed Nutritional Appearance: well nourished and overweight Orientation/consciousness: oriented to person, oriented to place and oriented to time Limitations: No language barrier HEENT Head: Yes normocephalic and Yes atraumatic Eyes General: appearance normal, both eyes and all related structures Pupils: Equal, round and reactive pupils present Neck Neck: Yes normal visual inspection and Yes no lymphadenopathy Thyroid: Thyroid normal Resp Effort & Inspection: normal respiratory effort and able to speak in complete sentences Auscultation: clear to auscultation bilaterally Cardio Rate: regular rate Rhythm: regular rhythm Heart sounds: Normal, physiologic split S2 sound present Peripheral pulses: radial pulses present and posterior tibial pulses present GI Inspection: No distended, No Abdominal panniculus present and Yes obesity Palpation (GI): Soft to palpation, nontender, no guarding, not rigid and No hepatosplenomegaly present Percussion: Yes normal to percussion Auscultation: normal bowel sounds Rectal Exam - Male: Yes deferred Skin General skin exam: no rashes or lesions noted, turgor normal, skin not dry, no jaundice, No spider nevi and no striae Rashes: no rashes Nails: normal Neuro General: oriented to person, oriented to place and oriented to time Cranial nerves: Yes Equal, round and reactive pupils present and Yes Normal hearing present Speech: No Abnormal speech present Extrem General: Yes normal to inspection, No clubbing, No cyanosis and No edema Psych Appearance: grossly normal and well kempt Mental Status: mental status grossly normal Speech and movement: Normal speech and movement present Affect: normal affect Attitude: cooperative Thought process: Normal thought process present and not confabulating Thought content: Normal thought content present Insight: Good insight present (Psych) Judgement: Good judgement present (Psych) Assessment & Plan Assessment & Plan (1) Pre-op examination: Code(s): Z01.818 - Encounter for other preprocedural examination Category: Medical (2) Family history of colon cancer: Code(s): Z80.0 - Family history of malignant neoplasm of digestive organs Category: Medical Plan HE HAS BEEN LOST TO FOLLOW-UP since 2023 in his apparently here today for screening colonoscopy. He says his last colonoscopy was about 14 years ago with [facility], he has never had polyps.. His mother had colon cancer in her 80s and it was never stressed to him that he should be having a colonoscopy about every 5 years. He denies any bowel or upper GI problems. He denies any cardiac or respiratory problems. There are no prior problems with anesthesia or sedation. There are no infectious disease problems. Again his mother had colorectal cancer. - Follow a clear liquid diet 24 hours before the colonoscopy. - Ensure to merchandise pickup/receiving associate and properly store bowel preparation solution as prescribed. - Confirm colonoscopy schedule with our office, considering travel plans. - Maintain hydration leading up to your procedure. - Arrange for transportation home post-procedure, as sedation will preclude ability to drive. Orders: Orders Colonoscopy - GI Use Only Today Z80.0 - Family history of malignant neoplasm of digestive organs Medications: New sodium,potassium,mag sulfates 17.5-3.13-1.6 gram (Suprep Bowel Prep Kit) 480 mL orally; FOR COLONOSCOPY PREP 354 mL 0RF Coding Level of Care Code New Pt Level 3 (71683) Diagnoses Pre-op examination Z01.818 Family history of colon cancer Z80.0
--- OUTSIDE RECORDS SUMMARY | 2025-01-27 15:21 | XMS_ITS | Clinical Summary ---
Author Organization [facility] it Address [address] [place] [address] Care Team Providers Care Team Guide Name Role Phone Gil Yanes MD Primary Care Provider [phone] Social History Tobacco Use Types Packs/Day Years [...] Vaccine ( - 2023-2 5 season) 2024 Depression Screening 06/16/2024 Influenza Vaccine (#1) 2025 RSV Immunization Adult [...] age to complete this topic Care Teams Team Guide Relationship Specialty Start Date End Date Gil Yanes MD [address] [id number] PCP - General 05/22/16
--- OUTSIDE RECORDS SUMMARY | 2025-01-27 15:21 | XMS_ITS | Encounter Summary ---
Author Organization [employer] Address [address] [place] [address] Care Team Providers Care Health Analyst Name Role Phone Unavailable Primary Care Provider Unavailabl e Encounter Details Date Type Department Care Team (Latest Contact Info) Description 11/25/2018 Abstract [facility] CONVERSIONS Dental, Provider, DDS Social History Tobacco [...]
== END 2025-01-27 15:28 | disposition home or self-care (01) ==
LOC: HO.HGI 14:43
PROVIDERS: PCP Nurse Practitioner Family; Visit Provider Nurse Practitioner
DX: Z01.818 Encounter for other preprocedural examination (principal); Z12.11 Encounter for screening for malignant neoplasm of colon; Z80.0 Family history of malignant neoplasm of digestive organs
CPT/HCPCS: 99213

== ENCOUNTER → 2025-01-27 14:42 | Outpatient (BNVA) | payer MEDICARE, SELFPAY | PROVIDERS: PCP Nurse Practitioner Family; Visit Provider Nurse Practitioner | DX: Z01.818 Encounter for other preprocedural examination (principal); K80.20 Calculus of gallbladder without cholecystitis without obstruction; R17 Unspecified jaundice; R74.8 Abnormal levels of other serum enzymes; Z80.0 Family history of malignant neoplasm of digestive organs | CPT/HCPCS: 99212 ==

== ENCOUNTER 2025-02-15 08:16 | Outpatient (AMB) | payer MEDICARE, SELFPAY ==
--- NOTE | 2025-02-15 08:19 | MHC.OFFVIS ---
Intake Visit Reasons: 3m/PVR Intake Note: Patient is present for 3M F/U Urology Medication:FINASTERIDE,TADALAFIL, DOXAZOSIN Blood Thinner:NONE TODAY'S PVR: 0MLS Monomer Recovery Operator Required: No Accompanied by: Self / Same As Patient Allergies chlorthalidone (CHLORTHALIDONE) Allergy (Mild, Verified 02/15/25 08:20) RASH , Rash zinc (ZINC) Allergy (Mild, Verified 02/15/25 08:20) RASH, TINGLING IN MOUTH, Rash HPI Comments Details: Shaka is a pleasant male. He is a patient of Dr. Monsivais. He is seen for the following urologic conditions - lower urinary tract symptoms - elevated PSA - erectile dysfunction - on demand sildenafil - bladder stone Follow-up trial doxazosin 4 mg Main issue is nocturia 2-3 times Has control of urination during day May be developing change in cyclic urination Primary issue is making urine at night secondary to blood pressure medications Bladder Stone Imaging - 05/08 There is a mobile echogenic stone measuring 2.1 x 1.0 x 2.0 cm in the dependent portion. Bilateral ureteral jets are demonstrated. Prevoid bladder volume is 194 mL. Postvoid bladder volume is 104 mL. Prostate volume measures 57 mL. Procedure - 07/09 cystoscopy with cystolitholapaxy Elevated PSA/Abnormal MARY: Continue with finasteride PSA dropped appropriately to 50% initial value He presents for further evaluation of elevated PSA. Current management is observation. Laboratory investigations include 04/03 , a total PSA evaluation 5.4 - PSA 08/05 3.1, 03/05 3.1, 06/05 2.7, 06/06 2.0, 05/08 2.5, 02/06 2.4 [facility] Medical History (Updated 01/27/25 @ 15:05 by SANKET Hardin) Elevated alkaline phosphatase level Encounter for subsequent annual wellness visit (AWV) in Medicare patient Screening for prostate cancer Screening for colon cancer Macular degeneration Physical exam Bladder stone (~07/2023) [place] syndrome Monoclonal gammopathy of unknown significance (MGUS) NARINDER positive Normal colonoscopy Heart murmur Osteoarthritis Hyperlipidemia Elevated PSA History of recurrent UTIs BPH (benign prostatic hyperplasia) Hypertension Surgical History (Updated 01/27/25 @ 15:23 by SANKET Hardin) Hx of tonsillectomy H/O colonoscopy H/O vasectomy History of arthroscopy of knee Family History Father Lung cancer HTN (hypertension) Mother CVD (cardiovascular disease) Kidney disease Cancer Other Mental health disorder Substance use disorder Social History Housing: House Alcohol intake: never Patient Tobacco Use Status: Never used Tobacco e-Cigarette/Vaping Use: Never Used Second Hand Smoke Exposure: Yes service: No 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 Current occupational exposures/hazards: No Cognitive needs: No Hearing needs: No Vision needs: Yes Review of Systems Const Denies chills and Denies fever(s) Card Reports no additional complaints and Denies syncope Resp Denies cough GI Denies abdominal pain and Denies heartburn Reports as per HPI and Denies change in libido Neuro Denies syncope Psych Denies change in libido Endo Denies change in libido Physical Exam Const General: cooperative, healthy appearing, comfortable and no acute distress Orientation/consciousness: patient oriented x3 HEENT Face and sinus: Yes normal facial exam Mouth: moist mucous membranes Neck Neck: Yes normal visual inspection, Yes full ROM and Yes trachea midline Chest Chest palpation & inspection: normal inspection of the chest Resp Effort & Inspection: normal respiratory effort, able to speak in complete sentences and no respiratory distress GI Inspection: Yes normal to inspection Back/Spine/Pelvis Cervical Spine: normal cervical lordosis Thoracic/Lumbar Spine: thoracic and lumbar spine normal to inspection Skin General skin exam: no rashes or lesions noted Neuro General: patient oriented x3, gait normal, tone normal and moves all extremities Extrem General: Yes normal to inspection and Yes capillary refill normal Office Procedures Post Void Residual Post Residual Void Post Void Residual (PVR): 0 06707-[id number] Void Residual by ultrasound Results AMB Urinalysis, Automated UA Leukoctes 0 Torito/uL Last Edit by CATY Coy on 02/15/25 08:31 UA Nitrite Negative Last Edit by CATY Coy on 02/15/25 08:31 UA Urobilinogen 0.2 mg/dL Last Edit by CATY Coy on 02/15/25 08:31 UA Protein 0 mg/dL Last Edit by CATY Coy on 02/15/25 08:31 UA pH 7.0 Last Edit by CATY Coy on 02/15/25 08:31 UA Blood 0 Steven/uL Last Edit by CATY Coy on 02/15/25 08:31 UA Specific Bryan 1.010 Last Edit by CATY Coy on 02/15/25 08:31 UA Ketone Negative Last Edit by CATY Coy on 02/15/25 08:31 UA Bilirubin 0 mg/dL Last Edit by CATY Coy on 02/15/25 08:31 UA Glucose 0 mg/dL Last Edit by CATY Coy on 02/15/25 08:31 Results Reviewed Results Reviewed: Laboratory Last Values Urine pH (Auto) 7.0 02/15/25 08:29 Specific Bryan (Auto) 1.010 02/15/25 08:29 Urine Protein (Auto) 0 mg/dL 02/15/25 08:29 Glucose (UA)(Auto) 0 mg/dL 02/15/25 08:29 Urine Ketones (Auto) Negative 02/15/25 08:29 Urine Blood (Auto) 0 Steven/uL 02/15/25 08:29 Urine Nitrite (Auto) Negative 02/15/25 08:29 Urine Bilirubin (Auto) 0 mg/dL 02/15/25 08:29 Urine Urobilinogen (Auto) 0.2 mg/dL 02/15/25 08:29 Leukocyte Esterase (Auto) 0 Torito/uL 02/15/25 08:29 Assessment & Plan Assessment & Plan (1) Nocturia more than twice per night: Code(s): R35.1 - Nocturia Category: Medical (2) Elevated PSA: Code(s): R97.20 - Elevated prostate specific antigen [PSA] Category: Medical Plan Twelve month follow-up Orders: Orders AMB Urinalysis Automated Today Z13.9 - Encounter for screening, unspecified AMB Post Void Residual by ultrasound Today N40.1 - Benign prostatic hyperplasia with lower urinary tract symptoms Patient Instructions: This note is constructed using voice recognition software. While every effort has been made to ensure accuracy flat spring assembler errors may have been included. Imaging studies, laboratory and physical exam results were discussed and reviewed in detail. No major barriers to patient understanding were identified. An opportunity to ask questions regarding the treatment plan was provided. All questions were answered. The patient expressed understanding and agreement with the above treatment plan. The patient is aware they should contact our office by phone for worsening of their current condition or the appearance of new urologic symptoms. Compliance is encouraged with any medications and followup testing that is ordered. It is a privilege to participate in the urologic care of your patient. If you have any questions or concerns regarding treatment for the above conditions, or other urologic issues, please do not hesitate to contact me. The office telephone contact is [phone]. Sincerely, Dr Jamal Vital MD, [facility] - Urology Compassionate Specialist Care for the Genitourinary System Coding Level of Care Code Est Pt Level 3 (67835) Diagnoses Nocturia more than twice per night R35.1 Elevated PSA R97.20 CPT Codes Post Residual Void - PVR CPT Code: 41783-[id number] Void Residual by ultrasound ([id number])
--- OUTSIDE RECORDS SUMMARY | 2025-02-15 08:53 | XMS_ITS | Clinical Summary ---
Author Organization [facility] it Address [address] [place] [address] Care Team Providers Care Client Service Professional Name Role Phone Gil Yanes MD Primary Care Provider [phone] Social History Tobacco Use Types Packs/Day Years [...] 2006 Zoster Vaccines (1 of 2) 2006 Depression Screening 06/16/2024 COVID-19 Vaccine (1 - 2023-2 5 season) 2025 Influenza Vaccine (#1) 2025 RSV Immunization Adult [...] age to complete this topic Care Teams Client Service Professional Relationship Specialty Start Date End Date Gil Yanes MD [address] [id number] PCP - General 05/22/16
--- OUTSIDE RECORDS SUMMARY | 2025-02-15 08:53 | XMS_ITS | Encounter Summary ---
Author Organization [employer] Address [address] [place] [address] Care Team Providers Care Medical Center Manager Name Role Phone Unavailable Primary Care Provider Unavailabl e Encounter Details Date Type Department Care Team (Latest Contact Info) Description 11/25/[address] [facility] CONVERSIONS Dental, Provider, DDS Social History [...]
--- OUTSIDE RECORDS SUMMARY | 2025-02-15 08:53 | XMS_ITS | Encounter Summary ---
Author Organization [employer] Address [address] [place] [address] Care Team Providers Care Residential Designer Name Role Phone Unavailable Primary Care Provider Unavailabl e Encounter Details Date Type Department Care Team (Latest Contact Info) Description 10/19/2020 Abstract [facility] CONVERSIONS Dental, Provider, DDS Social History Tobacco [...]
--- OUTSIDE RECORDS SUMMARY | 2025-02-15 08:53 | XMS_ITS | Clinical Summary ---
Author Organization [employer] Address [address] [place] [address] Care Team Providers Care Fashion Editor Name Role Phone Unavailable Primary Care Provider [...] season) 2024 Influenza Vaccine (#1) 2025 RSV Patients and Pa tients Aged 60 [...]
== END 2025-02-15 09:00 | disposition home or self-care (01) ==
LOC: HO.HUSH 08:17
PROVIDERS: PCP Nurse Practitioner Family; Visit Provider Urology
DX: R35.1 Nocturia (principal); R97.20 Elevated prostate specific antigen [PSA]; Z13.9 Encounter for screening, unspecified
CPT/HCPCS: 99213

== ENCOUNTER → 2025-02-15 08:16 | Outpatient (BNVA) | payer MEDICARE, SELFPAY | PROVIDERS: PCP Nurse Practitioner Family; Visit Provider Urology | DX: R35.1 Nocturia (principal); N40.1 Benign prostatic hyperplasia with lower urinary tract symptoms; R97.20 Elevated prostate specific antigen [PSA] | CPT/HCPCS: 51798; 81003; 99212 ==

== ENCOUNTER 2025-02-22 06:04 | Day surgery (SDC) | payer MEDICARE, SELFPAY ==
--- NOTE | 2025-02-21 11:44 | HO.ANESPROP2 ---
Documented by User: Alissa Deutsch NP 02/21/25 11:44 HPI - Anesthesia Eval Consult details Narrative: 69 yr old male for colonoscopy PMF Active Problems Active Problems: All Active Problems (Updated 01/27/25 @ 15:05 by SANKET Hardin) Pre-op examination (Acute) Vitamin D deficiency (Acute) Balance disorder (Acute) Vertigo (Acute) Osteoarthritis of knees, bilateral (Acute) Toe fracture, right (Acute) Hematuria (Acute) High cholesterol (Acute) Gallstones (Acute) Family history of colon cancer (Acute) Elevated bilirubin (Acute) NARINDER positive (Acute) Hypertension (Acute) Elevated PSA (Acute) BPH loc w urin obs/LUTS (Acute) Nocturia more than twice per night (Acute) Weak urinary stream (Acute) Abnormal SPEP (Acute) Past Medical History Medical History Elevated alkaline phosphatase level Encounter for subsequent annual wellness visit (AWV) in Medicare patient Screening for prostate cancer Screening for colon cancer Macular degeneration Physical exam Bladder stone (~07/2023) [place] syndrome Monoclonal gammopathy of unknown significance (MGUS) NARINDER positive Normal colonoscopy Heart murmur Osteoarthritis Hyperlipidemia Elevated PSA History of recurrent UTIs BPH (benign prostatic hyperplasia) Hypertension Family History Family History Father Lung cancer HTN (hypertension) Mother CVD (cardiovascular disease) Kidney disease Cancer Other Mental health disorder Substance use disorder Family history of problems with anesthesia: No Surgical History Surgical History Hx of tonsillectomy H/O colonoscopy H/O vasectomy History of arthroscopy of knee History of Problems with Anesthesia: No Social History Social History Housing: House Are you a primary child care associate teacher to a significant other at home: No Do you presently have visiting nurse or other home services: No Alcohol intake: never Patient Tobacco Use Status: Former Tobacco user e-Cigarette/Vaping Use: Never Used Second Hand Smoke Exposure: No Use of substances other than those prescribed or required for medical reasons: No Have you been hit, kicked, punched, or otherwise hurt by someone within the past year? 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 Current occupational exposures/hazards: No Cognitive needs: No Hearing needs: No Vision needs: Yes Meds Allergies Allergy/AdvReac Type Severity Reaction Status Date / Time chlorthalidone Allergy Mild RASH , Rash Verified 02/15/25 08:20 (CHLORTHALIDONE) zinc (ZINC) Allergy Mild RASH, Verified 02/15/25 08:20 TINGLING IN MOUTH, Rash Assessment and Plan Final Anesthetic Review Family History of Problems with Anesthesia: No History of Problems with Anesthesia: No Documented by User: Alireza Jackson MD 02/22/25 07:18 PMFSH Past Medical History Medical History Elevated alkaline phosphatase level Encounter for subsequent annual wellness visit (AWV) in Medicare patient Screening for prostate cancer Screening for colon cancer Macular degeneration Physical exam Bladder stone (~07/2023) [place] syndrome Monoclonal gammopathy of unknown significance (MGUS) NARINDER positive Normal colonoscopy Heart murmur Osteoarthritis Hyperlipidemia Elevated PSA History of recurrent UTIs BPH (benign prostatic hyperplasia) Hypertension Functional capacity: independent ambulation Family History Family History Father Lung cancer HTN (hypertension) Mother CVD (cardiovascular disease) Kidney disease Cancer Other Mental health disorder Substance use disorder Surgical History Surgical History Hx of tonsillectomy H/O colonoscopy H/O vasectomy History of arthroscopy of knee Social History Social History Housing: House Are you a primary child care associate teacher to a significant other at home: No Do you presently have visiting nurse or other home services: No Alcohol intake: never Patient Tobacco Use Status: Former Tobacco user e-Cigarette/Vaping Use: Never Used Second Hand Smoke Exposure: No Use of substances other than those prescribed or required for medical reasons: No Have you been hit, kicked, punched, or otherwise hurt by someone within the past year? 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 Current occupational exposures/hazards: No Cognitive needs: No Hearing needs: No Vision needs: Yes Meds Allergies Allergy/AdvReac Type Severity Reaction Status Date / Time chlorthalidone Allergy Mild RASH , Rash Verified 02/15/25 08:20 (CHLORTHALIDONE) zinc (ZINC) Allergy Mild RASH, Verified 02/15/25 08:20 TINGLING IN MOUTH, Rash Exam Exam Date and Time: 02/22/2025 Airway TM Dist: >3cm Neck ROM: Full Partial: Upper Loose/Missing/Broken Teeth: Yes Heart: rrr Lungs: cta Other: normal Assessment and Plan Final Anesthetic Review NPO: Yes ASA Class: II Final Preanesthetic Review: No Changes in Pt Med Stat, Meds/Allgs Chart Reviewed, Consent Obtained/Reviewed and Anes Risks/Benef Reviewed Patient Risk: Low Procedure Risk: Low Anesthetic Plan Anesthetic Plan: MAC: Disposition: Standard PACU
[2025-02-22 06:49] VITALS: BMI 28.8
[2025-02-22 06:53] VITALS: BP 144/64; PULSE 51; RESP 16; TEMP 36.6; O2SAT 95
[2025-02-22] MEDS: Lactated Ringers 1,000 ML 100 ML IVCONT (07:01)
--- NOTE | 2025-02-22 07:39 | P.HPSUR_ITS ---
Pre-Procedural Eval Section A - 24 Hr Update-Section A only Date of Service: 02/22/25 Section B - Complete if H&P > 30 days Chief Complaint: Family history of malignant neoplasm of digestive Relevant Family History (Specify if Yes): No Relevant Social History: None Present Medications: see Short Stay Collaborative assessment Medical History: Significant History (levated alkaline phosphatase level Encou nter for subsequent annual wellness visit (AWV) in Medicare patient Screening for prostate cancer Screening for colon cancer Macular degeneration Physical exam Bladder stone (~07/2023) [place] syndrome Monoclonal gammopathy of unknown significance (MGUS) NARINDER ) History of Previous Operations: Relevant previous surgery/procedure and date(s) ( Hx of tonsillectomy H/O colonoscopy H/O vasectomy History of arthroscopy of knee) Allergies: Allergies Allergy/AdvReac Type Severity Reaction Status Date / Time chlorthalidone Allergy Mild RASH , Rash Verified 02/15/25 08:20 (CHLORTHALIDONE) zinc (ZINC) Allergy Mild RASH, Verified 02/15/25 08:20 TINGLING IN MOUTH, Rash Review of Systems Sugical H&P ROS: Negative: Constitution, Cardiovascular, Respiratory, Neurological, Psychiatric, Hem-Onc, Allergic/Immunologic, Gastrointestinal, Genitourinary, Musculoskeletal, Integumentary, Endocrine and Eyes/Ears/Nose/Throat Exam Surgical H&P Exam: Normal: HEENT, Normal: Heart, Normal: Lungs, Normal: Extremities, Normal: Abdomen, Normal: Skin and Normal: Neurological Plan Diagnosis/Plan: Unchanged I have reviewed the history and physical and performed a pertinent physical examination on my patient. No changes have occurred unless specified. Time Spent With Patient Time: Total time managing care of this patient today ____ minutes.
--- NOTE | 2025-02-22 08:05 | HO.OPN-COLON ---
Colonoscopy Operative Note Operative Note Date of Service: 02/22/25 Narrative: Operative Information Procedure Description: Colonoscopy Indication: hx of polyps Anesthesia: MAC COLONOSCOPY Instrument: Olympus variable stiffness pediatric scope 190L Colonoscopy Monitoring: Vital signs and clinical assessment, continuous EKG monitoring, Pulse oximetry, Carbon Dioxide monitoring and blood pressure monitoring were done throughout the procedure. Colon withdrawal time was 11 minutes. Procedure: The patient was placed in the left lateral decubitis position and pre-procedure medications were administered. After a digital rectal examination of the ano-rectum, the video colonoscope was inserted into the rectum and advanced through the colon to the cecum/TI. The colonoscope was slowly withdrawn in a retrograde panoramic fashion and the colon mucosa was carefully examined including a retroflexed view of the rectum. Findings and interventions are described below. Procedure Difficulty: easy Findings: Terminal Ileum-normal Cecum: 10 mm sessile polyp lifted with eleview and then removed with cold snare with one clip applied for hemostasis Right sided retrofelxion- normal Ascending Colon: normal Transverse Colon -normal Descending Colon:normal Sigmoid Colon: moderate diverticulosis Rectum: Retroflexion with small internal hemorrhoids seen, grade I Anorectum - normal Intervention: cold snare and eleview injection for EMR Colon preparation: [place] Bowel Preparation Scale Right colon; 2 Transverse colon: 2 Left colon; 1-2 (0 = Unprepared colon segment with mucosa not seen due to solid stool that cannot be cleared. 1 = Portion of mucosa of the colon segment seen, but other areas of the colon segment not well seen due to staining, residual stool and/or opaque liquid. 2 = Minor amount of residual staining, small fragments of stool and/or opaque liquid, but mucosa of colon segment seen well. 3 = Entire mucosa of colon segment seen well with no residual staining, small fragments of stool or opaque liquid) Impression and Post Procedure Diagnosis: diverticulosis colon polyp internal hemorrhoids Plan: High fiber diet leaflet Avoid straining at stool, epsom salts and sitz bath, anusol supps or cream Repeat Colonoscopy in 3 years due to areas of fair prep on the left or earlier if clinically indicated Above findings were reviewed with the patient and relevant handouts were provided if indicated.
[2025-02-22 08:09] VITALS: BP 110/54; PULSE 70; RESP 16; TEMP 36.3; O2SAT 97
[2025-02-22 08:19] VITALS: BP 108/62; PULSE 53; RESP 16; TEMP 36.3; O2SAT 97
== END 2025-02-22 08:38 | disposition home or self-care (01) ==
PROVIDERS: PCP Nurse Practitioner Family; Visit Provider Internal Medicine Gastroenterology
PROC: 0DJD8ZZ Inspection of Lower Intestinal Tract, Via Natural or Artificial Opening Endoscopic (ICD-10-PCS; CPT 45378; principal; 2025-02-22 07:30)
DX: Z12.11 Encounter for screening for malignant neoplasm of colon (principal); D12.0 Benign neoplasm of cecum; K57.30 Diverticulosis of large intestine without perforation or abscess without bleeding; K64.0 First degree hemorrhoids; Z80.0 Family history of malignant neoplasm of digestive organs; I10 Essential (primary) hypertension; E78.00 Pure hypercholesterolemia, unspecified; R17 Unspecified jaundice; E55.9 Vitamin D deficiency, unspecified; E80.4 Gilbert syndrome; Z79.899 Other long term (current) drug therapy
CPT/HCPCS: 45381; 45385; 88305; J2003; J2704; J3010

== ENCOUNTER → 2025-02-22 06:04 | Outpatient (BNV) | payer MEDICARE, SELFPAY | PROVIDERS: PCP Nurse Practitioner Family; Visit Provider Internal Medicine Gastroenterology | DX: Z12.11 Encounter for screening for malignant neoplasm of colon (principal); Z86.0100 Personal history of colon polyps, unspecified; D12.0 Benign neoplasm of cecum; K57.30 Diverticulosis of large intestine without perforation or abscess without bleeding; K64.0 First degree hemorrhoids | CPT/HCPCS: 45381; 45385 ==

== ENCOUNTER 2025-05-16 09:25 | Outpatient (REF) | payer MEDICARE, SELFPAY ==
--- OUTSIDE RECORDS SUMMARY | 2025-05-16 11:09 | XMS_ITS | Clinical Summary ---
Author Organization [employer] Address [address] [facility] [address] [place] [address] Care Team Providers Care Turbo Generator Oiler Name Role Phone Unavailable Primary Care Provider [...] of 2) 2006 COVID-19 Vaccine ( - 2024-2 6 season) 2025 Influenza Vaccine (#1) 2025 RSV Patients and [...]
--- OUTSIDE RECORDS SUMMARY | 2025-05-16 11:09 | XMS_ITS | Encounter Summary ---
Author Organization [employer] Address [address] [facility] [address] [place] [address] Care Team Providers Care Visual Education Director Name Role Phone Unavailable Primary Care Provider Unavailabl e Encounter Details Date Type Department Care Team (Latest Contact Info) Description 10/19/2020 Abstract [facility] CONVERSIONS Dental, Provider, DDS Social History Tobacco [...]
--- OUTSIDE RECORDS SUMMARY | 2025-05-16 11:09 | XMS_ITS | Encounter Summary ---
Author Organization [employer] Address [address] [facility] [address] [place] [address] Care Team Providers Care Information Technology Auditor Name Role Phone Unavailable Primary Care Provider Unavailabl e Encounter Details Date Type Department Care Team (Latest Contact Info) Description 11/25/2018 Abstract [facility] CONVERSIONS Dental, Provider, DDS Social History [...]
--- OUTSIDE RECORDS SUMMARY | 2025-05-16 11:09 | XMS_ITS | Clinical Summary ---
Author Organization [facility] it Address [address] [place] [address] Care Team Providers Care Equipment Manager Name Role Phone Gil Yanes MD Primary Care Provider [phone] Social History Tobacco Use Types Packs/Day Years [...] Depression Screening 06/16/2024 COVID-19 Vaccine (1 - 2024-2 6 season) 2025 Influenza Vaccine [...] age to complete this topic Care Teams Equipment Manager Relationship Specialty Start Date End Date Gil Yanes MD [address] [id number] PCP - General 05/22/16
[2025-05-16 13:25] LABS: Appearance Urine Clear; Glucose Urine UA Negative (Negative); PH 8.0 (5.0-9.0); Specific Gravity - Urine 1.020 (1.005-1.025); UMIC TRIGGER UACC YES
[2025-05-16 13:27] LABS: MANUAL DIFF FLAG NO
[2025-05-16 13:43] LABS: Hematocrit 43.9 % (42.0-52.0); Hemoglobin 14.6 g/dl (14.0-18.0); Imm Gran Abs Auto 0.01 X10*3/uL (0.00-0.03); Imm Gran Pct Auto 0.2 % (0.0-0.4); Lymphocytes Absolute Auto 1.4 X10*3/uL (1.2-4.9); Mean Corpuscular HGB Conc 33.3 g/dl (31.0-36.0); Mean Corpuscular Hemoglobin 31.2 pg (27.0-33.0); Mean Corpuscular Volume 93.8 fL (80.0-98.0); NRBC Abs Auto 0.000 X10*3/uL (0.0-0.012); NRBC Pct Auto 0.0 /100WBC (0.0-0.2); Platelet Count 251 X10*3/uL (160-400); Red Blood Count 4.68 X10*6/uL (4.60-5.80); White Blood Count 6.1 X10*3/uL (4.8-10.8)
[2025-05-16 14:30] LABS: Alanine Aminotransferase 15 U/L (0-40); Albumin Level 4.6 g/dL (3.5-5.0); Alkaline Phosphatase 114 U/L (39-117); Anion Gap 10 (12-20); Aspartate Amino Transferase 26 U/L (5-37); Blood Urea Nitrogen 13 mg/dL (9-16); Calcium 9.5 mg/dL (8.4-10.2); Carbon Dioxide 30 mmol/L (22-29); Chloride 104 mmol/L (96-108); Cholesterol 175 mg/dL (<200); Estimated Glomerular Filt Rate > 60; HDL Cholesterol 46 mg/dL (>40); Potassium 4.5 mmol/L (3.3-5.1); Sodium 139 mmol/L (135-145); Total Protein 6.7 g/dL (6.5-8.0); Triglycerides 133 mg/dL (<150)
== END 2025-05-16 09:26 | disposition home or self-care (01) ==
LOC: HO.HMGCLDS 09:25
PROVIDERS: PCP Nurse Practitioner Family; Visit Provider Nurse Practitioner Family
DX: I10 Essential (primary) hypertension (principal); E55.9 Vitamin D deficiency, unspecified
CPT/HCPCS: 36415; 80053; 80061; 81001; 82306; 84443; 85025

== ENCOUNTER 2025-05-18 13:40 | Outpatient (AMB) | payer MEDICARE, SELFPAY ==
[2025-05-18 13:59] VITALS: BP 130/70; PULSE 66; RESP 16; O2SAT 96; BMI 29.5
--- NOTE | 2025-05-18 13:59 | MHC.PC.OV ---
Vital Signs 05/18/25 13:59 Height 6 ft 3 in Intake Visit Reasons: Anual Wellness Treating Plant Pumper Required: No Accompanied by: Self / Same As Patient Allergies chlorthalidone (CHLORTHALIDONE) Allergy (Mild, Verified 02/15/25 08:20) RASH , Rash zinc (ZINC) Allergy (Mild, Verified 02/15/25 08:20) RASH, TINGLING IN MOUTH, Rash Tobacco use date assessed: 05/18/25 Dental Screening Dental Screen Date: 12/20/24 [facility] Medical History Elevated alkaline phosphatase level Encounter for subsequent annual wellness visit (AWV) in Medicare patient Screening for prostate cancer Screening for colon cancer Macular degeneration Physical exam Bladder stone (~07/2023) [place] syndrome Monoclonal gammopathy of unknown significance (MGUS) NARINDER positive Normal colonoscopy Heart murmur Osteoarthritis Hyperlipidemia Elevated PSA History of recurrent UTIs BPH (benign prostatic hyperplasia) Hypertension Surgical History Hx of tonsillectomy H/O colonoscopy H/O vasectomy History of arthroscopy of knee Family History Father Lung cancer HTN (hypertension) Mother CVD (cardiovascular disease) Kidney disease Cancer Other Mental health disorder Substance use disorder Social History Housing: House Are you a primary child care center assistant director to a significant other at home: No Do you presently have visiting nurse or other home services: No Alcohol intake: never Patient Tobacco Use Status: Former Tobacco user e-Cigarette/Vaping Use: Never Used Second Hand Smoke Exposure: No service: No 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 Current occupational exposures/hazards: No Cognitive needs: No Hearing needs: No Vision needs: Yes Questionnaire Thrive Questionnaire Date Thrive assessed: 12/13/24 I am a: Patient What is your living situation today?: I have a steady place to live Within the past 12 months, did the food you bought not last and you didn't have the money to get more?: Never true Within the past 12 months, did you worry whether your food would run out before you got money to buy more?: Never true Do you have trouble paying for medicines?: No Do you have trouble getting transportation to medical appointments?: No Do you have trouble paying your heating and electricity bill?: No Do you have trouble taking care of your child, family member or friend?: No Do you have trouble with day-to-day activities such as bathing, preparing meals, shopping, managing finances, etc.?: No Are you currently unemployed and looking for a job?: No Are you interested in more education?: No Please select the resources that you would like help with: None Currently or been in a relationship where the following occur: No concerns reported THRIVE Score: 0 CAILIN-7 AMB Questionnaire CAILIN-7 Date CAILIN - 7 assessed: 12/20/24 Source: Developed by Drs. Rafi Johnson, Carla Thurman, Rivera Benites and colleagues, with an educational samir from [employer]. Physical exam (Primary Care) Tobacco/Smoking Status: Tobacco use Status Tobacco use date assessed 12/20/24 12/20/24 10:08 Patient Tobacco Use Status Former Tobacco user 02/22/25 08:09 e-Cigarette/Vaping Use Never Used 12/20/24 10:08 Thrive Assessment: Date of Thrive Assessment Date Thrive assessed 12/13/24 02/09/25 07:56 Currently or been in a relationship where the following occur: No concerns reported Coding
--- NOTE | 2025-05-18 14:04 | A.OFFVIS_ITS ---
Intake Vital Signs 05/18/25 13:59 05/18/25 14:09 Height 6 ft 3 in Weight 236 lb BMI 29.5 29.5 BP 130/70 Blood Pressure Location Lt brachial Position Sitting Respiration 16 Pulse 66 Pulse Oximetry (%) 96 Oxygen Delivery Method Room Air Intake Visit Reasons: Anual Wellness Vp Design Required: No Accompanied by: Self / Same As Patient Allergies chlorthalidone (CHLORTHALIDONE) Allergy (Mild, Verified 05/18/25 14:06) RASH , Rash zinc (ZINC) Allergy (Mild, Verified 05/18/25 14:06) RASH, TINGLING IN MOUTH, Rash Do you need a note to return to daycare/school/sports/work: No HPI Anual Wellness HPI Details AWV: PPP in scan pile, CCC in scan pile HPI Comments History of Present Illness Details Chief Complaint The patient presents for a follow-up visit for hypertension. History of Present Illness The patient is a 69 year old individual presenting with a follow-up for hypertension. The patient is doing quite well overall and feels well. Social History Health Maintenance Review of Systems - Cardiovascular: Denies chest pain or e blair. - Respiratory: Denies shortness of breat h. - Neurological: Denies headache. - Eyes: Denies blurred vision. Physical Exam General: Cooperative, healthy appearing, comfortable, no acute distress and well developed Orientation: Patient oriented x3 Limitations: No limitations Head: Normal to inspection Ears: Hearing grossly normal bilaterally Nose: Normal external nose present Face and sinus: Normal facial exam Eyes: Appearance normal, both eyes and all related structures Neck: Normal visual inspection and Yes full ROM Respiratory: Normal respiratory effort and able to speak in complete sentences. Clear to auscultation bilaterally Cardiovascular: Regular rate and rhythm. Normal S1 and S2 GI: Normal to inspection. Soft to palpation and nontender Neuro: Patient oriented x3 Extremities: Normal to inspection, no edema Results - Labs: Lab results are available for re view. Plan 1. Essential Hypertension The patient presents for a follow-up of hypertension and is reported to be doing well with a stable blood pressure. The patient denies any associated symptoms such as chest pain, shortness of breath, headache, or blurred vision. Discussion Notes I reviewed the patient's status for a hypertension follow-up. The patient is doing well overall, with a stable blood pressure and a denial of any concerning symptoms. Patient Instructions [facility] Medical History Encounter for subsequent annual wellness visit (AWV) in Medicare patient Elevated alkaline phosphatase level Screening for prostate cancer Screening for colon cancer Macular degeneration Physical exam Bladder stone (~07/2023) [place] syndrome Monoclonal gammopathy of unknown significance (MGUS) NARINDER positive Normal colonoscopy Heart murmur Osteoarthritis Hyperlipidemia Elevated PSA History of recurrent UTIs BPH (benign prostatic hyperplasia) Hypertension Surgical History Hx of tonsillectomy H/O colonoscopy H/O vasectomy History of arthroscopy of knee Family History Father Lung cancer HTN (hypertension) Mother CVD (cardiovascular disease) Kidney disease Cancer Other Mental health disorder Substance use disorder Social History Housing: House Are you a primary healthcare network pricing consultant to a significant other at home: No Do you presently have visiting nurse or other home services: No Alcohol intake: never Patient Tobacco Use Status: Former Tobacco user e-Cigarette/Vaping Use: Never Used Second Hand Smoke Exposure: No service: No 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 Current occupational exposures/hazards: No Cognitive needs: No Hearing needs: No Vision needs: Yes Questionnaire Medicare Wellness Checkup [age] What gender do you identify with?: male During the past 4 weeks, how much have you been bothered by emotional problems such as feeling anxious, depressed, irritable, sad or downhearted, and blue?: not at all During the past 4 weeks, has your physical & emotional health limited your social activities with family, friends, neighbors, or groups?: not at all During the past 4 weeks, how much bodily pain have you generally had?: very mild pain During the past 4 weeks, was someone available to help you if you needed & wanted help?: yes, as much as I wanted During the past 4 weeks, what was the hardest physical activity you could do for at least 2 minutes?: moderate Can you get to places out of walking distance without help? (For eg., can you travel alone on buses, taxis or drive your car?): Yes Can you go shopping for groceries or clothes without someone's help?: Yes Can you prepare your own meals?: Yes Can you do your housework without help?: Yes Because of any health problems, do you need the help of another person with your personal care needs such as eating, bathing, dressing or getting around the house?: No Can you handle your own money without help?: Yes During the past 4 weeks, how would you rate your health in general?: good During the past 4 weeks how have things been going for you?: pretty well Are you having difficulties driving your car?: no Do you always fasten your seat belt when you are in a car?: yes, usually During past 4 weeks, have you been bothered by the following: never: Falling or dizzy when standing up, Sexual problems?, Trouble eating well?, Teeth or denture problems?, Problems using the telephone? and Tiredness or fatigue? Have you fallen 2 or more times in the past year?: No Are you afraid of falling?: Yes Are you a smoker?: no During the past 4 weeks, how many drinks of wine, beer, or other alcoholic beverages did you have?: no alcohol at all Do you exercise for about 20 minutes 3 or more times a week?: yes, most of the time Have you been given information to help with the following?: yes: Hazards in your house that might hurt you? and yes: Keeping track of your medications? How often do you have trouble taking medicines the way you have been told to take them?: I always take medicine as prescribed How confident are you that you can control & manage most of your health problems?: very confident What is your race?: White Mini Mental State Exam (MMSE) Orientation What is the (year) (season) (date) (day) (month)?: year, season, date, day and month Where are we (state) (county) (town or city) (hospital) (floor)?: state, county, town or city, hospital/clinic and floor Registration Name of 3 unrelated objects clearly and slowly, then ask patient to repeat all 3 of them. (1st repeat determines score. Make sure they can repeat all three): object 1, object 2 and object 3 Attention & Calculation (CHOOSE ONE) Spell WORLD backwards (DLROW): 5 letters Recall Ask patient to repeat the 3 items from question #3.: object 1, object 2 and object 3 Language Show patient a wristwatch & ask what it is. Repeat for pencil.: watch and pencil Ask the patient to repeat the phrase 'No ifs, ands, or buts' after you.: correct Ask the patient to 'take a piece of paper with their right hand' 'fold paper in half' 'place paper on floor': take paper in right hand, fold paper in half and place paper on floor Print the sentence 'CLOSE YOUR EYES' on a piece. If patient actually closes eyes then score.: followed written direction Give patient a blank piece of paper & ask to write a sentence. Score if it contains a noun & verb.: sentence contains subject and verb Ask patient to copy figure of intersecting pentagons exactly. Score if all 10 angles & 2 intersects are included.: all 10 angles present & 2 are intersected Score Score: 30 Activity of Daily Living Bathing - sponge bath, tub bath or shower: receives no assistance (gets in/out by self, if usual bathing means Dressing - getting clothes from closets & drawers, including inner/outer garments & fasteners.: gets clothes & gets completely dressed without help Toileting - going to the 'toilet room' for urine/bowel elimination & cleaning self/arranging clothes: goes to toilet room, cleans self, arranges clothes without help Transfer: moves in & out of bed and chair without help (may use support object) Continence: controls urination/bowel movements completely by self Feeding: feeds self without help Total Score: 0 Information obtained from: patient Using telephone: independent Traveling: independent Shopping: independent Preparing meals: independent Housework: independent Taking medicine: independent Managing money: independent PHQ-9 Over the last 2 weeks, how often have you been bothered by any of the following problems? 1. Little interest or pleasure in doing things: not at all 2. Feeling down, depressed, or hopeless: not at all 3. Trouble falling or staying asleep, or sleeping too much: not at all 4. Feeling tired or having little energy: not at all 5. Poor appetite or overeating: not at all 6. Feeling bad about yourself - or that you are a failure or have let yourself or your family down: not at all 7. Trouble concentrating on things, such as reading the newspaper or watching television: not at all 8. Moving or speaking so slowly that other people could have noticed. Or the opposite - being so fidgety or restless that you have been moving around a lot more than usual: not at all 9. Thoughts that you would be better off or of hurting yourself in some way: not at all Total score: 0 Depression Screening Interpretation: Negative Depression Screening Done: Yes 03171 - PHQ-9 Billing: Yes Source: Developed by Drs. Rafi Johnson, Carla Thurman, Rivera Benites and colleagues, with an educational samir from [employer]. Physical Exam Vital Signs: Last Vital Signs Pulse 66 05/18/25 13:59 Resp 16 05/18/25 13:59 BP 130/70 05/18/25 13:59 Pulse Ox 96 05/18/25 13:59 Oxygen Delivery Method Room Air 05/18/25 13:59 BMI result Body Mass Index 29.5 Neuro Other: neg rhomberg, able to tandem walk, able to stand from a seated position, passed whisper test Immunizations Boostrix Tdap 2.5 Lf unit-8 mcg-5 Lf/0.5 mL intramuscular syringe Performing Provider: LES Hunt Performing Location: [facility] [place] Adult Primary Care-[facility] Administered by: Germania Denny MA on 05/18/25 15:01 Dose Route Admin Location Dispensed Lot Number Expiration Date [facility] Crew Caller 0.5 mL IM Right Deltoid 0.5 mL [id number] 11/26/27 14547-725-01 [employer] Total Dispensed Waste 0.5 mL 0 % VIS Given Date VIS Provided VIS Publication Date 05/18/25 Single Vaccine 21 Eligibility Eligibility Date Funding Source [facility] Eligible-Am [place] 05/18/25 Private Assessment & Plan Assessment & Plan (1) Encounter for subsequent annual wellness visit (AWV) in Medicare patient: Code(s): Z00.00 - Encounter for general adult medical examination without abnormal findings (2) Hypertension: Code(s): I10 - Essential (primary) hypertension Plan . Orders: Orders TDaP Immunization Today Z23 - Encounter for immunization Quality Reporting (2019) Depression/Bipolar (159/160/161/177) PHQ-9: Total score: 0 Coding Level of Care Code Medicare Subsequent (G0439) Est Pt Level 3 (39623) Diagnoses Encounter for subsequent annual wellness visit (AWV) in Medicare patient Z00.00 Hypertension I10 CPT Codes Advance Care Planning - Time spent: 1-15 minutes, on File ([id number]) Additional Codes PHQ-9 - 33921 - PHQ-9 Billing: Yes ([id number]) Advance Care Planning Forms completed: Health Care Proxy (scan pile), MOLST (scan pile) and Living will (pt reports this was done) Time spent: 1-15 minutes, on File Actual minutes spent: 8
[2025-05-18 14:09] VITALS: BMI 29.5
--- OUTSIDE RECORDS SUMMARY | 2025-05-18 16:20 | XMS_ITS | Clinical Summary ---
Author Organization [facility] it Address [address] [place] [address] Care Team Providers Care Cold Roll Packer Sheet Iron Name Role Phone Gil Yanes MD Primary Care Provider [phone] Social History Tobacco Use Types Packs/Day Years [...] age to complete this topic Care Teams Cold Roll Packer Sheet Iron Relationship Specialty Start Date End Date Gil Yanes MD [address] [phone] PCP - General 05/22/16
--- OUTSIDE RECORDS SUMMARY | 2025-05-18 16:20 | XMS_ITS | Encounter Summary ---
Author Organization [employer] Address [address] [facility] [address] [place] [address] Care Team Providers Care Silk Conditioner Name Role Phone Unavailable Primary Care Provider Unavailabl e Encounter Details Date Type Department Care Team (Latest Contact Info) Description 11/25/2018 Abstract [facility] CONVERSIONS Dental, Provider, DDS Social History [...]
--- OUTSIDE RECORDS SUMMARY | 2025-05-18 16:20 | XMS_ITS | Encounter Summary ---
Author Organization [employer] Address [address] [facility] [address] [place] [address] Care Team Providers Care Needle Felt Making Machine Operator Name Role Phone Unavailable Primary Care Provider Unavailabl e Encounter Details Date Type Department Care Team (Latest Contact Info) Description 10/19/2020 Abstract [facility] CONVERSIONS Dental, Provider, DDS Social [...]
--- OUTSIDE RECORDS SUMMARY | 2025-05-18 16:20 | XMS_ITS | Clinical Summary ---
Author Organization [employer] Address [address] [facility] [address] [place] [address] Care Team Providers Care Senior Technical Specialist Name Role Phone Unavailable Primary Care [...]
== END 2025-05-18 14:55 | disposition home or self-care (01) ==
LOC: HO.HMCC 13:41
PROVIDERS: PCP Nurse Practitioner Family; Visit Provider Nurse Practitioner Family
DX: Z00.00 Encounter for general adult medical examination without abnormal findings (principal); I10 Essential (primary) hypertension; Z23 Encounter for immunization

== ENCOUNTER → 2025-05-18 13:40 | Outpatient (BNVA) | payer MEDICARE, SELFPAY | PROVIDERS: PCP Nurse Practitioner Family; Visit Provider Nurse Practitioner Family | DX: Z00.00 Encounter for general adult medical examination without abnormal findings (principal); Z23 Encounter for immunization; I10 Essential (primary) hypertension | CPT/HCPCS: 90471; 90715; 96127; 99212 ==